=== PATIENT | female | born 1950 | race Caucasian/White ===

== ENCOUNTER 2017-05-18 13:58 | Observation (INO) | payer MEDICARE, MEDICAID, SELFPAY ==
[2017-05-18] VITALS (11 sets, daily range): BP systolic 129–185; BP diastolic 63–110; PULSE 80–130; RESP 16–24; TEMP 36.6–36.8; O2SAT 95–98; BMI 49.8; BMI 26.1
--- NOTE | 2017-05-18 14:31 | XR_ITS ---
XR chest portable COMPARISON: Portable upright chest 02/15/2017 HISTORY: Is a right TECHNIQUE: Portable upright chest and crosstable lateral chest FINDINGS: Again noted is mild volume loss right hemithorax with surgical clips in the right suprahilar region. There is minimal post inflammatory or surgical scarring in the right perihilar region. Left lung field is clear. There is mild generalized cardio megaly. IMPRESSION: Stable postsurgical changes right hemithorax no acute chest pathology noted
[2017-05-18 14:52] LABS: Basophils % 0.2 % (0.1-2.0); Eosinophils # 0.1 K/mm3 (0.0-0.4); Eosinophils % 0.8 % (0.1-12.0); Hematocrit 48.6 % (37.0-47.0); Hemoglobin 15.6 g/dL (12.2-16.2); Lymphocytes % 15.2 K/mm3 (10-50); Mean Corpuscular Hemoglobin 25.8 pg (27.0-31.2); Mean Corpuscular Volume 80.5 fl (81-99); Mean Platelet Volume 9.7 fl (7.4-10.4); Monocytes # 0.9 K/mm3 (0.1-1.0); Neutrophils # 10.1 K/mm3 (1.8-7.8); Neutrophils % 76.7 % (37.0-80.0); Platelet Count 353 K/mm3 (142-424); Red Blood Count 6.03 M/mm3 (4.20-5.40); Red Cell Distribution Width 18.3 % (11.5-17.5); White Blood Count 13.1 K/mm3 (4.8-10.8)
--- NOTE | 2017-05-18 14:52 | XR_ITS ---
XR abdomen min 2V COMPARISON: None HISTORY: Vomiting TECHNIQUE: KUB and upright abdomen FINDINGS: Is a small amount gas within the stomach. There is minimal gas in the splenic flexure of the colon and in the sigmoid colon. There are no dilated loops and there are no air-fluid levels and there is no free air. No abnormal soft tissue shadows. IMPRESSION: Somewhat gasless appearing abdomen consistent with history of vomiting and/or diarrhea
--- NOTE | 2017-05-18 14:54 | HMH.EDWEAK ---
ED Disposition Clinical Impression: A-fib, Dehydration, Hypomagnesemia, Vomiting Disposition: Still a Patient Condition on Discharge: Fair Referrals: Dashawn Cedillo MD [Primary Care Provider] - - Critical Care Critical Care Time: No Attestation: On 05/18/17, the high probability of a clinically significant, sudden or life threatening deterioration of the following system(s) required my full and direct attention, intervention and personal management. The time I documented below is in addition to time spent performing reported procedures but includes the following listed in this critical care notation. Medical Decision Making - Medical Records Medical records reviewed: Yes: I reviewed the patient's medical records. Vital Signs: 05/18/17 14:18 Temperature 97.8 F Temperature Source Oral Respiratory Rate 24 02 Sat by Pulse Oximetry 95 Oxygen Delivery Method Room Air - Lab Data Lab Results 05/18/17 14:40: WBC 13.1 H, RBC 6.03 H, Hgb 15.6, Hct 48.6 H, MCV 80.5 L, MCH 25.8 L, MCHC 32.0, RDW 18.3 H, Plt Count 353, MPV 9.7, Neut % (Auto) 76.7, Lymph % (Auto) 15.2, [place] % (Auto) 7.0, Eos % (Auto) 0.8, Baso % (Auto) 0.2, Neut # (Auto) 10.1 H, Lymph # (Auto) 2.0, [place] # (Auto) 0.9, Eos # (Auto) 0.1, Baso # (Auto) 0.0 05/18/17 14:40: Sodium 142, Potassium 3.5, Chloride 104, Carbon Dioxide 27, Anion Gap 14.5, BUN 11, Creatinine 0.69, Estimated Creat Clear 53, Estimated GFR 86, Est GFR ( Amer) 104, Glucose 116 H, Calcium 9.2, Total Bilirubin 0.6, AST 9 L, ALT 16, Alkaline Phosphatase 162 H, Total Creatine Kinase 15 L, CK-MB (CK-2) 0.5, CK-MB (CK-2) Rel Index 3.3, Troponin I < 0.02, Total Protein 7.4, Albumin 2.5 L, Globulin 4.9 H, Albumin/Globulin Ratio 0.5 L 05/18/17 14:40: Lactic Acid 1.1 05/18/17 14:40: B-Natriuretic Peptide 448 H 05/18/17 14:40: Magnesium 1.3 L Result diagrams: 05/18/17 14:40 05/18/17 14:40 Orders (Tests/Meds): ED MEDICATIONS Generic Name Dose Route Start Last Admin Trade Name Freq PRN Reason Stop Dose Admin Sodium Chloride 1,000 mls @ 999 mls/hr 05/18/17 15:00 05/18/17 15:17 Sod Chlor 0.9% 1000ml Bag IV 05/18/17 16:00 999 mls/hr .Q1H1M CARLO Administration Diltiazem HCl 100 mg/ Sodium 100 mls @ 5 mls/hr 05/18/17 15:09 Chloride IV 06/17/17 15:08 .Q20H CARLO Protocol Discontinued Medications Generic Name Dose Route Start Last Admin Trade Name Freq PRN Reason Stop Dose Admin Diltiazem HCl 10 mg 05/18/17 14:54 05/18/17 15:17 Cardizem 25mg/5ml Vial IV 05/18/17 14:55 10 mg ONCE ONE Administration ORDERS Category Date Time Status XR abdomen min 2V Stat Exams 05/18/17 14:52 Taken XR chest AP Routine Exams 05/18/17 15:07 Taken XR chest portable Stat Exams 05/18/17 14:31 Taken Diarrhea Panel, PCR Stat Lab 05/18/17 14:50 Ordered Blood Culture Stat Micro 05/18/17 14:40 Received - ECG Data Tracing #1 Atrial fibrillation with rapid ventricular response of 154/min. Normal ST segment. ECG initial impression date: 05/18/17 ECG initial impression time: 14:58 - Davide Inquiry Pt receiving controlled substance: No [place] was queried for this patient: No Medical Decision Making Narrative: After 1 L of IV fluids at heart rate was reduced 124/min review of the chest x-ray was unremarkable. Her magnesium was low and her white count was 13. Call Dr. Bailey her primary care physician who advised to admit her for IV fluid therapy give her 2 g of magnesium and and Xopenex therapy. Weakness HPI - General Chief complaint: Weakness Stated complaint: WEAKNESS,D/V FOR 1 WK Mode of Arrival: Wheelchair Limitations: No Limitations Description of Symptoms (Recalled from ER Triage Doc. by RN): n/v/d x1 week; afib that is normally controlled with meds; slight soa with a cough - History of Present Illness HPI Narrative: 66 years old white female smoker with history of hypertension atrial fibrillation's and COPD. 7 days ago
--- NOTE | 2017-05-18 14:57 | ED_ITS ---
ED Disposition Clinical Impression: A-fib, Dehydration, Hypomagnesemia, Vomiting Disposition: Still a Patient Condition on Discharge: Fair Referrals: Dashawn Cedillo MD [Primary Care Provider] - - Critical Care Critical Care Time: No Attestation: On 05/18/17, the high probability of a clinically significant, sudden or life threatening deterioration of the following system(s) required my full and direct attention, intervention and personal management. The time I documented below is in addition to time spent performing reported procedures but includes the following listed in this critical care notation. Medical Decision Making - Medical Records Medical records reviewed: Yes: I reviewed the patient's medical records. Vital Signs: 05/18/17 14:18 Temperature 97.8 F Temperature Source Oral Respiratory Rate 24 02 Sat by Pulse Oximetry 95 Oxygen Delivery Method Room Air - Lab Data Lab Results 05/18/17 14:40: WBC 13.1 H, RBC 6.03 H, Hgb 15.6, Hct 48.6 H, MCV 80.5 L, MCH 25.8 L, MCHC 32.0, RDW 18.3 H, Plt Count 353, MPV 9.7, Neut % (Auto) 76.7, Lymph % (Auto) 15.2, [place] % (Auto) 7.0, Eos % (Auto) 0.8, Baso % (Auto) 0.2, Neut # (Auto) 10.1 H, Lymph # (Auto) 2.0, [place] # (Auto) 0.9, Eos # (Auto) 0.1, Baso # (Auto) 0.0 05/18/17 14:40: Sodium 142, Potassium 3.5, Chloride 104, Carbon Dioxide 27, Anion Gap 14.5, BUN 11, Creatinine 0.69, Estimated Creat Clear 53, Estimated GFR 86, Est GFR ( Amer) 104, Glucose 116 H, Calcium 9.2, Total Bilirubin 0.6, AST 9 L, ALT 16, Alkaline Phosphatase 162 H, Total Creatine Kinase 15 L, CK -MB (CK-2) 0.5, CK-MB (CK-2) Rel Index 3.3, Troponin I < 0.02, Total Protein 7.4 , Albumin 2.5 L, Globulin 4.9 H, Albumin/Globulin Ratio 0.5 L 05/18/17 14:40: Lactic Acid 1.1 05/18/17 14:40: B-Natriuretic Peptide 448 H 05/18/17 14:40: Magnesium 1.3 L Result diagrams: 05/18/17 14:40 05/18/17 14:40 Orders (Tests/Meds): ED MEDICATIONS Generic Name Dose Route Start Last Admin Trade Name Freq PRN Reason Stop Dose Admin Sodium Chloride 1,000 mls @ 999 mls/hr 05/18/17 15:00 05/18/17 15:17 Sod Chlor 0.9% 1000ml Bag IV 05/18/17 16:00 999 mls/hr .Q1H1M CARLO Administration Diltiazem HCl 100 mg/ Sodium 100 mls @ 5 mls/hr 05/18/17 15:09 Chloride IV 06/17/17 15:08 .Q20H CARLO Protocol Discontinued Medications Generic Name Dose Route Start Last Admin Trade Name Freq PRN Reason Stop Dose Admin Diltiazem HCl 10 mg 05/18/17 14:54 05/18/17 15:17 Cardizem 25mg/5ml Vial IV 05/18/17 14:55 10 mg ONCE ONE Administration ORDERS Category Date Time Status XR abdomen min 2V Stat Exams 05/18/17 14:52 Taken XR chest AP Routine Exams 05/18/17 15:07 Taken XR chest portable Stat Exams 05/18/17 14:31 Taken Diarrhea Panel, PCR Stat Lab 05/18/17 14:50 Ordered Blood Culture Stat Micro 05/18/17 14:40 Received - ECG Data Tracing #1 Atrial fibrillation with rapid ventricular response of 154/min. Normal ST segment. ECG initial impression date: 05/18/17 ECG initial impression time: 14:58 - Davide Inquiry Pt receiving controlled substance: No [place]ide was queried for this patient: No Medical Decision Making Narrative: After 1 L of IV fluids at heart rate was reduced 124/min review of the chest x- ray was un
[2017-05-18 15:01] LABS: Magnesium 1.3 mg/dL (1.4-2.2)
--- NOTE | 2017-05-18 15:07 | XR_ITS ---
XR chest AP COMPARISON: Portable upright chest same date HISTORY: Shortness of breath TECHNIQUE: Crosstable lateral chest FINDINGS: The lung bullock are grossly clear of infiltrate. Surgical clips are seen in the upper portion of the chest. The thoracic spine appears normal. IMPRESSION: Crosstable lateral chest combined with the portable upright chest confirming no acute chest pathology
[2017-05-18 15:09] LABS: Lactic Acid 1.1 mmol/L (0.4-2.0)
[2017-05-18 15:15] LABS: Alanine Aminotransferase 16 U/L (12-78); Albumin Level 2.5 gm/dL (3.4-5.0); Albumin/Globulin Ratio 0.5 (1.1-1.8); Alkaline Phosphatase 162 U/L (46-116); Anion Gap 14.5 mEq/L (5-15); Aspartate Amino Transferase 9 U/L (15-37); Bilirubin,Total 0.6 mg/dL (0.2-1.0); Blood Urea Nitrogen 11 mg/dL (7-18); CKMB Relative Index 3.3 U/L (0-4.0); Calcium 9.2 mg/dL (8.5-10.1); Carbon Dioxide 27 mmol/L (21.0-32.0); Chloride 104 mmol/L (98-107); Creatine Kinase 15 U/L (26-192); Creatine Kinase MB 0.5 mg/ml (0.0-3.6); Creatinine Clearance Estimated 53 mL/min (0-300); Creatinine,Serum 0.69 mg/dL (0.55-1.02); Estimated Glomerular Filt Rate 86 ml/min (>60); GFR (African American) 104 ML/MIN (>60); Globulin 4.9 gm/dl (1.3-3.2); Glucose 116 mg/dL (74-106); Potassium 3.5 mmoL/L (3.5-5.1); Sodium 142 mmol/L (136-145); Total Protein,Serum 7.4 gm/dL (6.4-8.2); Troponin I < 0.02 ng/ml (0.00-0.06)
--- NOTE | 2017-05-18 17:02 | PC.NURSE ---
STOPPED DILTIAZEM PER ADMITTING PCP REQUEST
--- NOTE | 2017-05-18 17:39 | HMH.HP ---
*Admission Date: 05/18/17 *Chief complaint: weakness/fatigue/vomiting *History of present illness: 66-year-old white female with multiple medical problems including chronic atrial fibrillation, chronic edema, diastolic and systolic CHF, who over the past couple of days has had nausea and vomiting with minimal p.o. intake. She has been feeling very lethargic, brought to the emergency department where she was found to have heart rates in the 150 range with dehydration. She was given a dose of intravenous Cardizem as well as IV fluids which improved her heart rate to 130s. She is admitted to hospital for IV fluids and resumption of regular medications and observation of her heart rate. [facility] History Medical History: Reports:: Anxiety, Arrhythmia, Atherosclerotic Heart Disease, Atrial Fibrillation, Congestive Heart Failure, Depression, Diabetes Mellitus Type 2, Renal Insufficiency - *Social History Educational Level: Completed High School Alcohol Intake: never - Psychiatric History Expresses thoughts of harming self/others: None Suicide Plan Description: No Plan Review of Systems - Review of Systems Review of systems:: unable to obtain, other, pertinent systems reviewed and negative unless documented below Meds Home Medications Medication Instructions Recorded Confirmed Type Apixaban [Eliquis] 1 tab PO DAILY 05/18/17 05/18/17 History Estrogens, Conjugated [Premarin] 1 pow PO DAILY 05/18/17 05/18/17 History Estrogens, Conjugated [Premarin] See Protocol PO DIRECTED 05/18/17 05/18/17 History Gabapentin [Gabapentin 300mg Cap] 1 tab PO DAILY 05/18/17 05/18/17 History Levothyroxine Sodium 1 tab PO DAILY 05/18/17 05/18/17 History [Levothyroxine 50mcg (0.05mg) Tab] PARoxetine HCl [Paroxetine HCl] 1 tab PO DIRECTED 05/18/17 05/18/17 History dilTIAZem HCl [Diltiazem HCl] 1 tab PO DAILY 05/18/17 05/18/17 History Allergies Allergy/AdvReac Type Severity Reaction Status Date / Time Sulfa (Sulfonamide Allergy Intermediate I-HIVES Verified 05/18/17 14:22 Antibiotics) [SULFA (SULFONAMIDE ANTIBIOTICS)] Exam Vital signs and Labs for Last 24 Hours: Temp Pulse Resp BP Pulse Ox 97.8 F 127 H 18 158/83 98 05/18/17 17:16 05/18/17 17:16 05/18/17 17:16 05/18/17 17:16 05/18/17 17:05 I & O for Last 24 hours: Intake & Output 05/16/17 05/17/17 05/18/17 05/19/17 11:59 11:59 11:59 11:59 Intake Total 1400 / 1400 Balance 1400 / 1400 Narrative: Patient is alert, somewhat disheveled. Sitting on the side of the bed, oriented ?2. Little fuzzy about the date but that is her baseline. Lungs have good air movement with some scattered rhonchi, heart rate irregular in the 120 range. Distal perfusion is good, no edema. Abdomen soft and nontender. Assessment and Plan (1) A-fib Current visit: Yes Status: Acute Category: Medical Code(s): I48.91 - Unspecified atrial fibrillation (2) Dehydration Current visit: Yes Status: Acute Category: Medical Code(s): E86.0 - Dehydration (3) Hypomagnesemia Current visit: Yes Status: Acute Category: Medical Code(s): E83.42 - Hypomagnesemia (4) Vomiting Current visit: Yes Status: Acute Category: Medical Code(s): R11.10 - Vomiting, unspecified - Assessment and plan all Dx Assessment and Plan for all problems:: Plan will be to admit to hospital. IV fluids. Replace magnesium. I think rehydration and restarting her regular medications will resolve the rapid response to atrial fibrillation. Close observation. Labs in the morning.
--- NOTE | 2017-05-18 17:42 | P.HP_ITS ---
*Admission Date: 05/18/17 *Chief complaint: weakness/fatigue/vomiting *History of present illness: 66-year-old white female with multiple medical problems including chronic atrial fibrillation, chronic edema, diastolic and systolic CHF, who over the past couple of days has had nausea and vomiting with minimal p.o. intake. She has been feeling very lethargic, brought to the emergency department where she was found to have heart rates in the 150 range with dehydration. She was given a dose of intravenous Cardizem as well as IV fluids which improved her heart rate to 130s. She is admitted to hospital for IV fluids and resumption of regular medications and observation of her heart rate. [facility] History Medical History: Reports:: Anxiety, Arrhythmia, Atherosclerotic Heart Disease, Atrial Fibrillation, Congestive Heart Failure, Depression, Diabetes Mellitus Type 2, Renal Insufficiency - *Social History Educational Level: Completed High School Alcohol Intake: never - Psychiatric History Expresses thoughts of harming self/others: None Suicide Plan Description: No Plan Review of Systems - Review of Systems Review of systems:: unable to obtain, other, pertinent systems reviewed and negative unless documented below Meds Home Medications Medication Instructions Recorded Confirmed Type Apixaban [Eliquis] 1 tab PO DAILY 05/18/17 05/18/17 History Estrogens, Conjugated [Premarin] 1 pow PO DAILY 05/18/17 05/18/17 History Estrogens, Conjugated [Premarin] See Protocol PO DIRECTED 05/18/17 05/18/17 History Gabapentin [Gabapentin 300mg Cap] 1 tab PO DAILY 05/18/17 05/18/17 History Levothyroxine Sodium 1 tab PO DAILY 05/18/17 05/18/17 History [Levothyroxine 50mcg (0.05mg) Tab] PARoxetine HCl [Paroxetine HCl] 1 tab PO DIRECTED 05/18/17 05/18/17 History dilTIAZem HCl [Diltiazem HCl] 1 tab PO DAILY 05/18/17 05/18/17 History Allergies Allergy/AdvReac Type Severity Reaction Status Date / Time Sulfa (Sulfonamide Allergy Intermediate I-HIVES Verified 05/18/17 14:22 Antibiotics) [SULFA (SULFONAMIDE ANTIBIOTICS)] Exam Vital signs and Labs for Last 24 Hours: Temp Pulse Resp BP Pulse Ox 97.8 F 127 H 18 158/83 98 05/18/17 17:16 05/18/17 17:16 05/18/17 17:16 05/18/17 17:16 05/18/17 17:05 I & O for Last 24 hours: Intake & Output 05/16/17 05/17/17 05/18/17 05/19/17 11:59 11:59 11:59 11:59 Intake Total 1400 / 1400 Balance 1400 / 1400 Narrative: Patient is alert, somewhat disheveled. Sitting on the side of the bed, oriented ?2. Little fuzzy about the date but that is her baseline. Lungs have good air movement with some scattered rhonchi, heart rate irregular in the 120 range. Distal perfusion is good, no edema. Abdomen soft and nontender. Assessment and Plan (1) A-fib Current visit: Yes Status: Acute Category: Medical Code(s): I48.91 - Unspecified atrial fibrillation (2) Dehydration Current visit: Yes Status: Acute Category: Medical Code(s): E86.0 - Dehydration (3) Hypomagnesemia Current visit: Yes Status: Acute Category: Medical Code(s): E83.42 - Hypomagnesemia (4) Vomiting Current visit: Yes Status: Acute Category: Medical Code(s): R11.10 - Vomiting, unspecified - Assessment and plan all Dx Assessment and Plan for all problems:: Plan will be to admi
[2017-05-19] VITALS: BP 133/73; PULSE 88; PULSE 90; RESP 20; TEMP 37.1; O2SAT 95
--- NOTE | 2017-05-19 00:28 | PC.NURSE ---
At beginning of shift, pt was experiencing discomfort, and some soa at rest. Rhonchi Bilat. Heart Rate was staying 140's-170. Was complaining of nausea. Notified Dr Cedillo. New order for 1 time dose of cardizem 60mg po, zofran, xopenex 1.25 and 02 at 2L. After medicating, pt was still complaining of nausea and started to cry. Stated legs were cramping and she wanted her son Johnny to come get her. Spoke with Grand daughter on phone per patient request. Explained pt condition. Notifed Dr Cedillo again new order for norco and phenergan. Pt now denies pain and resting well. bp at last check was 133/73, hr 88. Has been in Afib all shift, has a history of Afib. Has no needs at this time and is content. Bed locked in low position, side rails up x 2, call light within reach. Encouraged to notify RN if soa begins or pain/nausea returns. Verbalized understanding.
--- NOTE | 2017-05-19 00:37 | PC.NURSE ---
RN AWARE OF ALL VITAL SIGNS
[2017-05-19 04:00] VITALS: BP 165/81; PULSE 112; PULSE 90; RESP 20; TEMP 36.9; O2SAT 95
[2017-05-19 05:56] VITALS: PULSE 106; PULSE 110; O2SAT 94
[2017-05-19 06:59] LABS: Eosinophils # 0.1 K/mm3 (0.0-0.4); Red Cell Distribution Width 18.2 % (11.5-17.5)
[2017-05-19 07:03] LABS: Anion Gap 10.3 mEq/L (5-15); Blood Urea Nitrogen 9 mg/dL (7-18); Carbon Dioxide 29 mmol/L (21.0-32.0); Chloride 107 mmol/L (98-107); Creatinine Clearance Estimated 66 mL/min (0-300); Creatinine,Serum 0.56 mg/dL (0.55-1.02); Estimated Glomerular Filt Rate 109 ml/min (>60); GFR (African American) 132 ML/MIN (>60); Glucose 88 mg/dL (74-106); Magnesium 1.7 mg/dL (1.4-2.2); Potassium 3.3 mmoL/L (3.5-5.1); Sodium 143 mmol/L (136-145)
[2017-05-19 07:05] LABS: Basophils % 0.3 % (0.1-2.0); Eosinophils % 0.7 % (0.1-12.0); Hematocrit 41.8 % (37.0-47.0); Lymphocytes # 1.9 K/mm3 (0.7-4.5); Lymphocytes % 17.8 K/mm3 (10-50); Mean Corpuscular HGB Conc 31.5 g/dL (31.8-35.4); Mean Corpuscular Hemoglobin 25.8 pg (27.0-31.2); Mean Corpuscular Volume 82.1 fl (81-99); Mean Platelet Volume 9.6 fl (7.4-10.4); Monocytes # 0.8 K/mm3 (0.1-1.0); Monocytes % 7.5 % (1.7-9.3); Neutrophils # 7.7 K/mm3 (1.8-7.8); Neutrophils % 73.7 % (37.0-80.0); Platelet Count 278 K/mm3 (142-424); White Blood Count 10.4 K/mm3 (4.8-10.8)
[2017-05-19 07:06] LABS: Hemoglobin 13.2 g/dL (12.2-16.2)
--- NOTE | 2017-05-19 07:22 | P.CONPHA_ITS ---
[facility] Pharmacy VTE Monitoring - Patient Demographics Admission date: 05/18/17 Report Date: 05/19/17 Time: 07:21 Allergies/Adverse Reactions: Patient Allergies Sulfa (Sulfonamide Antibiotics) [SULFA (SULFONAMIDE ANTIBIOTICS)] Allergy ( Intermediate, Verified 05/18/17 14:22) I-HIVES Height: 1.68 m Weight: 73.652 kg Patient Problems: Current Active Problems A-fib (Acute) Dehydration (Acute) Hypomagnesemia (Acute) Vomiting (Acute) - VTE Risk Labs: VTE Related Lab Results Hgb 13.2 g/dL (12.2-16.2) D 05/19/17 06:30 Hct 41.8 % (37.0-47.0) 05/19/17 06:30 Plt Count 278 K/mm3 (142-424) 05/19/17 06:30 BUN 9 mg/dL (7-18) 05/19/17 06:30 Creatinine 0.56 mg/dL (0.55-1.02) 05/19/17 06:30 Estimated Creat Clear 66 mL/min (0-300) 05/19/17 06:30 Was VTE Risk Assessment Performed: Yes VTE Score: 4 VTE Risk Level: Low Risk - Prophylaxis VTE Prophylaxis Ordered?: Yes Types of VTE Prophylaxis: TEDS Knee High Location of Applied Device: Bilateral Lower Extremeties - VTE Diagnosis Confirmed Treatment or plan recommended: Continue Current Treatment
[2017-05-19 07:52] VITALS: BP 117/62; PULSE 107; RESP 18; TEMP 36.9; O2SAT 95
[2017-05-19 08:00] VITALS: PULSE 110; PULSE 122
--- NOTE | 2017-05-19 08:01 | HMH.DCSUM ---
General - General Admission date: 05/18/17 Discharge date: 05/19/17 HPI HPI: 66-year-old white female with multiple medical problems including chronic atrial fibrillation, chronic edema, diastolic and systolic CHF, who over the past couple of days has had nausea and vomiting with minimal p.o. intake. She has been feeling very lethargic, brought to the emergency department where she was found to have heart rates in the 150 range with dehydration. She was given a dose of intravenous Cardizem as well as IV fluids which improved her heart rate to 130s. She is admitted to hospital for IV fluids and resumption of regular medications and observation of her heart rate. Objective Vital signs: Temp Pulse Resp BP Pulse Ox 98.5 F 107 H 18 117/62 95 05/19/17 07:52 05/19/17 07:52 05/19/17 07:52 05/19/17 07:52 05/19/17 07:52 Narrative: Patient is lying in bed. Alert, awake, oriented. Heart rate is irregular but in the low 100 range. Much improved. Lungs are clear, abdomen soft, no edema. Able to move all extremities. Hospital Course Hospital Course: Patient was admitted overnight, electrolyte disturbances were treated with IV fluid administration. She had no further vomiting. Zofran was used a couple of times. This morning she ate well. She was able to keep her home medications down as a result her heart rate has improved very nicely. She will be discharged home today with regular medications and short-term follow-up in my office. Results Labs on day of discharge: Labs from last 24 hours 05/19/17 05/19/17 06:30 06:30 WBC 10.4 RBC 5.10 Hgb 13.2 D Hct 41.8 MCV 82.1 MCH 25.8 L MCHC 31.5 L RDW 18.2 H Plt Count 278 MPV 9.6 Neut % (Auto) 73.7 Lymph % (Auto) 17.8 [place] % (Auto) 7.5 Eos % (Auto) 0.7 Baso % (Auto) 0.3 Neut # (Auto) 7.7 Lymph # (Auto) 1.9 [place] # (Auto) 0.8 Eos # (Auto) 0.1 Baso # (Auto) 0.0 Sodium 143 Potassium 3.3 L Chloride 107 Carbon Dioxide 29 Anion Gap 10.3 BUN 9 Creatinine 0.56 Estimated Creat Clear 66 Estimated GFR 109 Est GFR ( Amer) 132 D Glucose 88 D Magnesium 1.7 D DS: Diagnosis - Discharge Diagnosis (1) A-fib Status: Chronic (2) Dehydration Status: Acute (3) Hypomagnesemia Status: Acute (4) Vomiting Status: Acute Discharge Plan - Patient Discharge Instructions ACTIVITY: Continue current activity DIET: continue same diet - Follow up Plan Follow up with: Dashawn Cedillo MD [Primary Care Provider] - 05/22/17 Disposition: Home, Self-Longterm Medications: Home Medications Medication Instructions Recorded Confirmed Type Apixaban [Eliquis] 1 tab PO DAILY 05/18/17 05/18/17 History Estrogens, Conjugated [Premarin] 1 pow PO DAILY 05/18/17 05/18/17 History Estrogens, Conjugated [Premarin] See Protocol PO DIRECTED 05/18/17 05/18/17 History Gabapentin [Gabapentin 300mg Cap] 1 tab PO DAILY 05/18/17 05/18/17 History Levothyroxine Sodium 1 tab PO DAILY 05/18/17 05/18/17 History [Levothyroxine 50mcg (0.05mg) Tab] PARoxetine HCl [Paroxetine HCl] 1 tab PO DIRECTED 05/18/17 05/18/17 History dilTIAZem HCl [Diltiazem HCl] 1 tab PO DAILY 05/18/17 05/18/17 History Prescriptions/Medication Reconciliation: Continue Levothyroxine Sodium [Levothyroxine 50mcg (0.05mg) Tab] 1 tab PO DAILY Gabapentin [Gabapentin 300mg Cap] 1 tab PO DAILY dilTIAZem HCl [Diltiazem HCl] 1 tab PO DAILY Apixaban [Eliquis] 1 tab PO DAILY PARoxetine HCl [Paroxetine HCl] 1 tab PO DIRECTED Discontinued Estrogens, Conjugated [Premarin] 1 pow PO DAILY Estrogens, Conjugated [Premarin] See Protocol PO DIRECTED
--- NOTE | 2017-05-19 10:47 | SW/DCPLANNER ---
PATIENT HAS BEEN DISCHARGED FROM THE ACUTE HOSPITAL...PATIENT RESIDES IN THE [facility].. SHE HAS FAMILY THAT CHECKS ON HER REGULARLY AND HELPS TO CARE FOR HER... SHE HAD HOME HEALTH HER LAST ADMISSION WITH P[facility] [place].....
== END 2017-05-19 12:28 | disposition home or self-care (01) ==
LOC: ER 15:53 → 2ND 16:06
PROVIDERS: Admitting Provider Internal Medicine Adolescent Medicine; Emergency Provider Emergency Medicine; Family Provider Internal Medicine Adolescent Medicine; PCP Internal Medicine Adolescent Medicine; Visit Provider Internal Medicine Adolescent Medicine
DX: R11.10 Vomiting, unspecified (principal); I48.2 Chronic atrial fibrillation; E86.0 Dehydration; E83.42 Hypomagnesemia; E11.9 Type 2 diabetes mellitus without complications; I50.20 Unspecified systolic (congestive) heart failure; I25.10 Atherosclerotic heart disease of native coronary artery without angina pectoris
CPT/HCPCS: 36415; 71045; 74019; 80048; 80053; 82550; 82553; 83605; 83735; 83880; 84484; 85025; 87040; 93005; 94640; 96365; 99284; G0378; J2405

== ENCOUNTER 2017-05-28 00:17 | Emergency (ER) | payer MEDICARE, SELFPAY ==
[2017-05-28 00:26] VITALS: BP 129/65; PULSE 79; RESP 14; TEMP 36.6; O2SAT 95; BMI 21.2
[2017-05-28 00:52] LABS: Microscopic, Urine URINE MICROSCOPIC (MICROSCOPIC)
[2017-05-28 00:53] LABS: Basophils % 0.3 % (0.1-2.0); Eosinophils # 0.1 K/mm3 (0.0-0.4); Eosinophils % 1.2 % (0.1-12.0); Hematocrit 43.3 % (37.0-47.0); Hemoglobin 13.7 g/dL (12.2-16.2); Lymphocytes # 2.7 K/mm3 (0.7-4.5); Lymphocytes % 23.3 K/mm3 (10-50); Mean Corpuscular HGB Conc 31.7 g/dL (31.8-35.4); Mean Corpuscular Hemoglobin 26.8 pg (27.0-31.2); Mean Corpuscular Volume 84.6 fl (81-99); Mean Platelet Volume 8.8 fl (7.4-10.4); Monocytes # 0.6 K/mm3 (0.1-1.0); Monocytes % 5.3 % (1.7-9.3); Neutrophils # 8.2 K/mm3 (1.8-7.8); Neutrophils % 69.9 % (37.0-80.0); Platelet Count 393 K/mm3 (142-424); Red Blood Count 5.11 M/mm3 (4.20-5.40); Red Cell Distribution Width 18.4 % (11.5-17.5); White Blood Count 11.8 K/mm3 (4.8-10.8)
[2017-05-28 00:54] LABS: Appearance,Urine CLEAR (Clear); Bilirubin,Urine Negative (Negative); Blood, Urine 1+ (Negative); Color,Urine YELLOW (Yellow); Glucose,Urine (UA) Negative (Negative); Ketones,Urine Negative (Negative); Leukocyte Esterase,Urine Negative (Negative); Nitrate,Urine Negative (Negative); PH,Urine 6.5 (5.0-8.5); Protein,Urine 1+ (Negative); Specific Gravity, Urine <= 1.005 (1.005-1.030); Urobilinogen,Urine 0.2 EU/dl (0.2)
[2017-05-28 01:00] LABS: Bacteria,Urine 1+ /lpf; WBC,Urine Occasional #/hpf (0-3)
[2017-05-28 01:05] LABS: Activated Partial Thrombo Time 34.4 seconds (23.6-34.0); INR 1.13 (0.9-1.1); Prothrombin Time 12.2 seconds (9.4-11.8)
[2017-05-28 01:09] LABS: Alanine Aminotransferase 20 U/L (12-78); Albumin Level 2.6 gm/dL (3.4-5.0); Albumin/Globulin Ratio 0.6 (1.1-1.8); Alkaline Phosphatase 159 U/L (46-116); Anion Gap 11.7 mEq/L (5-15); Aspartate Amino Transferase 15 U/L (15-37); Bilirubin,Total 0.2 mg/dL (0.2-1.0); Blood Urea Nitrogen 10 mg/dL (7-18); Calcium 8.6 mg/dL (8.5-10.1); Carbon Dioxide 27 mmol/L (21.0-32.0); Chloride 103 mmol/L (98-107); Creatinine Clearance Estimated 57 mL/min (0-300); Creatinine,Serum 0.98 mg/dL (0.55-1.02); Estimated Glomerular Filt Rate 57 ml/min (>60); GFR (African American) 69 ML/MIN (>60); Globulin 4.4 gm/dl (1.3-3.2); Glucose 193 mg/dL (74-106); Potassium 3.7 mmoL/L (3.5-5.1); Sodium 138 mmol/L (136-145)
--- NOTE | 2017-05-28 01:29 | HMH.EDUROGF ---
ED Disposition Clinical Impression: Hematuria Qualifiers: Hematuria type: unspecified type Qualified Code(s): R31.9 - Hematuria, unspecified Disposition: Home, Self-Care Condition on Discharge: Good Instructions: DI for Urinary Tract Infection (UTI) Additional Instructions: call pcp for follow up Prescriptions: cephALEXin [Keflex 500mg Cap] 500 mg PO TID #21 cap Referrals: Dashawn Cedillo MD [Primary Care Provider] - - Critical Care Critical Care Time: No Attestation: On 05/28/17, the high probability of a clinically significant, sudden or life threatening deterioration of the following system(s) required my full and direct attention, intervention and personal management. The time I documented below is in addition to time spent performing reported procedures but includes the following listed in this critical care notation. Medical Decision Making - Medical Records Medical records reviewed: Yes: I reviewed the patient's medical records. Vital Signs: 05/28/17 00:26 Temperature 97.8 F Temperature Source Oral Pulse Rate [Right Radial] 79 Respiratory Rate 14 Blood Pressure [Right Arm] 129/65 Blood Pressure Mean [Right Arm] 86 Blood Pressure Position [Right Arm] Sitting 02 Sat by Pulse Oximetry 95 - Lab Data Lab results reviewed: Yes: I reviewed the patient's lab results. Lab Results 05/28/17 00:40: Urine Color Yellow, Urine Appearance Clear, Urine pH 6.5, Ur Specific [place] <= 1.005, Urine Protein 1+, Urine Glucose (UA) Negative, Urine Ketones Negative, Urine Blood 1+, Urine Nitrate Negative, Urine Bilirubin Negative, Urine Urobilinogen 0.2, Ur Leukocyte Esterase Negative, Urine RBC 5-10, Urine WBC Occasional, Ur Squamous Epith Cells 3-5, Urine Bacteria 1+ 05/28/17 00:40: WBC 11.8 H, RBC 5.11, Hgb 13.7, Hct 43.3, MCV 84.6, MCH 26.8 L, MCHC 31.7 L, RDW 18.4 H, Plt Count 393, MPV 8.8, Neut % (Auto) 69.9, Lymph % (Auto) 23.3, [place] % (Auto) 5.3, Eos % (Auto) 1.2, Baso % (Auto) 0.3, Neut # (Auto) 8.2 H, Lymph # (Auto) 2.7, [place] # (Auto) 0.6, Eos # (Auto) 0.1, Baso # (Auto) 0.0 05/28/17 00:40: PT 12.2 H, INR 1.13 H, APTT 34.4 H 05/28/17 00:40: Sodium 138, Potassium 3.7, Chloride 103, Carbon Dioxide 27, Anion Gap 11.7, BUN 10, Creatinine 0.98, Estimated Creat Clear 57, Estimated GFR 57 L, Est GFR ( Amer) 69, Glucose 193 H, Calcium 8.6, Total Bilirubin 0.2, AST 15, ALT 20, Alkaline Phosphatase 159 H, Total Protein 7.0, Albumin 2.6 L, Globulin 4.4 H, Albumin/Globulin Ratio 0.6 L Result diagrams: 05/28/17 00:40 05/28/17 00:40 - [place] Inquiry Pt receiving controlled substance: No Female Urogenital HPI - General Chief complaint: Urogenital-Female Stated complaint: Blood in Urine Time Seen by Provider: 05/28/17 01:29 Mode of Arrival: Family Vehicle Source of Information: Patient, Spouse, Medical Record Limitations: No Limitations Description of Symptoms (Recalled from ER Triage Doc. by RN): HEMATURIA X 1 DAY. PT DENIES ANY PAIN OR OTHER COMPLAINTS. PT STATES SHE TAKES BLOOD THINNERS - History of Present Illness HPI Narrative: pt with episode of hematuria w/o pain or fever tonight Onset (ago): hour(s) Severity: moderate Urinary Symptoms: hematuria : no - Related Data Home Medications Medication Instructions Recorded Confirmed Apixaban [Eliquis] 1 tab PO DAILY 05/18/17 05/28/17 Gabapentin [Gabapentin 300mg Cap] 1 tab PO DAILY 05/18/17 05/28/17 Levothyroxine Sodium 1 tab PO DAILY 05/18/17 05/28/17 [Levothyroxine 50mcg (0.05mg) Tab] PARoxetine HCl [Paroxetine HCl] 1 tab PO DIRECTED 05/18/17 05/28/17 dilTIAZem HCl [Diltiazem HCl] 1 tab PO DAILY 05/18/17 05/28/17 Previous Rx's Medication Instructions Recorded cephALEXin [Keflex 500mg Cap] 500 mg PO TID #21 cap 05/28/17 Allergies Allergy/AdvReac Type Severity Reaction Status Date / Time Sulfa (Sulfonamide Allergy Intermediate I-HIVES Verified 05/18/17 14:22 Antibiotics) [SULFA (SULFONAMIDE ANTIBIO
[2017-05-28 02:22] VITALS: BP 115/67; PULSE 88; RESP 20; TEMP 37.1; O2SAT 95
== END 2017-05-28 02:22 | disposition home or self-care (01) ==
PROVIDERS: Emergency Provider Emergency Medicine; Family Provider Internal Medicine Adolescent Medicine; PCP Internal Medicine Adolescent Medicine
DX: R31.9 Hematuria, unspecified (principal); Z79.01 Long term (current) use of anticoagulants; N28.9 Disorder of kidney and ureter, unspecified; E11.65 Type 2 diabetes mellitus with hyperglycemia; I48.2 Chronic atrial fibrillation; F41.9 Anxiety disorder, unspecified; Z88.2 Allergy status to sulfonamides; F17.210 Nicotine dependence, cigarettes, uncomplicated
CPT/HCPCS: 80053; 81001; 85025; 85610; 85730; 87086; 99282

== ENCOUNTER 2017-06-03 10:28 | Emergency (ER) | payer MEDICARE, MEDICAID, SELFPAY ==
[2017-06-03 10:34] VITALS: BP 117/89; PULSE 81; RESP 20; TEMP 36.4; O2SAT 97; BMI 25.8
--- NOTE | 2017-06-03 10:54 | HMH.EDGENADL ---
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 If bleeding in urine returns, follow-up with urology as referred. Referrals: Dashawn Cedillo MD [Primary Care Provider] - Rahul Campuzano MD [Staff Physician] - (Urology) - Critical Care Critical Care Time: No Attestation: On 06/03/17, the high probability of a clinically significant, sudden or life threatening deterioration of the following system(s) required my full and direct attention, intervention and personal management. The time I documented below is in addition to time spent performing reported procedures but includes the following listed in this critical care notation. Medical Decision Making - Medical Records Medical records reviewed: Yes: I reviewed the patient's medical records. MR Comment: Blood work on previous visit was unremarkable 05/28/17. - [place] Inquiry Pt receiving controlled substance: No Vital Signs: 06/03/17 10:34 06/03/17 11:50 Temperature 97.6 F Temperature Source Oral Pulse Rate [Right Brachial] 81 71 Respiratory Rate 20 18 Blood Pressure [Right Arm] 117/89 129/74 Blood Pressure Mean [Right Arm] 98 92 Blood Pressure Source [Right Arm] Automatic Cuff Automatic Cuff Blood Pressure Position [Right Arm] Sitting Sitting 02 Sat by Pulse Oximetry 97 99 Oxygen Delivery Method Room Air Room Air - Lab Data Lab Results 06/03/17 11:20: Urine Color Yellow, Urine Appearance Clear, Urine pH 7.0, Ur Specific [place] 1.020, Urine Protein 1+, Urine Glucose (UA) Negative, Urine Ketones Negative, Urine Blood Negative, Urine Nitrate Negative, Urine Bilirubin 1+ A, Urine Urobilinogen 0.2, Ur Leukocyte Esterase Negative, Urine RBC Occasional, Urine WBC None, Ur Squamous Epith Cells 5-10, Urine Bacteria 1+ - CT Data CT Scan: Abdomen, Pelvis Time Received: 12:[address] Reviewed: Yes: I have viewed the radiologist's interpretation Findings Narrative: Punctate renal calculi. No ureteral calculi. Possible renal cyst. No acute process. General Adult HPI - General Chief complaint: Vaginal Bleeding Stated complaint: Bleeding from Bowels Mode of Arrival: Ambulatory Limitations: No Limitations Description of Symptoms (Recalled from ER Triage Doc. by RN): Pt reports bleeding from vaginal area x2 days. Pt reports blood is bright red in nature, states had a total hysterectomy several years ago. Pt reports pelvic cramping. - History of Present Illness HPI narrative: The patient complains of what she thinks is vaginal bleeding for 2 days. She says she sees it when she urinates, there is blood in the toilet. She is however having some blood on the pad that she is currently wearing. She said she does not normally leak urine. She is not having dysuria or frequency. She has some suprapubic abdominal discomfort. No fever. She had a hysterectomy a number of years ago, she is not sure why. She is on Eliquis for atrial fibrillation. She was seen here 6 days ago for hematuria. She was started on Keflex. Urine culture showed no growth after 2 days. - Related Data Home Medications Medication Instructions Recorded Confirmed Apixaban [Eliquis] 1 tab PO DAILY 05/18/17 06/03/17 Gabapentin [Gabapentin 300mg Cap] 1 tab PO DAILY 05/18/17 06/03/17 Levothyroxine Sodium 1 tab PO DAILY 05/18/17 06/03/17 [Levothyroxine 50mcg (0.05mg) Tab] PARoxetine HCl [Paroxetine HCl] 1 tab PO DIRECTED 05/18/17 06/03/17 dilTIAZem HCl [Diltiazem HCl] 1 tab PO DAILY 05/18/17 06/03/17 Donepezil HCl [Aricept 10mg tablet] 10 mg PO DAILY 06/03/17 06/03/17 Morphine Sulfate [Morphine Sulfate 20 mg PO BID 06/03/17 06/03/17 ER] Quetiapine Fumarate [Quetiapine 50 mg PO HS 06/03/17 06/03/17 Fumarate] Allergies Allergy/AdvReac Type Severity Reaction Status Date / Ti
--- NOTE | 2017-06-03 11:25 | PC.NURSE ---
Accompanied ER MD during pelvic exam.
[2017-06-03 11:30] LABS: Microscopic, Urine URINE MICROSCOPIC (MICROSCOPIC)
[2017-06-03 11:33] LABS: Appearance,Urine CLEAR (Clear); Blood, Urine Negative (Negative); Color,Urine YELLOW (Yellow); Glucose,Urine (UA) Negative (Negative); Ketones,Urine Negative (Negative); Leukocyte Esterase,Urine Negative (Negative); Nitrate,Urine Negative (Negative); Protein,Urine 1+ (Negative); Urobilinogen,Urine 0.2 EU/dl (0.2)
--- NOTE | 2017-06-03 11:33 | CT_ITS ---
CT abdomen pelvis wo con CLINICAL INDICATION: Hematuria, lower abdominal pain ITS.REASON: hematuria, ? vaginal bleeding, lower abdo pain ORDERING PHYSICIAN: Ayo Velázquez MD PATIENT AGE: 66 years COMPARISON: 04/20/2016 TECHNIQUE: Axial images obtained with sagittal and coronal reformats. PROCEDURE: Oral Contrast: None IV Contrast: None . FINDINGS: Bronchial thickening noted in the lung bases. Patchy density noted in the right lung base and may be due to an area of atelectasis. Mild cardiomegaly. No focal liver lesion evident. No calcified gallstones. Splenic and adrenal glands are unremarkable. There is pancreatic atrophy. No obstructing renal or ureteral calculi there are punctate nonobstructing calculi in the both kidneys. A hyperdensity is present in the upper pole the right kidney at 8 mm and may be due to a hyperdense cyst. 15 mm isodense is present in the lower pole the right kidney suggesting a cyst. Ultrasound may confirm these findings. No intestinal obstruction or free air. No evidence of appendicitis or diverticulitis. There has been prior hysterectomy. No pelvic mass or focal inflammatory change evident. No abnormal pelvic fluid collection. No acute bony anomalies. IMPRESSION: 1. No acute finding. 2. Nonobstructing punctate renal calculi with probable hyperdense and hypodense right renal cyst which may be confirmed with ultrasound if clinically warranted
[2017-06-03 11:46] LABS: Bilirubin,Urine 1+ (Negative)
[2017-06-03 11:47] LABS: RBC,Urine Occasional #/hpf (0-3)
[2017-06-03 11:48] LABS: Bacteria,Urine 1+ /lpf
[2017-06-03 11:50] VITALS: BP 129/74; PULSE 71; RESP 18; O2SAT 99
[2017-06-03 12:29] VITALS: BP 129/74; PULSE 71; RESP 18; TEMP 36.4; O2SAT 99
== END 2017-06-03 12:33 | disposition home or self-care (01) ==
PROVIDERS: Emergency Provider Emergency Medicine; Family Provider Internal Medicine Adolescent Medicine; PCP Internal Medicine Adolescent Medicine
DX: N93.9 Abnormal uterine and vaginal bleeding, unspecified (principal); E11.9 Type 2 diabetes mellitus without complications; N28.9 Disorder of kidney and ureter, unspecified; F17.210 Nicotine dependence, cigarettes, uncomplicated; I48.91 Unspecified atrial fibrillation; Z79.01 Long term (current) use of anticoagulants; F41.8 Other specified anxiety disorders; Z88.2 Allergy status to sulfonamides; I50.9 Heart failure, unspecified
CPT/HCPCS: 74176; 81001; 99283

== ENCOUNTER → 2018-07-24 12:07 | Outpatient (CLI) | payer MEDICARE, MEDICAID, SELFPAY ==
[2018-07-24 12:51] LABS: Basophils # 0.1 K/mm3 (0-0.2); Basophils % 0.4 % (0.1-2.0); Eosinophils # 0.1 K/mm3 (0.0-0.4); Hematocrit 43.6 % (37.0-47.0); Hemoglobin 14.6 g/dL (12.2-16.2); Lymphocytes # 2.1 K/mm3 (0.7-4.5); Lymphocytes % 15.4 % (10-50); Mean Corpuscular HGB Conc 33.5 g/dL (31.8-35.4); Mean Corpuscular Hemoglobin 29.9 pg (27.0-31.2); Mean Corpuscular Volume 89.4 fl (81-99); Mean Platelet Volume 9.4 fl (7.4-10.4); Monocytes # 0.7 K/mm3 (0.1-1.0); Monocytes % 4.9 % (1.7-9.3); Neutrophils # 10.6 K/mm3 (1.8-7.8); Neutrophils % 78.3 % (37.0-80.0); Platelet Count 250 K/mm3 (142-424); Red Blood Count 4.87 M/mm3 (4.20-5.40); White Blood Count 13.6 K/mm3 (4.8-10.8)
[2018-07-24 12:57] LABS: Hemoglobin A1C 6.1 % (0.0-7.0)
[2018-07-24 13:25] LABS: Alanine Aminotransferase 21 U/L (12-78); Albumin Level 3.8 gm/dL (3.4-5.0); Albumin/Globulin Ratio 0.9 (1.1-1.8); Alkaline Phosphatase 195 U/L (46-116); Anion Gap 14.5 mEq/L (5-15); Aspartate Amino Transferase 16 U/L (15-37); Bilirubin,Total 0.5 mg/dL (0.2-1.0); Blood Urea Nitrogen 15 mg/dL (7-18); Calcium 9.3 mg/dL (8.5-10.1); Carbon Dioxide 27 mmol/L (21.0-32.0); Chloride 101 mmol/L (98-107); Creatinine,Serum 1.02 mg/dL (0.55-1.02); Estimated Glomerular Filt Rate 54 ml/min (>60); GFR (African American) 66 ML/MIN (>60); Globulin 4.3 gm/dl (1.3-3.2); Glucose 93 mg/dL (74-106); Magnesium 1.6 mg/dL (1.4-2.2); Potassium 3.5 mmoL/L (3.5-5.1); Sodium 139 mmol/L (136-145); Thyroid Stimulating Hormone 1.23 uIU/ml (0.358-3.740); Total Protein,Serum 8.1 gm/dL (6.4-8.2)
[2018-07-25 20:41] LABS: Vitamin B12 232 pg/mL (232-1245)
== END ==
PROVIDERS: Visit Provider Internal Medicine Adolescent Medicine
DX: E78.5 Hyperlipidemia, unspecified (principal); E11.49 Type 2 diabetes mellitus with other diabetic neurological complication; J44.9 Chronic obstructive pulmonary disease, unspecified; E03.9 Hypothyroidism, unspecified; G25.81 Restless legs syndrome
CPT/HCPCS: 36415; 80053; 82607; 83036; 83735; 84443; 85025

== ENCOUNTER → 2019-02-12 11:39 | Outpatient (CLI) | payer MEDICARE, SELFPAY ==
[2019-02-12 12:19] LABS: Basophils # 0.1 K/mm3 (0-0.2); Basophils % 0.6 % (0.1-2.0); Eosinophils # 0.2 K/mm3 (0.0-0.4); Eosinophils % 1.8 % (0.1-12.0); Lymphocytes # 2.4 K/mm3 (0.7-4.5); Lymphocytes % 26.5 % (10-50); Mean Corpuscular HGB Conc 31.2 g/dL (31.8-35.4); Mean Corpuscular Hemoglobin 29.2 pg (27.0-31.2); Mean Corpuscular Volume 93.5 fl (81-99); Mean Platelet Volume 9.9 fl (7.4-10.4); Monocytes # 0.5 K/mm3 (0.1-1.0); Neutrophils # 6.1 K/mm3 (1.8-7.8); Neutrophils % 66.2 % (37.0-80.0); Platelet Count 305 K/mm3 (142-424); Red Blood Count 5.14 M/mm3 (4.20-5.40); Red Cell Distribution Width 14.4 % (11.5-17.5); White Blood Count 9.2 K/mm3 (4.8-10.8)
[2019-02-12 13:01] LABS: Alanine Aminotransferase 12 U/L (12-78); Albumin Level 3.3 gm/dL (3.4-5.0); Albumin/Globulin Ratio 0.8 (1.1-1.8); Alkaline Phosphatase 174 U/L (46-116); Anion Gap 12.6 mEq/L (5-15); Aspartate Amino Transferase 16 U/L (15-37); Bilirubin,Total 0.5 mg/dL (0.2-1.0); Blood Urea Nitrogen 18 mg/dL (7-18); Calcium 9.1 mg/dL (8.5-10.1); Carbon Dioxide 29 mmol/L (21.0-32.0); Chloride 104 mmol/L (98-107); Chol/HDL Ratio 3.5 (1-3.5); Cholesterol 163 mg/dL (140-200); Creatinine,Serum 1.04 mg/dL (0.55-1.02); Estimated Glomerular Filt Rate 53 ml/min (>60); GFR (African American) 64 ML/MIN (>60); Globulin 3.9 gm/dl (1.3-3.2); Glucose 115 mg/dL (74-106); HDL Cholesterol 47 mg/dL (29-89); LDL Cholesterol 87 mg/dL (0-130); Potassium 4.6 mmoL/L (3.5-5.1); Sodium 141 mmol/L (136-145); Thyroid Stimulating Hormone 1.32 uIU/ml (0.358-3.740); Total Protein,Serum 7.2 gm/dL (6.4-8.2); Triglycerides 144 mg/dL (30-200); VLDL Cholesterol 29 mg/dL (0-40)
== END ==
PROVIDERS: Visit Provider Nurse Practitioner Family
DX: E11.49 Type 2 diabetes mellitus with other diabetic neurological complication (principal); E03.9 Hypothyroidism, unspecified; I48.20 Chronic atrial fibrillation, unspecified
CPT/HCPCS: 36415; 80053; 80061; 83036; 84443; 85025

== ENCOUNTER 2019-09-10 08:38 | Emergency (ER) | payer MEDICARE, SELFPAY ==
[2019-09-10 08:39] VITALS: BP 196/94; PULSE 104; RESP 18; TEMP 36.9; O2SAT 95; BMI 25.8
--- NOTE | 2019-09-10 08:53 | ECG_ITS ---
APPROVED REPORT Exam: Resting ECG HR:96 bpm ECG Measurements Heart Rate 96 AXES QRSd 66 QRS 46 QT 340 T 16 QTc 429 <Conclusion> Atrial fibrillation Abnormal ECG Electronically signed by : Dashawn Cedillo, 09/10/2019 17:41:33
--- NOTE | 2019-09-10 08:53 | XR_ITS ---
PROCEDURE: XR CHEST PORTABLE CLINICAL HISTORY: cough COMPARISON: [facility] CT CHEST W/O CONTRAST from 01/13/2017 CXR2 XR chest AP from 05/18/2017 CXR1VP XR chest portable from 05/18/2017 XR CHEST PORTABLE from 05/11/2019 FINDINGS: The lung bullock are well-expanded and appear clear of infiltrate. There is mild or borderline cardiomegaly. There are surgical clips right hilum with mild postsurgical deformity posterior aspect right 5th rib. IMPRESSION: Stable mild cardiomegaly, no acute chest pathology noted Dictated by: Dr. Tian Madrigal MD 09/10/2019 09:[address] Tian Madrigal MD in [place] 09/10/2019 09:48
--- NOTE | 2019-09-10 08:53 | CT_ITS ---
PROCEDURE: CT HEAD/BRAIN WO CON CLINICAL INDICATION: dizzy COMPARISON: [facility] CT HEAD W/O CONTRAST from 01/08/2017 TECHNIQUE: Axial images obtained. All CT scans at the facility use one or more dose reduction, viz: automated exposure control, ma/kV adjustment per patient size (including targeted exams where dose is matched to indication, i.e. head), or iterative reconstruction technique. FINDINGS: No midline shift, mass effect, intracranial hemorrhage, hydrocephalus, or extra-axial fluid collection is evident. There are mild periventricular hypodensities suggesting mild chronic ischemic white matter changes. The sylvian fissures and cortical sulci are mildly prominent the sulci particularly over the frontal lobes. The calvarium has an unremarkable appearance. No mastoid effusion. The internal auditory canals appear normal bilaterally. No sinus air-fluid level. IMPRESSION: Mild age-appropriate cortical atrophy and mild chronic white matter changes, no acute intracranial pathology noted Dictated by: Dr. Tian Madrigal MD 09/10/2019 09:[address] Tian Madrigal MD in [place] 09/10/2019 09:44
[2019-09-10 09:16] LABS: Basophils # 0.1 K/mm3 (0-0.2); Basophils % 0.5 % (0.1-2.0); Eosinophils # 0.2 K/mm3 (0.0-0.4); Eosinophils % 1.5 % (0.1-12.0); Hematocrit 45.7 % (37.0-47.0); Hemoglobin 15.3 g/dL (12.2-16.2); Lymphocytes % 30.5 % (10-50); Mean Corpuscular HGB Conc 33.5 g/dL (31.8-35.4); Mean Corpuscular Hemoglobin 29.9 pg (27.0-31.2); Mean Corpuscular Volume 89.1 fl (81-99); Mean Platelet Volume 9.6 fl (7.4-10.4); Monocytes # 0.6 K/mm3 (0.1-1.0); Monocytes % 5.5 % (1.7-9.3); Neutrophils # 6.2 K/mm3 (1.8-7.8); Platelet Count 236 K/mm3 (142-424); Red Blood Count 5.13 M/mm3 (4.20-5.40); Red Cell Distribution Width 13.7 % (11.5-17.5)
[2019-09-10 09:27] LABS: Alanine Aminotransferase 11 U/L (12-78); Albumin Level 4.1 g/dl (3.5-5.0); Albumin/Globulin Ratio 1.2 (1.1-1.8); Alkaline Phosphatase 203 U/L (38-126); Aspartate Amino Transferase 27 U/L (14-36); Bilirubin,Total 0.6 mg/dl (0.2-1.3); Blood Urea Nitrogen 16 mg/dl (7-17); Calcium 9.9 mg/dl (8.4-10.2); Carbon Dioxide 33 mmol/L (22.0-30.0); Chloride 99 mmol/L (98-107); Creatinine Clearance Estimated 58 mL/min (50-200); Estimated Glomerular Filt Rate 50 ml/min (>60); GFR (African American) 60 ML/MIN (>60); Globulin 3.4 g/dL (1.3-3.2); Glucose 119 mg/dl (74-100); Sodium 137 mmol/L (136-145); Total Protein,Serum 7.5 g/dl (6.3-8.2)
[2019-09-10 09:36] LABS: NT Pro Brain Natriuretic Pep. 770 pg/mL (0-125)
[2019-09-10 09:43] LABS: Troponin I < 0.01 ng/ml (0.00-0.034)
[2019-09-10 10:05] VITALS: BP 182/92; PULSE 96; RESP 20; O2SAT 95
--- NOTE | 2019-09-10 10:14 | PC.NURSE ---
PT YELLED FROM HER ROOM IF A NURSE DOESN'T COME IN HERE RIGHT NOW, IM LEAVING . THIS NURSE WENT INTO ROOM IMMEDIATELY AND PT STATED I WANT THE DR NOW. I WANT TO KNOW WHAT IS GOING ON RIGHT NOW . THIS NURSE ADVISED THAT WE HAD A FEW EMERGENT SITUATIONS AT THE MOMENT AND THAT I APOLOGIZE AND WOULD SEND THE MD IN SOON HE IS ABLE. PT STATED WELL HELL, THIS IS THE SLOWEST DAMN PLACE [place] EVER SEEN. SOMEONE WILL HERE WAITING ON YOU ALL . THIS NURSE STATED I AM SORRY THAT YOU FEEL THAT WAY AND IT IS NOT OUR INTENTIONS TO ALLOW ANYONE TO WITHIN THIS DEPARTMENT. I ASSURE YOU THAT WE ARE WORKING QUICKLY WE CAN AND I WILL SEND THE MD IN SOON HE WAS AVAILABLE .
--- NOTE | 2019-09-10 10:20 | HMH.EDDIZZ ---
ED Disposition Clinical Impression: M?ni?re's disease Disposition: Home, Self-Care Condition on Discharge: Good Instructions: Vertigo Prescriptions: Triamterene/Hydrochlorothiazid [Maxzide 37.5 mg-25 mg Tablet] 1 each PO DAILY 10 Days #10 tab Transmission Status: Pending to [facility] Meclizine HCl [Meclizine 25mg Tab] 25 mg PO TID 10 Days #30 tab Transmission Status: Pending to [facility] Referrals: Dashawn Cedillo MD [Primary Care Provider] - - Critical Care Critical Care Time: No Attestation: On 09/10/19, the high probability of a clinically significant, sudden or life threatening deterioration of the following system(s) required my full and direct attention, intervention and personal management. The time I documented below is in addition to time spent performing reported procedures but includes the following listed in this critical care notation. Medical Decision Making - Medical Records Medical records reviewed: Yes: I reviewed the patient's medical records. - [place] Inquiry Pt receiving controlled substance: No Vital Signs: 09/10/19 08:39 09/10/19 10:05 Temperature 98.4 F Temperature Source Oral Pulse Rate [Radial] 104 H 96 H Respiratory Rate 18 20 Blood Pressure [Right Arm] 196/94 H 182/92 H Blood Pressure Mean [Right Arm] 128 122 Blood Pressure Source [Right Arm] Automatic Cuff Automatic Cuff Blood Pressure Position [Right Arm] Sitting Supine 02 Sat by Pulse Oximetry 95 95 Oxygen Delivery Method Room Air - Lab Data Lab results reviewed: Yes: I reviewed the patient's lab results. Lab Results 09/10/19 09:03: WBC 10.0, RBC 5.13, Hgb 15.3, Hct 45.7, MCV 89.1, MCH 29.9, MCHC 33.5, RDW 13.7, Plt Count 236, MPV 9.6, Neut % (Auto) 62.0, Lymph % (Auto) 30.5, [place] % (Auto) 5.5, Eos % (Auto) 1.5, Baso % (Auto) 0.5, Neut # (Auto) 6.2, Lymph # (Auto) 3.0, [place] # (Auto) 0.6, Eos # (Auto) 0.2, Baso # (Auto) 0.1 09/10/19 09:03: Sodium 137, Potassium 4.0, Chloride 99, Carbon Dioxide 33 H, Anion Gap 9.0, BUN 16, Creatinine 1.10 H, Estimated Creat Clear 58, Estimated GFR 50 L, Est GFR ( Amer) 60, Glucose 119 H, Calcium 9.9, Total Bilirubin 0.6, AST 27, ALT 11 L, Alkaline Phosphatase 203 H, Troponin I < 0.01, Total Protein 7.5, Albumin 4.1, Globulin 3.4 H, Albumin/Globulin Ratio 1.2 09/10/19 09:03: NT-Pro-B Natriuret Pep 770 H Result diagrams: 09/10/19 09:03 09/10/19 09:03 Orders (Tests/Meds): ED MEDICATIONS Discontinued Medications Generic Name Dose Route Start Last Admin Trade Name Freq PRN Reason Stop Dose Admin Sodium Chloride 1,000 mls @ 999 mls/hr 09/10/19 09:00 09/10/19 08:56 Sod Chlor 0.9% 1000ml Bag IV 09/10/19 10:00 999 mls/hr .Q1H1M CARLO Administration ORDERS Category Date Time Status Troponin I Q3H Lab 09/10/19 12:00 Ordered Troponin I Q3H Lab 09/10/19 15:00 Ordered - CT Data CT Scan: Head, Chest Time Received: 10:00 Preliminary Findings: Normal/NAD Dizzy HPI - General Chief Complaint: Dizziness Stated Complaint: dizzy Time Seen by Provider: 09/10/19 10:00 Mode of Arrival: Wheelchair Source of Information: Patient Limitations: No Limitations Description of Symptoms (Recalled from ER Triage Doc. by RN): Complaint of constant dizziness. - History of Present Illness HPI Narrative: 68-year-old female presents the emergency department with acute onset of dizziness. She states she has been feeling this for about 24 hours. Patient also states that she does have a family history of M?ni?re's disease. She states even laying down she feels an acute sense of dizziness. She also complains of mild nausea with no episodes of emesis. Patient denies any recent cough or shortness of breath. Patient denies any fever shakes or chills. Patient denies any sore throat or headache. Patient denies any loss of taste or smell. - Related Data Home Medications Medication Instructions Recorded Confirmed Apixaban [Eliquis 2.5m
[2019-09-10 10:42] VITALS: BP 209/109; PULSE 92; O2SAT 96
[2019-09-10 10:48] VITALS: BP 170/113; PULSE 96; RESP 20; TEMP 36.9; O2SAT 95
== END 2019-09-10 10:50 | disposition home or self-care (01) ==
PROVIDERS: Emergency Provider Family Medicine; PCP Internal Medicine Adolescent Medicine
DX: H81.09 Meniere's disease, unspecified ear (principal); E11.9 Type 2 diabetes mellitus without complications; N28.9 Disorder of kidney and ureter, unspecified; I48.20 Chronic atrial fibrillation, unspecified; F41.8 Other specified anxiety disorders; F17.210 Nicotine dependence, cigarettes, uncomplicated; Z88.2 Allergy status to sulfonamides; I50.9 Heart failure, unspecified; Z79.899 Other long term (current) drug therapy
CPT/HCPCS: 70450; 71045; 80053; 83880; 84484; 85025; 93005; 96365; 99284

== ENCOUNTER 2021-03-07 17:38 | Emergency (ER) | payer MEDICARE, MEDICAID, SELFPAY ==
[2021-03-07 17:39] VITALS: BP 162/93; PULSE 75; RESP 20; TEMP 36.8; O2SAT 92; BMI 25.8
[2021-03-07 18:10] VITALS: BP 152/86; PULSE 78; RESP 18; O2SAT 95
--- NOTE | 2021-03-07 18:31 | XR_ITS ---
PROCEDURE INFORMATION: Exam: XR Chest Exam date and time: 03/07/2021 6:31 PM Age: 70 years old Clinical indication: Sternal or substernal pain; Prior surgery; Surgery date: 6+ months; Surgery type: Lung cancer. ; Patient HX: Current smoker with chest pain for a week. ; Additional info: Chest pian TECHNIQUE: Imaging protocol: XR of the chest. Views: 1 view. COMPARISON: CR XR CHEST PORTABLE 09/10/2019 9:33 AM FINDINGS: Lungs: Interstitial haziness in the left lower lobe which could indicate developing pneumonia. Emphysema. Pleural spaces: Unremarkable. No pleural effusion. No pneumothorax. Heart/Mediastinum: Unremarkable. No cardiomegaly. Bones/joints: Unremarkable. IMPRESSION: Interstitial haziness in the left lower lobe which could indicate pneumonia.
[2021-03-07 19:38] LABS: Basophils % 0.3 % (0.1-2.0); Eosinophils # 0.2 K/mm3 (0.0-0.4); Eosinophils % 1.8 % (0.1-12.0); Hematocrit 42.2 % (37.0-47.0); Hemoglobin 14.2 g/dL (12.2-16.2); Lymphocytes # 3.1 K/mm3 (0.7-4.5); Lymphocytes % 33.7 % (10-50); Mean Corpuscular HGB Conc 33.7 g/dL (31.8-35.4); Mean Corpuscular Hemoglobin 30.7 pg (27.0-31.2); Mean Corpuscular Volume 91.2 fl (81-99); Monocytes # 0.5 K/mm3 (0.1-1.0); Monocytes % 5.7 % (1.7-9.3); Neutrophils # 5.3 K/mm3 (1.8-7.8); Neutrophils % 58.4 % (37.0-80.0); Platelet Count 293 K/mm3 (142-424); Red Blood Count 4.63 M/mm3 (4.20-5.40); Red Cell Distribution Width 14.2 % (11.5-17.5); White Blood Count 9.1 K/mm3 (4.8-10.8)
[2021-03-07 19:42] LABS: Alanine Aminotransferase 12 U/L (12-78); Albumin Level 3.7 g/dl (3.5-5.0); Albumin/Globulin Ratio 1.3 (1.1-1.8); Alkaline Phosphatase 113 U/L (38-126); Anion Gap 6.2 mEq/L (5-15); Aspartate Amino Transferase 26 U/L (14-36); Bilirubin,Total 0.2 mg/dl (0.2-1.3); Blood Urea Nitrogen 10 mg/dl (7-17); Calcium 8.8 mg/dl (8.4-10.2); Carbon Dioxide 34 mmol/L (22.0-30.0); Chloride 100 mmol/L (98-107); Creatinine Clearance Estimated 62 mL/min (50-200); Estimated Glomerular Filt Rate 55 ml/min (>60); GFR (African American) 67 ML/MIN (>60); Globulin 2.8 g/dL (1.3-3.2); Glucose 105 mg/dl (74-100); Potassium 4.2 mmoL/L (3.5-5.1); Sodium 136 mmol/L (136-145); Total Protein,Serum 6.5 g/dl (6.3-8.2)
[2021-03-07 19:54] LABS: Troponin I < 0.01 ng/ml (0.00-0.034)
--- NOTE | 2021-03-07 20:01 | HMH.EDGENADL ---
ED Disposition Clinical Impression: Pneumonia Disposition: Home, Self-Care Condition on Discharge: Good Instructions: Pneumonia-Adult, Chronic Obstructive Pulmonary Disease Additional Instructions: Please follow-up with your primary care physician in 2 to 3 days for further management. You were found to have pneumonia please take your Z-Gavino as prescribed. Please also take MDI inhaler as needed. May take Tylenol and ibuprofen for fever and pain control. Please return back to the emergency department for any concerning symptoms such as difficulty breathing, chest pain, inability to eat and drink or any other concerning symptoms. Please continue to stay hydrated and eat 3 balanced meals in the setting of your viral infection. Prescriptions: Azithromycin [Z-Gavino 250mg Tab*] 250 mg PO UD DOSE PK #6 tab Transmission Status: Received by [facility] Referrals: Benjamín Rocha [Primary Care Provider] - Time of Disposition: 20:20 - Critical Care Critical Care Time: No Attestation: On 03/07/21, the high probability of a clinically significant, sudden or life threatening deterioration of the following system(s) required my full and direct attention, intervention and personal management. The time I documented below is in addition to time spent performing reported procedures but includes the following listed in this critical care notation. Medical Decision Making - Medical Records Medical records reviewed: Yes: I reviewed the patient's medical records. - [place]ide Inquiry Pt receiving controlled substance: No Vital Signs: 03/07/21 17:39 03/07/21 18:10 03/07/21 20:08 Temperature 98.3 F 98.3 F Temperature Source Oral Pulse Rate 78 72 Pulse Rate [Right] 75 Respiratory Rate 20 18 18 Blood Pressure 152/86 H 145/75 H Blood Pressure [Right Arm] 162/93 H Blood Pressure Mean [Right Arm] 116 Blood Pressure Source [Right Arm] Automatic Cuff Blood Pressure Position [Right Arm] Sitting 02 Sat by Pulse Oximetry 92 L 95 Oxygen Delivery Method Room Air - Lab Data Lab results reviewed: Yes: I reviewed the patient's lab results. Lab Results 03/07/21 19:14: WBC 9.1, RBC 4.63, Hgb 14.2, Hct 42.2, MCV 91.2, MCH 30.7, MCHC 33.7, RDW 14.2, Plt Count 293, MPV 9.0, Neut % (Auto) 58.4, Lymph % (Auto) 33.7, [place] % (Auto) 5.7, Eos % (Auto) 1.8, Baso % (Auto) 0.3, Neut # (Auto) 5.3, Lymph # (Auto) 3.1, [place] # (Auto) 0.5, Eos # (Auto) 0.2, Baso # (Auto) 0.0 03/07/21 19:14: Sodium 136, Potassium 4.2, Chloride 100, Carbon Dioxide 34 H, Anion Gap 6.2, BUN 10, Creatinine 1.00, Estimated Creat Clear 62, Estimated GFR 55 L, Est GFR ( Amer) 67, Glucose 105 H, Calcium 8.8, Total Bilirubin 0.2, AST 26, ALT 12, Alkaline Phosphatase 113, Troponin I < 0.01, Total Protein 6.5, Albumin 3.7, Globulin 2.8, Albumin/Globulin Ratio 1.3 Result diagrams: 03/07/21 19:14 03/07/21 19:14 Orders (Tests/Meds): ED MEDICATIONS Discontinued Medications Generic Name Dose Route Start Last Admin Trade Name Freq PRN Reason Stop Dose Admin Albuterol/Ipratropium 3 ml 03/07/21 18:31 03/07/21 18:47 Ipratropium/Albuterol 3 Ml Neb IH 03/07/21 18:32 3 ml ONCE ONE Administration Dexamethasone 10 mg 03/07/21 18:31 03/07/21 18:44 Dexamethasone 1mg/1ml Intensol 10ml Udc (Er) PO 03/07/21 18:32 10 mg ONCE ONE Administration Medical Decision Narrative: Mrs. Hanna is a 70-year-old female with past medical history for COPD who presents to the emergency department for cough, congestion and progressively worsening dyspnea for 1 week. Patient is afebrile and hemodynamically stable on arrival. Patient is breathing comfortably with no increased work of breathing. Patient sounds congested. Differentials to consider but not limited to include; COPD exacerbation, viral mediated illness including COVID-19, low suspicion for PE PERC negative. Basic labs, chest x-ray, Covid swab are obtained for further evaluation. Chest x-ray sh
[2021-03-07 20:08] VITALS: BP 145/75; PULSE 72; RESP 18; TEMP 36.8; O2SAT 95
== END 2021-03-07 20:16 | disposition home or self-care (01) ==
PROVIDERS: Emergency Provider Student in an Organized Health Care Education/Training Program; PCP Family Medicine
DX: J18.9 Pneumonia, unspecified organism (principal); F41.8 Other specified anxiety disorders; I48.91 Unspecified atrial fibrillation; E11.9 Type 2 diabetes mellitus without complications; Z79.899 Other long term (current) drug therapy
CPT/HCPCS: 71045; 80053; 84484; 85025; 99282

== ENCOUNTER → 2021-04-13 17:38 | Outpatient (CLI) | payer MEDICARE, SELFPAY ==
[2021-04-13 17:44] LABS: Adenovirus,PCR Not Detected (NotDetected); Bordetella Pertussis Not Detected (NotDetected); Chlamydophila Pneumoniae, PCR Not Detected (NotDetected); Coronavirus 19, PCR Not Detected (NotDetected); Coronavirus 229E Not Detected (NotDetected); Coronavirus NL63 Not Detected (NotDetected); Coronavirus OC43 Not Detected (NotDetected); Coronovirus HKU1,PCR Not Detected (NotDetected); Human Metapneumovirus Not Detected (NotDetected); Influenza A, PCR Not Detected (NotDetected); Influenza AH1, 2009 Not Detected (NotDetected); Influenza AH1, PCR Not Detected (NotDetected); Influenza AH3,PCR Not Detected (NotDetected); Influenza B, PCR Not Detected (NotDetected); Mycoplasma Pneumoniae, PCR Not Detected (NotDetected); Parainfluenza 1, PCR Not Detected (NotDetected); Parainfluenza 2, PCR Not Detected (NotDetected); Parainfluenza 3, PCR Not Detected (NotDetected); Parainfluenza 4, PCR Not Detected (NotDetected); Respiratory Syncytial Virus Not Detected (NotDetected); Rhinovirus/Enterovirus Not Detected (NotDetected)
== END ==
PROVIDERS: Visit Provider Family Medicine
DX: Z20.822 Contact with and (suspected) exposure to COVID-19 (principal); R05.9 Cough, unspecified; R06.2 Wheezing
CPT/HCPCS: 87581; 87632; 87798; C9803; U0003; U0005

== ENCOUNTER 2021-07-05 13:46 | Emergency (ER) | payer MEDICARE, MEDICAID, SELFPAY ==
[2021-07-05 14:05] VITALS: BP 143/92; PULSE 92; RESP 16; TEMP 36.8; O2SAT 94; BMI 24.3
--- NOTE | 2021-07-05 14:09 | HMH.EDUTC ---
[facility] – [place] Disposition Condition on Discharge: Good Time of Disposition: 15:23 <[email or web address] - Last Filed: 07/05/21 15:22> Condition on Discharge: Good <Ayo Guzmán - Last Filed: 07/05/21 16:59> Clinical Impression: Gastroenteritis Vomiting Qualifiers: Vomiting type: unspecified Nausea presence: with nausea Qualified Code(s): R11.2 - Nausea with vomiting, unspecified Disposition: Home, Self-Care Instructions: DI for Vomiting -- Adult Additional Instructions: Monitor temperature. Seek treatment if fever develops. Follow-up immediately if new or worse symptoms worsen or no noticeable improvement over 48 hours. Increase fluids such as water, Gatorade, Powerade, juice or Pedialyte with limited formula/dietary in children No food is okay as long as you are drinking. Once ready to eat start bland such as bananas, rice, applesauce, toast. Contagious until no diarrhea, vomiting, fever times 48 hours without medication Avoid antidiarrheals unless told otherwise. Best to let the virus run its course. Follow-up immediately for new or worsening symptoms or no noticeable improvement over the next 48 hours. Prescriptions: Ondansetron [Zofran 4mg ODT] 4 mg PO BIDP PRN #10 tab PRN Reason: Nausea Transmission Status: Pending to [facility] Referrals: Matt Lorenzo MD [Primary Care Provider] - Medical Decision Making - Davide Jason Pt receiving controlled substance: No - Lab Data Result diagrams: 07/05/21 14:20 07/05/21 14:20 - Physician Consults Physician Consulted: dr lorenzo Time: 15:23 Reason -: Pt condition Comment/Response: discussed pt with dr lorenzo he would like the pt to have ct of abd r/t elevated wbc, abd pain and vomiting <Sade Pope - Last Filed: 07/05/21 15:22> - Medical Records Medical records reviewed: Yes: I reviewed the patient's medical records. - Davide Jason Pt receiving controlled substance: No - Lab Data Result diagrams: 07/05/21 14:20 07/05/21 14:20 - Radiology Data #1 Image(s): Chest Image Reviewed: Yes I reviewed the patient's radiology results, Yes I reviewed the patient's radiology image, Yes I have reviewed radiologist's interpretation Preliminary Findings: Normal/NAD - CT Data CT Scan: Abdomen, Pelvis Time Received: 16:[address] Reviewed: Yes: I have reviewed the patient's CT results, I have viewed the radiologist's interpretation - Reevaluation(s) Time: 16:58 <Ayo Guzmán - Last Filed: 07/05/21 16:59> Vital Signs: 07/05/21 14:05 Temperature 98.3 F Temperature Source Oral Pulse Rate [Left] 92 H Respiratory Rate 16 Blood Pressure [Right Arm] 143/92 H Blood Pressure Mean [Right Arm] 109 02 Sat by Pulse Oximetry 94 L - Lab Data Lab Results 07/05/21 14:11: Urine Color Dark yellow, Urine Appearance Turbid, Urine pH 6.5, Ur Specific [place] > 1.030 H, Urine Protein 3+, Urine Glucose (UA) Negative, Urine Ketones Negative, Urine Blood Negative, Urine Nitrate Negative, Urine Bilirubin Negative, Urine Urobilinogen 1, Ur Leukocyte Esterase Negative 07/05/21 14:20: WBC 13.2 H, RBC 5.18, Hgb 16.1, Hct 48.1 H, MCV 93.0, MCH 31.0, MCHC 33.4, RDW 14.3, Plt Count 419, MPV 9.2, Neut % (Auto) 72.6, Lymph % (Auto) 19.9, [place] % (Auto) 4.6, Eos % (Auto) 0.9, Baso % (Auto) 1.9, Neut # (Auto) 9.6 H, Lymph # (Auto) 2.6, [place] # (Auto) 0.6, Eos # (Auto) 0.1, Baso # (Auto) 0.3 H 07/05/21 14:20: Sodium 133 L, Potassium 4.1, Chloride 96 L, Carbon Dioxide 29, Anion Gap 12.1, BUN 19 H, Creatinine 1.00, Estimated Creat Clear 62, Estimated GFR 55 L, Est GFR ( Amer) 67, Glucose 147 H, Calcium 9.0, Total Creatine Kinase 44, CK-MB (CK-2) 1.4, CK-MB (CK-2) Rel Index 3.2, Troponin I < 0.01 Orders (Tests/Meds): ED MEDICATIONS Discontinued Medications Generic Name Dose Route Start Last Admin Trade Name Freq PRN Reason Stop Dose Admin Sodium Chloride 1,000 mls @ 999 mls/hr 07/05/21 15:45 07/05/21 15:47 Sod Chlor 0.9% 1000ml Bag IV 07/05/21
[2021-07-05 14:31] LABS: Apearance,Urine Turbid (Clear); Color,Urine Dark Yellow (Yellow); PH,Urine 6.5 (5.0-8.5); Specific Gravity, Urine > 1.030 (1.005-1.030)
[2021-07-05 14:32] LABS: Protein,Urine 3+ (Negative)
[2021-07-05 14:33] LABS: Blood, Urine Negative (Negative); Glucose,Urine (UA) Negative (Negative); Ketones,Urine Negative (Negative)
[2021-07-05 14:34] LABS: Bilirubin,Urine Negative (Negative); UTC Leukocyte Esterase,Urine Negative (Negative); UTC Nitrate,Urine Negative (Negative); Urobilinogen,Urine 1 EU/dl (0.2)
[2021-07-05 14:40] LABS: Chloride 96 mmol/L (98-107); Potassium 4.1 mmoL/L (3.5-5.1); Sodium 133 mmol/L (136-145)
[2021-07-05 14:42] LABS: Blood Urea Nitrogen 19 mg/dl (7-17); Creatinine Clearance Estimated 62 mL/min (50-200); Estimated Glomerular Filt Rate 55 ml/min (>60); GFR (African American) 67 ML/MIN (>60)
[2021-07-05 14:43] LABS: Anion Gap 12.1 mEq/L (5-15); Carbon Dioxide 29 mmol/L (22.0-30.0); Creatine Kinase 44 U/L (30-135); Glucose 147 mg/dl (74-100)
[2021-07-05 14:49] LABS: Basophils # 0.3 K/mm3 (0-0.2); Basophils % 1.9 % (0.1-2.0); Eosinophils # 0.1 K/mm3 (0.0-0.4); Eosinophils % 0.9 % (0.1-12.0); Hematocrit 48.1 % (37.0-47.0); Hemoglobin 16.1 g/dL (12.2-16.2); Lymphocytes # 2.6 K/mm3 (0.7-4.5); Lymphocytes % 19.9 % (10-50); Mean Corpuscular HGB Conc 33.4 g/dL (31.8-35.4); Mean Platelet Volume 9.2 fl (7.4-10.4); Monocytes # 0.6 K/mm3 (0.1-1.0); Monocytes % 4.6 % (1.7-9.3); Neutrophils # 9.6 K/mm3 (1.8-7.8); Neutrophils % 72.6 % (37.0-80.0); Platelet Count 419 K/mm3 (142-424); Red Blood Count 5.18 M/mm3 (4.20-5.40); Red Cell Distribution Width 14.3 % (11.5-17.5); White Blood Count 13.2 K/mm3 (4.8-10.8)
[2021-07-05 14:52] LABS: CKMB Relative Index 3.2 U/L (0-4.0); Creatine Kinase MB 1.4 ng/ml (0.0-2.03)
[2021-07-05 14:57] LABS: Troponin I < 0.01 ng/ml (0.00-0.034)
--- NOTE | 2021-07-05 15:13 | XR_ITS ---
FINAL REPORT TECHNIQUE: Chest PA & Lateral CLINICAL HISTORY: elevated wbc COMPARISON: March 07, 2021 FINDINGS: 2 views of the chest were performed. The heart size is mildly enlarged. The mediastinum is within normal limits. There is right perihilar scarring. There are no pleural effusions. There is no pneumothorax. The bony thorax appears intact. There are surgical clips in the right perihilar region. IMPRESSION: No acute cardiopulmonary process. Reviewed, Interpreted and Dictated by Kike Dietz MD Transcribed by Mario Cooper Authenticated by Kike Dietz MD on 07/05/2021 04:17:54 PM [facility]
--- NOTE | 2021-07-05 15:36 | PC.NURSE ---
ED MD at
--- NOTE | 2021-07-05 15:38 | CT_ITS ---
FINAL REPORT TECHNIQUE: After the administration of intravenous contrast, axial images were obtained through the abdomen and pelvis by computed tomography. The study was performed with techniques to keep radiation dose as low as reasonably achievable, (ALARA). Individual dose reduction techniques using automated exposure control or adjustment of mA and/or kV according to the patient's size were employed. CLINICAL HISTORY: n/v/d COMPARISON: June 03, 2017 FINDINGS: Abdomen: There is chronic scarring in the lung bases. There is low attenuation of the hepatic parenchyma consistent with fatty infiltration. There are multiple foci of enhancement within the hepatic parenchyma. Largest focus in the left lobe of the liver measures 2.5 cm as seen on image 20 of series 3. There is a 1.1 cm lesion in the mid right lobe of the liver on image 17 of series 3. There are multiple other smaller enhancing lesions. The gallbladder is present. The spleen is normal size. The pancreas and adrenals appear unremarkable. There are a multitude of small low-attenuation masses throughout both kidneys probably due to multiple cysts. The aorta is normal in caliber. There is no free fluid or adenopathy. Pelvis: The appendix is not identified. The urinary bladder is unremarkable. There is no free fluid or adenopathy. The uterus is not identified. IMPRESSION: Multiple enhancing lesions throughout the liver favoring focal nodular hyperplasia or flash filling of hemangiomas. Recommend ultrasound correlate. Multitude of bilateral renal cysts concerning for polycystic kidney disease. No acute inflammatory process. Reviewed, Interpreted and Dictated by Kike Dietz MD Transcribed by Mario Cooper Authenticated by Kike Dietz MD on 07/05/2021 04:41:31 PM [facility]
--- NOTE | 2021-07-05 15:58 | PC.NURSE ---
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
--- NOTE | 2021-07-05 16:33 | PC.NURSE ---
patient ambulatory to restroom without complications
--- NOTE | 2021-07-05 16:34 | PC.NURSE ---
patient ambulatory back to room from restroom without complications
--- NOTE | 2021-07-05 16:50 | PC.NURSE ---
ED MD at for update on POC
[2021-07-05 17:53] VITALS: BP 166/92; PULSE 91; RESP 18; TEMP 36.8; O2SAT 95
--- NOTE | 2021-07-08 16:17 | ECG_ITS ---
APPROVED REPORT Exam: Resting ECG HR:71 bpm ECG Measurements Heart Rate 71 AXES QRSd 78 QRS 50 QT 371 T 55 QTc 393 Conclusion ATRIAL FIBRILLATION ABNORMAL RHYTHM ECG UNCONFIRMED REPORT Electronically signed by : Dashawn Cedillo MD 07/11/2021 10:14:50
== END 2021-07-05 17:53 | disposition home or self-care (01) ==
LOC: UTC 15:23 → ER 15:28
PROVIDERS: Nurse Practitioner Family; Emergency Provider Emergency Medicine; PCP Family Medicine
DX: H92.01 Otalgia, right ear (principal); R11.2 Nausea with vomiting, unspecified; I50.9 Heart failure, unspecified; N28.1 Cyst of kidney, acquired; I48.91 Unspecified atrial fibrillation; E11.9 Type 2 diabetes mellitus without complications; K76.9 Liver disease, unspecified; N28.9 Disorder of kidney and ureter, unspecified; M19.90 Unspecified osteoarthritis, unspecified site; F41.9 Anxiety disorder, unspecified; F32.A Depression, unspecified; F17.210 Nicotine dependence, cigarettes, uncomplicated; Z79.52 Long term (current) use of systemic steroids; Z79.899 Other long term (current) drug therapy; Z88.2 Allergy status to sulfonamides
CPT/HCPCS: 71046; 74177; 80048; 81003; 82550; 82553; 84484; 85025; 93005; 96361; 96365; 96374; 96375; 99285; Q9967

== ENCOUNTER 2021-07-08 14:39 | Observation (INO) | payer MEDICARE, MEDICAID, SELFPAY ==
[2021-07-08] VITALS (13 sets, daily range): BP systolic 133–201; BP diastolic 60–143; PULSE 74–96; RESP 16–22; TEMP 36.6–36.8; O2SAT 95–100; BMI 27.4; BMI 29.2
--- NOTE | 2021-07-08 14:43 | PC.NURSE ---
Patient ambulatory to restroom without complications
--- NOTE | 2021-07-08 14:47 | PC.NURSE ---
pt back to ED room 9 from restroom; ambulatory without complications. JOAQUIN Pryor at . Call light within reach
[2021-07-08 14:54] LABS: Microscopic, Urine URINE MICROSCOPIC (MICROSCOPIC)
--- NOTE | 2021-07-08 14:56 | PC.NURSE ---
ED MD at
[2021-07-08 15:01] LABS: Appearance,Urine CLEAR (Clear); Bilirubin,Urine Negative (Negative); Blood, Urine TRACE-I (Negative); Color,Urine YELLOW (Yellow); Glucose,Urine (UA) Negative (Negative); Ketones,Urine Negative (Negative); Leukocyte Esterase,Urine Negative (Negative); Nitrate,Urine Negative (Negative); Protein,Urine 2+ (Negative); Urobilinogen,Urine 0.2 EU/dl (0.2)
--- NOTE | 2021-07-08 15:02 | HMH.EDGENADL ---
ED Disposition Clinical Impression: Nausea and vomiting Disposition: Admitted As Inpatient Condition on Discharge: Fair Instructions: DI for Diarrhea and Traveler's Diarrhea -- Adult, DI for Diarrhea and Traveler's Diarrhea -- Child, DI for Nausea -- Adult, DI for Nausea -- Child Referrals: Matt Malave MD [Primary Care Provider] - - Critical Care Critical Care Time: No Attestation: On 07/08/21, the high probability of a clinically significant, sudden or life threatening deterioration of the following system(s) required my full and direct attention, intervention and personal management. The time I documented below is in addition to time spent performing reported procedures but includes the following listed in this critical care notation. Medical Decision Making - Davide Inquiry Pt receiving controlled substance: No Vital Signs: 07/08/21 14:40 Temperature 98.2 F Temperature Source Oral Pulse Rate [Radial] 90 Respiratory Rate 16 Blood Pressure [Right Arm] 200/94 H Blood Pressure Mean [Right Arm] 129 Blood Pressure Position [Right Arm] Sitting 02 Sat by Pulse Oximetry 98 Oxygen Delivery Method Room Air - Lab Data Lab Results 07/08/21 14:45: Urine Color Yellow, Urine Appearance Clear, Urine pH 6.0, Ur Specific [place] 1.010, Urine Protein 2+, Urine Glucose (UA) Negative, Urine Ketones Negative, Urine Blood Trace-i, Urine Nitrate Negative, Urine Bilirubin Negative, Urine Urobilinogen 0.2, Ur Leukocyte Esterase Negative, Urine WBC Occasional, Ur Squamous Epith Cells Occasional, Urine Bacteria Trace 07/08/21 15:05: WBC 10.4, RBC 4.88, Hgb 15.1, Hct 45.0, MCV 92.2, MCH 31.0, MCHC 33.6, RDW 14.3, Plt Count 352, MPV 8.6, Neut % (Auto) 68.7, Lymph % (Auto) 22.3, [place]omew % (Auto) 5.1, Eos % (Auto) 1.3, Baso % (Auto) 2.6 H, Neut # (Auto) 7.1, Lymph # (Auto) 2.3, Bartholomew # (Auto) 0.5, Eos # (Auto) 0.1, Baso # (Auto) 0.3 H 07/08/21 15:05: Sodium 131 L, Potassium 4.7, Chloride 98, Carbon Dioxide 27, Anion Gap 10.7, BUN 16, Creatinine 1.10 H, Estimated Creat Clear 58, Estimated GFR 49 L, Est GFR ( Amer) 60, Glucose 115 H, Calcium 8.8, Phosphorus 4.6 H, Magnesium 1.4 L, Total Bilirubin 0.8, AST 33, ALT 21, Alkaline Phosphatase 159 H, Total Protein 7.3, Albumin 4.1, Globulin 3.2, Albumin/Globulin Ratio 1.3, Lipase 67 Result diagrams: 07/08/21 15:05 07/08/21 15:05 Orders (Tests/Meds): ED MEDICATIONS Generic Name Dose Route Start Last Admin Trade Name Freq PRN Reason Stop Dose Admin Lactated Ringer's 500 mls @ 999 mls/hr 07/08/21 15:15 07/08/21 15:09 Lactated Ringer's 1000 Ml Bag IV 07/08/21 15:45 Not Given .Q31M CARLO Lactated Ringer's 1,000 mls @ 999 mls/hr 07/08/21 15:15 07/08/21 15:19 Lactated Ringer's 1000 Ml Bag IV 07/08/21 16:15 999 mls/hr .Q1H1M CARLO Administration Magnesium Oxide 400 mg 07/08/21 15:45 07/08/21 16:09 Magnesium Oxide 400mg Tablet PO 08/07/21 15:44 400 mg DAILY CARLO Administration Discontinued Medications Generic Name Dose Route Start Last Admin Trade Name Freq PRN Reason Stop Dose Admin Belladonna Alkaloids 60 ml 07/08/21 15:01 07/08/21 15:18 Gi Cocktail 60ml Udc PO 07/08/21 15:02 60 ml ONCE ONE Administration Metoclopramide HCl 10 mg 07/08/21 15:01 07/08/21 15:18 Metoclopramide Hcl 10mg/2ml Vial IVP 07/08/21 15:02 10 mg ONCE ONE Administration Promethazine HCl 12.5 mg 07/08/21 16:06 07/08/21 16:09 Promethazine Hcl 25mg/Ml 1ml Vial IV 07/08/21 16:07 12.5 mg ONCE ONE Administration Sodium Chloride 25 ml 07/08/21 16:06 07/08/21 16:09 Sodium Chloride 0.9% 25ml Bag IV 07/08/21 16:07 25 ml ONCE ONE Administration ORDERS Category Date Time Status Rapid PCR Covid and Flu A/B Stat Lab 07/08/21 16:00 Received EKG Request [ECG Request by /Dawit] Stat Y 07/08/21 15:02 Ordered Medical Decision Narrative: Differential diagnosis includes but is not limited to gastritis, gastric reflux, pancreatitis. Hemodynamic
[2021-07-08 15:18] LABS: Bacteria,Urine Trace /lpf; Squamous Epithelial Cell,Urine Occasional #/hpf (0-5); WBC,Urine Occasional #/hpf (0-3)
[2021-07-08 15:18] LABS: Chloride 98 mmol/L (98-107)
[2021-07-08 15:19] LABS: Potassium 4.7 mmoL/L (3.5-5.1); Sodium 131 mmol/L (136-145)
[2021-07-08 15:21] LABS: Alanine Aminotransferase 21 U/L (12-78); Alkaline Phosphatase 159 U/L (38-126); Aspartate Amino Transferase 33 U/L (14-36); Bilirubin,Total 0.8 mg/dl (0.2-1.3); Blood Urea Nitrogen 16 mg/dl (7-17); Creatinine Clearance Estimated 58 mL/min (50-200); Estimated Glomerular Filt Rate 49 ml/min (>60); GFR (African American) 60 ML/MIN (>60); Lipase 67 U/L (23-300); Phosphorous 4.6 mg/dl (2.5-4.5)
[2021-07-08 15:22] LABS: Albumin Level 4.1 g/dl (3.5-5.0); Albumin/Globulin Ratio 1.3 (1.1-1.8); Calcium 8.8 mg/dl (8.4-10.2); Globulin 3.2 g/dL (1.3-3.2); Glucose 115 mg/dl (74-100); Magnesium 1.4 mg/dl (1.6-2.3); Total Protein,Serum 7.3 g/dl (6.3-8.2)
[2021-07-08 15:24] LABS: Basophils # 0.3 K/mm3 (0-0.2); Basophils % 2.6 % (0.1-2.0); Eosinophils # 0.1 K/mm3 (0.0-0.4); Eosinophils % 1.3 % (0.1-12.0); Hemoglobin 15.1 g/dL (12.2-16.2); Lymphocytes # 2.3 K/mm3 (0.7-4.5); Lymphocytes % 22.3 % (10-50); Mean Corpuscular HGB Conc 33.6 g/dL (31.8-35.4); Mean Corpuscular Volume 92.2 fl (81-99); Mean Platelet Volume 8.6 fl (7.4-10.4); Monocytes # 0.5 K/mm3 (0.1-1.0); Monocytes % 5.1 % (1.7-9.3); Neutrophils # 7.1 K/mm3 (1.8-7.8); Neutrophils % 68.7 % (37.0-80.0); Platelet Count 352 K/mm3 (142-424); Red Blood Count 4.88 M/mm3 (4.20-5.40); Red Cell Distribution Width 14.3 % (11.5-17.5); White Blood Count 10.4 K/mm3 (4.8-10.8)
[2021-07-08 15:45] LABS: Anion Gap 10.7 mEq/L (5-15); Carbon Dioxide 27 mmol/L (22.0-30.0)
--- NOTE | 2021-07-08 15:58 | PC.NURSE ---
ED MD at for update on POC
[2021-07-08 16:16] LABS: Coronavirus 19, PCR Not Detected (NotDetected); Influenza A, PCR Not Detected (NotDetected); Influenza B, PCR Not Detected (NotDetected)
--- NOTE | 2021-07-08 16:19 | PC.NURSE ---
EKG completed by Yoav and given to Dr. Hernández at 16:17
--- NOTE | 2021-07-08 17:31 | HMH.HP ---
*Admission Date: 07/08/21 *Chief complaint: nausea and vomiting *History of present illness: 70-year-old female presents to ed with c/o of vomiting. Patient states that she has had 1 week of daily nausea and vomiting and zofran not helping. Patient states she was seen in the ED here at [facility] on and was discharged with Zofran which she has been taking without significant improvement with her symptoms. Patient states she is unable to eat or take medication. patient was admitted for iv fluids, lab monitoring and anti nausea meds as needed. [facility] History I have reviewed the patient's past medical history: Yes Medical History: Reports:: Anxiety, Arrhythmia, Atherosclerotic Heart Disease, Atrial Fibrillation, Cancer, Congestive Heart Failure, Depression, Diabetes Mellitus Type 2, Renal Insufficiency Denies:: Diabetes Mellitus Type 1, MRSA *Have you ever received a pneumonia vaccine?: Yes *Have you received a flu vaccine this season?: No Other Medical History: Reports: Arthritis Other Surgeries: Yes: Hysterectomy-Total Amputation: No Fractures: No - *Social History Smoking Status: Current every day smoker Tobacco Type: cigarettes # Packs/Day (cigarettes): 1 Alcohol Intake: never *Occupational Status:: other Housing: apartment Household Members: none *Travel in the last 8 weeks: None - Psychiatric History Pschychiatric History:: Reports:: Anxiety, Depression Family Hx:: Unable to obtain Review of Systems - Review of Systems Review of systems:: pertinent systems reviewed and negative unless documented below - Constitutional Denies body ache(s), Denies fatigue, Denies fever(s) - Eyes Denies change in vision - ENT Denies bleeding gums - *Cardiovascular Denies chest pain with activity - *Respiratory Denies chest congestion - *Gastrointestinal Reports nausea, Reports vomiting, Denies abdominal pain - *Genitourinary Denies abnormal vaginal bleeding, Denies urinary incontinence, Denies urinary urgency - *Musculoskeletal Denies joint pain - Integumentary/Breasts Denies bleeding lesions - *Neurologic Denies dizziness - Psychiatric Denies anxiety - Endocrine Denies excessive sweating - Hematologic/Lymphatic Denies enlarged lymph nodes - Allergic/Immunologic Denies itchy eyes Meds Home Medications Medication Instructions Recorded Confirmed Type Levothyroxine Sodium 1 tab PO DAILY 05/18/17 07/08/21 History [Levothyroxine 50mcg (0.05mg) Tab] PARoxetine HCL [Paroxetine HCl] 1 tab PO DIRECTED 05/18/17 07/08/21 History Donepezil HCl [Aricept 10mg 10 mg PO DAILY 06/03/17 07/08/21 History tablet] atorvastatin 80 mg tablet 80 mg PO DAILY tab 03/27/21 07/08/21 History montelukast 10 mg tablet 10 mg PO DAILY tab 03/27/21 07/08/21 History pantoprazole 40 mg tablet,delayed 40 mg PO DAILY tab 03/27/21 07/08/21 History release quetiapine 50 mg tablet 50 mg PO HS #90 tab 04/27/21 07/08/21 Rx diltiazem HCl 120 mg tablet 120 mg PO TID #90 tab 05/11/21 07/08/21 Rx hydrocortisone-pramoxine 1 %-1 % 1 applic TN BID PRN #30 g 06/18/21 07/08/21 Rx rectal cream Apixaban [Eliquis] 5 mg PO BID 07/05/21 07/08/21 History Azithromycin 500 mg PO DAILY 07/05/21 07/08/21 History Gabapentin 300 mg PO TID 07/05/21 07/08/21 History Ipratropium/Albuterol Sulfate 3 ml INHALATION QID 07/05/21 07/08/21 History [Duoneb 3mL neb] Ondansetron [Zofran 4mg ODT] 4 mg PO BIDP PRN #10 tab 07/05/21 07/08/21 Rx clonazePAM [Clonazepam] 0.5 mg PO DAILY 07/05/21 07/08/21 History predniSONE [Deltasone 20mg See Rx Instructions .ROUTE .COMPLEX 07/05/21 07/08/21 History tablet] Allergies Allergy/AdvReac Type Severity Reaction Status Date / Time Sulfa (Sulfonamide Allergy Intermediate I-HIVES Verified 06/18/21 11:18 Antibiotics) [SULFA (SULFONAMIDE ANTIBIOTICS)] Exam Vital signs and Labs for Last 24 Hours: Temp Pulse Resp BP Pulse Ox 98.2 F 90
--- NOTE | 2021-07-08 17:32 | PC.NURSE ---
REPORT CALLED TO FLOOR
[2021-07-09] VITALS: BP 142/79; PULSE 84; PULSE 90; RESP 16; TEMP 36.7; O2SAT 93
[2021-07-09 04:00] VITALS: PULSE 90
[2021-07-09 05:09] VITALS: BP 169/85; PULSE 94; RESP 18; TEMP 36.5; O2SAT 93
[2021-07-09 07:03] LABS: Chloride 104 mmol/L (98-107)
[2021-07-09 07:04] LABS: Basophils # 0.1 K/mm3 (0-0.2); Eosinophils # 0.2 K/mm3 (0.0-0.4); Eosinophils % 2.3 % (0.1-12.0); Hematocrit 42.8 % (37.0-47.0); Hemoglobin 14.1 g/dL (12.2-16.2); Lymphocytes # 2.1 K/mm3 (0.7-4.5); Lymphocytes % 25.1 % (10-50); Mean Corpuscular HGB Conc 32.8 g/dL (31.8-35.4); Mean Corpuscular Hemoglobin 30.7 pg (27.0-31.2); Mean Corpuscular Volume 93.5 fl (81-99); Mean Platelet Volume 8.9 fl (7.4-10.4); Monocytes # 0.4 K/mm3 (0.1-1.0); Monocytes % 4.3 % (1.7-9.3); Neutrophils # 5.5 K/mm3 (1.8-7.8); Neutrophils % 67.2 % (37.0-80.0); Platelet Count 320 K/mm3 (142-424); Potassium 4.1 mmoL/L (3.5-5.1); Red Blood Count 4.58 M/mm3 (4.20-5.40); Red Cell Distribution Width 14.6 % (11.5-17.5); Sodium 135 mmol/L (136-145); White Blood Count 8.3 K/mm3 (4.8-10.8)
--- NOTE | 2021-07-09 07:04 | PC.NURSE ---
No acute episodes during my shift. Pt has c/o of nausea during my shift, but no vomiting. Pt also denies diarrhea. Medicated per MAR for nausea. IV infusing per order. Call light in reach.
[2021-07-09 07:07] LABS: Anion Gap 8.1 mEq/L (5-15); Blood Urea Nitrogen 14 mg/dl (7-17); Calcium 8.5 mg/dl (8.4-10.2); Carbon Dioxide 27 mmol/L (22.0-30.0); Creatinine Clearance Estimated 70 mL/min (50-200); Estimated Glomerular Filt Rate 55 ml/min (>60); GFR (African American) 67 ML/MIN (>60); Glucose 82 mg/dl (74-100)
--- NOTE | 2021-07-09 07:32 | HMH.PHAVTE ---
[facility] Pharmacy VTE Monitoring - Patient Demographics Admission date: 07/09/21 Report Date: 07/09/21 Time: 07:32 Allergies/Adverse Reactions: Patient Allergies Sulfa (Sulfonamide Antibiotics) [SULFA (SULFONAMIDE ANTIBIOTICS)] Allergy (Intermediate, Verified 06/18/21 11:18) I-HIVES Height: 1.68 m Weight: 82.355 kg Patient Problems: Current Active Problems Nausea and vomiting (Acute) - VTE Risk Labs: VTE Related Lab Results Hgb 14.1 g/dL (12.2-16.2) 07/09/21 06:44 Hct 42.8 % (37.0-47.0) 07/09/21 06:44 Plt Count 320 K/mm3 (142-424) 07/09/21 06:44 BUN 14 mg/dl (7-17) 07/09/21 06:44 Creatinine 1.00 mg/dl (0.52-1.04) 07/09/21 06:44 Estimated Creat Clear 70 mL/min (50-200) 07/09/21 06:44 Was VTE Risk Assessment Performed: Yes VTE Score: 10 VTE Risk Level: Moderate Risk Clinical Trial Participant: No - Prophylaxis VTE Prophylaxis Ordered?: Yes Types of VTE Prophylaxis: TEDS Knee High
[2021-07-09 08:00] VITALS: BP 153/69; PULSE 109; PULSE 110; RESP 16; TEMP 37.3; O2SAT 92
--- NOTE | 2021-07-09 09:06 | HMH.DCSUM ---
General - General Admission date:: 07/08/21 Discharge date: 07/09/21 HPI HPI: 70-year-old female presents to ed with c/o of vomiting. Patient states that she has had 1 week of daily nausea and vomiting and zofran not helping. Patient states she was seen in the ED here at [facility] on and was discharged with Zofran which she has been taking without significant improvement with her symptoms. Patient states she is unable to eat or take medication. patient was admitted for iv fluids, lab monitoring and anti nausea meds as needed. Hospital Course Hospital Course: Abnormal Lab Results 07/08/21 15:05: Baso % (Auto) 2.6 H, Baso # (Auto) 0.3 H 07/08/21 15:05: Sodium 131 L, Creatinine 1.10 H, Estimated GFR 49 L, Glucose 115 H, Phosphorus 4.6 H, Magnesium 1.4 L, Alkaline Phosphatase 159 H 07/09/21 06:44: Sodium 135 L, Estimated GFR 55 L Discharge Plan (1) Nausea and vomiting-CT on shows:Multiple enhancing lesions throughout the liver favoring focal nodular hyperplasia or flash filling of hemangiomas. No acute inflammatory process. Pt states she is feeling much better and was able to eat a regular diet and keep it down. Pt will need to follow up with surgery out pt for a egd and colonoscopy Objective Vital signs: Temp Pulse Resp BP Pulse Ox 99.1 F 109 H 16 153/69 H 92 L 07/09/21 08:00 07/09/21 08:00 07/09/21 08:00 07/09/21 08:00 07/09/21 08:00 no acute distress - *Routine HEENT Exam Head: Present: normocephalic Eye: Present: PERRL ENT: Present: mucous membranes moist - *Routine Neck Exam Present: supple - *Routine Respiratory Exam Present: CTA bilaterally - *Routine Cardiovascular Exam Present: RRR - *Routine Abdominal Exam Present: soft, normoactive bowel sounds, tenderness - *Routine Extremities Exam Present: normal capillary refill. Absent: cyanosis, clubbing, edema - *Routine Skin Exam Present: warm. Absent: rash - *Routine Neurological Exam Present: alert, oriented X3 Results Labs on day of discharge: Labs from last 24 hours 07/09/21 07/09/21 07/08/21 06:44 06:44 16:00 WBC 8.3 RBC 4.58 Hgb 14.1 Hct 42.8 MCV 93.5 MCH 30.7 MCHC 32.8 RDW 14.6 Plt Count 320 MPV 8.9 Neut % (Auto) 67.2 Lymph % (Auto) 25.1 [place] % (Auto) 4.3 Eos % (Auto) 2.3 Baso % (Auto) 1.0 Neut # (Auto) 5.5 Lymph # (Auto) 2.1 [place] # (Auto) 0.4 Eos # (Auto) 0.2 Baso # (Auto) 0.1 Sodium 135 L Potassium 4.1 Chloride 104 Carbon Dioxide 27 Anion Gap 8.1 BUN 14 Creatinine 1.00 Estimated Creat Clear 70 Estimated GFR 55 L Est GFR ( Amer) 67 Glucose 82 D Calcium 8.5 Phosphorus Magnesium Total Bilirubin AST ALT Alkaline Phosphatase Total Protein Albumin Globulin Albumin/Globulin Ratio Lipase Urine Color Urine Appearance Urine pH Ur Specific [place] Urine Protein Urine Glucose (UA) Urine Ketones Urine Blood Urine Nitrate Urine Bilirubin Urine Urobilinogen Ur Leukocyte Esterase Urine WBC Ur Squamous Epith Cells Urine Bacteria SARS-CoV-2 (PCR) Not detected Influenza A Untype (PCR) Not detected Influenza Type B (PCR) Not detected 07/08/21 07/08/21 07/08/21 15:05 15:05 14:45 WBC 10.4 RBC 4.88 Hgb 15.1 Hct 45.0 MCV 92.2 MCH 31.0 MCHC 33.6 RDW 14.3 Plt Count 352 MPV 8.6 Neut % (Auto) 68.7 Lymph % (Auto) 22.3 [place] % (Auto) 5.1 Eos % (Auto) 1.3 Baso % (Auto) 2.6 H Neut # (Auto) 7.1 Lymph # (Auto) 2.3 [place] # (Auto) 0.5 Eos # (Auto) 0.1 Baso # (Auto) 0.3 H Sodium 131 L Potassium 4.7 Chloride 98 Carbon Dioxide 27 Anion Gap 10.7 BUN 16 Creatinine 1.10 H Estimated Creat Clear 58 Estimated GFR 49 L Est GFR ( Amer) 60 Glucose 115 H Calcium 8.8
--- NOTE | 2021-07-09 09:58 | HMH.PHAINT ---
I spoke with the patient today about their medication list. Went over the new medication that was being sent in for the patient, reviewed the medications that she was to continue on and stop taking at home. When we spoke, she did not have any questions or concerns. Patient was provided a copy of the medication list.
--- NOTE | 2021-07-10 14:48 | CARE MANAGER ---
Spoke with patient's son Johnny and he states that patient is doing well and has no needs at this time.
== END 2021-07-09 11:15 | disposition home or self-care (01) ==
LOC: ER 16:44 → 2ND 20:19
PROVIDERS: Internal Medicine Adolescent Medicine; Admitting Provider Emergency Medicine; Emergency Provider Student in an Organized Health Care Education/Training Program; PCP Family Medicine; Visit Provider Family Medicine
DX: R11.2 Nausea with vomiting, unspecified (principal); Z20.822 Contact with and (suspected) exposure to COVID-19; Z79.899 Other long term (current) drug therapy; Z88.2 Allergy status to sulfonamides; Z79.01 Long term (current) use of anticoagulants; I25.10 Atherosclerotic heart disease of native coronary artery without angina pectoris; I48.91 Unspecified atrial fibrillation; E11.9 Type 2 diabetes mellitus without complications; I50.9 Heart failure, unspecified; F17.210 Nicotine dependence, cigarettes, uncomplicated
CPT/HCPCS: G0378; 36415; 80048; 80053; 81001; 83690; 83735; 84100; 85025; 96365; 96375; 99285; C9803; J2405; U0003; U0005

== ENCOUNTER 2021-07-10 10:13 | Emergency (ER) | payer MEDICARE, MEDICAID, SELFPAY ==
[2021-07-10 10:14] VITALS: BP 154/94; PULSE 102; RESP 18; TEMP 37.2; O2SAT 94; BMI 29.0
--- NOTE | 2021-07-10 10:20 | HMH.EDGENADL ---
ED Disposition Clinical Impression: Rectal bleeding Hemorrhoids Qualifiers: Hemorrhoid type: unspecified Qualified Code(s): K64.9 - Unspecified hemorrhoids Disposition: Home, Self-Care Condition on Discharge: Good Instructions: DI for Hemorrhoids, Gastrointestinal Bleeding Additional Instructions: You have been evaluated for rectal bleeding. This is likely due to hemorrhoids. Please continue taking Protonix as prescribed by your primary care doctor. Eat a bland diet. Avoid red foods. Follow-up with Dr. Malave in clinic. Return to the emergency department at once for any new or worsening symptoms. Referrals: Matt Malave MD [Primary Care Provider] - Time of Disposition: 11:18 - Critical Care Critical Care Time: No Attestation: On 07/10/21, the high probability of a clinically significant, sudden or life threatening deterioration of the following system(s) required my full and direct attention, intervention and personal management. The time I documented below is in addition to time spent performing reported procedures but includes the following listed in this critical care notation. Medical Decision Making - Medical Records Medical records reviewed: Yes: I reviewed the patient's medical records. - Davide Inquiry Pt receiving controlled substance: No Vital Signs: 07/10/21 10:14 07/10/21 10:33 07/10/21 11:00 Temperature 98.9 F Temperature Source Oral Pulse Rate 96 H 91 H Pulse Rate [Right Radial] 102 H Respiratory Rate 18 19 20 Blood Pressure 168/90 H 160/85 H Blood Pressure [Right Arm] 154/94 H Blood Pressure Mean [Right Arm] 114 Blood Pressure Source [Right Arm] Automatic Cuff Blood Pressure Position [Right Arm] Sitting 02 Sat by Pulse Oximetry 94 L 92 L 92 L Oxygen Delivery Method Room Air 07/10/21 11:31 Temperature Temperature Source Pulse Rate 89 Pulse Rate [Right Radial] Respiratory Rate 20 Blood Pressure 147/79 H Blood Pressure [Right Arm] Blood Pressure Mean [Right Arm] Blood Pressure Source [Right Arm] Blood Pressure Position [Right Arm] 02 Sat by Pulse Oximetry 90 L Oxygen Delivery Method - Lab Data Lab Results 07/10/21 10:15: WBC 9.0, RBC 5.21, Hgb 15.7, Hct 49.7 H, MCV 95.3, MCH 30.2, MCHC 31.7 L, RDW 14.5, Plt Count 350, MPV 8.5, Neut % (Auto) 72.3, Lymph % (Auto) 21.6, [place] % (Auto) 3.7, Eos % (Auto) 1.7, Baso % (Auto) 0.8, Neut # (Auto) 6.5, Lymph # (Auto) 1.9, [place] # (Auto) 0.3, Eos # (Auto) 0.2, Baso # (Auto) 0.1 07/10/21 10:15: Sodium 137, Potassium 4.3, Chloride 104, Carbon Dioxide 32 H, Anion Gap 5.3, BUN 12, Creatinine 1.00, Estimated Creat Clear 69, Estimated GFR 55 L, Est GFR ( Amer) 67, Glucose 109 H, Calcium 9.0, Total Bilirubin 0.7, AST 28, ALT 20, Alkaline Phosphatase 119, Total Protein 6.8, Albumin 3.8, Globulin 3.0, Albumin/Globulin Ratio 1.3 07/10/21 10:34: Urine Color Yellow, Urine Appearance Clear, Urine pH 6.0, Ur Specific [place] 1.010, Urine Protein 1+, Urine Glucose (UA) Negative, Urine Ketones Negative, Urine Blood 1+, Urine Nitrate Negative, Urine Bilirubin Negative, Urine Urobilinogen 0.2, Ur Leukocyte Esterase Negative, Urine RBC 5-10, Urine WBC 3-5, Ur Squamous Epith Cells 5-10, Urine Bacteria None 07/10/21 10:39: Lactate 1.1 07/10/21 10:45: Stool Occult Blood Positive A Result diagrams: 07/10/21 10:15 07/10/21 10:15 Medical Decision Narrative: In summary this is a 70-year-old female presenting to the emergency department with hematuria. Patient clinically stable on arrival. Vital signs within normal limits. Will obtain CBC, CMP, urinalysis, stool occult blood. Rectal exam shows small amount of mucus with carlos enrique red blood. Concern for lower GI bleed, hemorrhoidal bleed. Is on Eliquis, also on Protonix Laboratory results reassuring. Robust H&H at 15 and 49. Glucose and electrolytes within normal limits. There is no elevation in BUN to suggest brisk bleed. Urinalysis shows small blood, no leukoesterase or nitr
[2021-07-10 10:33] VITALS: BP 168/90; PULSE 96; RESP 19; O2SAT 92
--- NOTE | 2021-07-10 10:36 | PC.NURSE ---
Urine sent to lab
[2021-07-10 10:37] LABS: Chloride 104 mmol/L (98-107); Potassium 4.3 mmoL/L (3.5-5.1); Sodium 137 mmol/L (136-145)
[2021-07-10 10:38] LABS: Microscopic, Urine URINE MICROSCOPIC (MICROSCOPIC)
[2021-07-10 10:40] LABS: Alanine Aminotransferase 20 U/L (12-78); Albumin Level 3.8 g/dl (3.5-5.0); Albumin/Globulin Ratio 1.3 (1.1-1.8); Alkaline Phosphatase 119 U/L (38-126); Anion Gap 5.3 mEq/L (5-15); Aspartate Amino Transferase 28 U/L (14-36); Basophils # 0.1 K/mm3 (0-0.2); Basophils % 0.8 % (0.1-2.0); Bilirubin,Total 0.7 mg/dl (0.2-1.3); Blood Urea Nitrogen 12 mg/dl (7-17); Carbon Dioxide 32 mmol/L (22.0-30.0); Creatinine Clearance Estimated 69 mL/min (50-200); Eosinophils # 0.2 K/mm3 (0.0-0.4); Eosinophils % 1.7 % (0.1-12.0); Estimated Glomerular Filt Rate 55 ml/min (>60); GFR (African American) 67 ML/MIN (>60); Hematocrit 49.7 % (37.0-47.0); Hemoglobin 15.7 g/dL (12.2-16.2); Lymphocytes # 1.9 K/mm3 (0.7-4.5); Lymphocytes % 21.6 % (10-50); Mean Corpuscular HGB Conc 31.7 g/dL (31.8-35.4); Mean Corpuscular Hemoglobin 30.2 pg (27.0-31.2); Mean Corpuscular Volume 95.3 fl (81-99); Mean Platelet Volume 8.5 fl (7.4-10.4); Monocytes # 0.3 K/mm3 (0.1-1.0); Monocytes % 3.7 % (1.7-9.3); Neutrophils # 6.5 K/mm3 (1.8-7.8); Neutrophils % 72.3 % (37.0-80.0); Platelet Count 350 K/mm3 (142-424); Red Blood Count 5.21 M/mm3 (4.20-5.40); Red Cell Distribution Width 14.5 % (11.5-17.5); Total Protein,Serum 6.8 g/dl (6.3-8.2)
[2021-07-10 10:41] LABS: Glucose 109 mg/dl (74-100)
[2021-07-10 10:43] LABS: Appearance,Urine CLEAR (Clear); Bilirubin,Urine Negative (Negative); Blood, Urine 1+ (Negative); Color,Urine YELLOW (Yellow); Glucose,Urine (UA) Negative (Negative); Ketones,Urine Negative (Negative); Leukocyte Esterase,Urine Negative (Negative); Nitrate,Urine Negative (Negative); Protein,Urine 1+ (Negative); Urobilinogen,Urine 0.2 EU/dl (0.2)
--- NOTE | 2021-07-10 10:47 | PC.NURSE ---
Occult stool sample sent to lab
[2021-07-10 10:51] LABS: Occult Blood,Stool Positive (Negative)
[2021-07-10 10:59] LABS: Lactic Acid 1.1 mmol/L (0.7-2.1)
[2021-07-10 11:00] VITALS: BP 160/85; PULSE 91; RESP 20; O2SAT 92
[2021-07-10 11:31] VITALS: BP 147/79; PULSE 89; RESP 20; O2SAT 90
[2021-07-10 12:51] VITALS: BP 142/80; PULSE 94; RESP 20; TEMP 36.8; O2SAT 94
== END 2021-07-10 12:52 | disposition home or self-care (01) ==
PROVIDERS: Emergency Provider Emergency Medicine; PCP Family Medicine
DX: K64.9 Unspecified hemorrhoids (principal); I48.0 Paroxysmal atrial fibrillation; F41.8 Other specified anxiety disorders; E11.9 Type 2 diabetes mellitus without complications; N28.9 Disorder of kidney and ureter, unspecified; I25.10 Atherosclerotic heart disease of native coronary artery without angina pectoris; F17.210 Nicotine dependence, cigarettes, uncomplicated
CPT/HCPCS: 80053; 81001; 82272; 83605; 85025; 99283; G0328

== ENCOUNTER 2021-07-17 14:09 | Emergency (ER) | payer MEDICARE, MEDICAID, SELFPAY ==
[2021-07-17 14:10] VITALS: BP 133/64; PULSE 94; RESP 20; TEMP 36.7; O2SAT 92; BMI 26.6
[2021-07-17 14:19] VITALS: BP 133/64; PULSE 73; O2SAT 93
--- NOTE | 2021-07-17 14:27 | HMH.EDGENADL ---
ED Disposition Clinical Impression: Nausea & vomiting Qualifiers: Vomiting type: unspecified Qualified Code(s): R11.2 - Nausea with vomiting, unspecified Disposition: Home, Self-Care Condition on Discharge: Good Instructions: Nausea and Vomiting-Adult Additional Instructions: follow up PCP tomorrow, return here for worse Prescriptions: Ondansetron [Zofran 4mg ODT] 4 mg PO TIDP PRN #15 tab PRN Reason: Nausea And Vomiting Transmission Status: Pending to Clinic Pharm[facility] Referrals: Matt Malave MD [Primary Care Provider] - - Critical Care Critical Care Time: No Attestation: On 07/17/21, the high probability of a clinically significant, sudden or life threatening deterioration of the following system(s) required my full and direct attention, intervention and personal management. The time I documented below is in addition to time spent performing reported procedures but includes the following listed in this critical care notation. Medical Decision Making - Medical Records Medical records reviewed: Yes: I reviewed the patient's medical records. - Davide Inquiry Pt receiving controlled substance: No Vital Signs: 07/17/21 14:10 07/17/21 14:19 07/17/21 14:31 Temperature 98.1 F Temperature Source Oral Pulse Rate 73 90 Pulse Rate [Left Radial] 94 H Respiratory Rate 20 Blood Pressure 133/64 126/54 L Blood Pressure [Right Arm] 133/64 Blood Pressure Mean [Right Arm] 87 Blood Pressure Source [Right Arm] Automatic Cuff Blood Pressure Position [Right Arm] Sitting 02 Sat by Pulse Oximetry 92 L 93 L 92 L Oxygen Delivery Method Room Air 07/17/21 15:11 07/17/21 15:31 Temperature Temperature Source Pulse Rate 87 91 H Pulse Rate [Left Radial] Respiratory Rate Blood Pressure 149/66 H 166/74 H Blood Pressure [Right Arm] Blood Pressure Mean [Right Arm] Blood Pressure Source [Right Arm] Blood Pressure Position [Right Arm] 02 Sat by Pulse Oximetry 95 94 L Oxygen Delivery Method - Lab Data Lab Results 07/17/21 14:48: WBC 11.8 H, RBC 4.41, Hgb 13.3, Hct 39.4, MCV 89.4, MCH 30.3, MCHC 33.8, RDW 13.5, Plt Count 287, MPV 8.9, Neut % (Auto) 74.2, Lymph % (Auto) 17.6, [place] % (Auto) 5.9, Eos % (Auto) 2.0, Baso % (Auto) 0.2, Neut # (Auto) 8.8 H, Lymph # (Auto) 2.1, [place] # (Auto) 0.7, Eos # (Auto) 0.2, Baso # (Auto) 0.0 07/17/21 14:48: Sodium 127 L, Potassium 4.0, Chloride 95 L, Carbon Dioxide 28, Anion Gap 8.0, BUN 11, Creatinine 0.90, Estimated Creat Clear 64, Estimated GFR 62, Est GFR ( Amer) 75, Glucose 158 H, Calcium 9.4, Total Bilirubin 0.8, AST 35, ALT 17, Alkaline Phosphatase 108, Troponin I < 0.01, Total Protein 6.0 L, Albumin 3.4 L, Globulin 2.6, Albumin/Globulin Ratio 1.3 07/17/21 15:19: Urine Color Yellow, Urine Appearance Clear, Urine pH 5.5, Ur Specific [place] >= 1.030, Urine Protein 2+, Urine Glucose (UA) Negative, Urine Ketones Negative, Urine Blood Trace-l, Urine Nitrate Negative, Urine Bilirubin Negative, Urine Urobilinogen 0.2, Ur Leukocyte Esterase Negative Result diagrams: 07/17/21 14:48 07/17/21 14:48 Orders (Tests/Meds): ED MEDICATIONS Discontinued Medications Generic Name Dose Route Start Last Admin Trade Name Freq PRN Reason Stop Dose Admin Metoclopramide HCl 10 mg 07/17/21 14:27 07/17/21 14:51 Metoclopramide Hcl 10mg/2ml Vial IVP 07/17/21 14:28 10 mg ONCE ONE Administration Ondansetron HCl 8 mg 07/17/21 14:26 07/17/21 14:50 Ondansetron 4mg/2ml Vial IV 07/17/21 14:27 8 mg ONCE ONE Administration ORDERS Category Date Time Status Troponin I Q3H Lab 07/17/21 17:45 Ordered Troponin I Q3H Lab 07/17/21 20:45 Ordered Urinalysis and Microscopic Stat Lab 07/17/21 15:19 Results ECG Request by /Dawit Stat Y 07/17/21 14:27 Ordered Medical Decision Narrative: 430pm reeval, vss, appears well, says she is ready to go General Adult HPI - General Stated complaint: vomiting Time Seen by Provider: 04
[2021-07-17 14:31] VITALS: BP 126/54; PULSE 90; O2SAT 92
[2021-07-17 14:58] LABS: Basophils % 0.2 % (0.1-2.0); Eosinophils # 0.2 K/mm3 (0.0-0.4); Hematocrit 39.4 % (37.0-47.0); Hemoglobin 13.3 g/dL (12.2-16.2); Lymphocytes # 2.1 K/mm3 (0.7-4.5); Lymphocytes % 17.6 % (10-50); Mean Corpuscular HGB Conc 33.8 g/dL (31.8-35.4); Mean Corpuscular Hemoglobin 30.3 pg (27.0-31.2); Mean Corpuscular Volume 89.4 fl (81-99); Mean Platelet Volume 8.9 fl (7.4-10.4); Monocytes # 0.7 K/mm3 (0.1-1.0); Monocytes % 5.9 % (1.7-9.3); Neutrophils # 8.8 K/mm3 (1.8-7.8); Neutrophils % 74.2 % (37.0-80.0); Platelet Count 287 K/mm3 (142-424); Red Blood Count 4.41 M/mm3 (4.20-5.40); Red Cell Distribution Width 13.5 % (11.5-17.5); White Blood Count 11.8 K/mm3 (4.8-10.8)
--- NOTE | 2021-07-17 14:58 | PC.NURSE ---
pt up to restroom
[2021-07-17 15:06] LABS: Chloride 95 mmol/L (98-107); Sodium 127 mmol/L (136-145)
--- NOTE | 2021-07-17 15:07 | ECG_ITS ---
APPROVED REPORT Exam: Resting ECG HR:81 bpm ECG Measurements Heart Rate 81 AXES QRSd 80 QRS 56 QT 352 T 69 QTc 389 Conclusion ATRIAL FIBRILLATION ABNORMAL RHYTHM ECG UNCONFIRMED REPORT Electronically signed by : Dashawn Cedillo MD 07/19/2021 08:03:59
[2021-07-17 15:08] LABS: Blood Urea Nitrogen 11 mg/dl (7-17); Creatinine Clearance Estimated 64 mL/min (50-200); Estimated Glomerular Filt Rate 62 ml/min (>60); GFR (African American) 75 ML/MIN (>60)
[2021-07-17 15:09] LABS: Alanine Aminotransferase 17 U/L (12-78); Albumin Level 3.4 g/dl (3.5-5.0); Albumin/Globulin Ratio 1.3 (1.1-1.8); Alkaline Phosphatase 108 U/L (38-126); Aspartate Amino Transferase 35 U/L (14-36); Bilirubin,Total 0.8 mg/dl (0.2-1.3); Calcium 9.4 mg/dl (8.4-10.2); Carbon Dioxide 28 mmol/L (22.0-30.0); Globulin 2.6 g/dL (1.3-3.2); Glucose 158 mg/dl (74-100)
[2021-07-17 15:11] VITALS: BP 149/66; PULSE 87; O2SAT 95
[2021-07-17 15:22] LABS: Microscopic, Urine URINE MICROSCOPIC (MICROSCOPIC)
[2021-07-17 15:31] VITALS: BP 166/74; PULSE 91; O2SAT 94
[2021-07-17 15:46] LABS: Appearance,Urine CLEAR (Clear); Bilirubin,Urine Negative (Negative); Blood, Urine TRACE-L (Negative); Color,Urine YELLOW (Yellow); Glucose,Urine (UA) Negative (Negative); Ketones,Urine Negative (Negative); Leukocyte Esterase,Urine Negative (Negative); Nitrate,Urine Negative (Negative); PH,Urine 5.5 (5.0-8.5); Protein,Urine 2+ (Negative); Specific Gravity, Urine >= 1.030 (1.005-1.030); Urobilinogen,Urine 0.2 EU/dl (0.2)
[2021-07-17 15:51] LABS: Troponin I < 0.01 ng/ml (0.00-0.034)
--- NOTE | 2021-07-17 15:59 | PC.NURSE ---
checked on pt for any needs.. none needed
--- NOTE | 2021-07-17 16:10 | PC.NURSE ---
pt sitting up on side of bed, requesting NAVID Oliver MD states okay for pt to drink. will continue to monitor.
[2021-07-17 16:33] LABS: Bacteria,Urine 1+ /lpf; RBC,Urine Occasional #/hpf (0-3)
[2021-07-17 16:38] VITALS: BP 159/69; PULSE 90; RESP 20; TEMP 36.7; O2SAT 94
== END 2021-07-17 16:39 | disposition home or self-care (01) ==
PROVIDERS: Emergency Provider Emergency Medicine; PCP Family Medicine
DX: R11.2 Nausea with vomiting, unspecified (principal); I50.9 Heart failure, unspecified; N28.9 Disorder of kidney and ureter, unspecified; I25.10 Atherosclerotic heart disease of native coronary artery without angina pectoris; I48.91 Unspecified atrial fibrillation; E11.9 Type 2 diabetes mellitus without complications; M19.90 Unspecified osteoarthritis, unspecified site; F32.A Depression, unspecified; F41.9 Anxiety disorder, unspecified; F17.210 Nicotine dependence, cigarettes, uncomplicated; Z79.52 Long term (current) use of systemic steroids; Z79.899 Other long term (current) drug therapy; Z88.2 Allergy status to sulfonamides
CPT/HCPCS: 80053; 81001; 84484; 85025; 93005; 96374; 96375; 99285; J2405

== ENCOUNTER 2021-08-03 19:09 | Emergency (ER) | payer MEDICARE, MEDICAID, SELFPAY ==
[2021-08-03] VITALS (8 sets, daily range): BP systolic 130–154; BP diastolic 58–99; PULSE 67–82; RESP 17–30; TEMP 36.9; O2SAT 95–99; BMI 27.4
--- NOTE | 2021-08-03 19:12 | ECG_ITS ---
APPROVED REPORT Exam: Resting ECG HR:76 bpm ECG Measurements Heart Rate 76 AXES QRSd 69 QRS 68 QT 360 T 69 QTc 391 Conclusion ATRIAL FIBRILLATION ABNORMAL RHYTHM ECG UNCONFIRMED REPORT Electronically signed by : Dashawn Cedillo MD 08/04/2021 07:52:00
--- NOTE | 2021-08-03 19:45 | XR_ITS ---
PROCEDURE INFORMATION: Exam: XR Chest Exam date and time: 08/03/21 07:56 PM Age: 70 years old Clinical indication: Shortness of breath; Prior surgery; Surgery type: Lobe removal PT thinks left side, HX of lung cancer; Additional info: Shortness of air TECHNIQUE: Imaging protocol: XR of the chest. Views: 2 views. COMPARISON: CR XR CHEST 2V 07/05/21 03:16 PM FINDINGS: Lungs: Right upper lobectomy. Hyperexpanded lungs without infiltrate. Pleural spaces: Unremarkable. No pleural effusion. No pneumothorax. Heart/Mediastinum: Unremarkable. No cardiomegaly. Bones/joints: Right thoracotomy. IMPRESSION: 1. Right thoracotomy. Right upper lobectomy. 2. Hyperexpanded lungs without infiltrate.
[2021-08-03 19:55] LABS: Coronavirus 19, PCR Not Detected (NotDetected); Influenza A, PCR Not Detected (NotDetected); Influenza B, PCR Not Detected (NotDetected)
--- NOTE | 2021-08-03 19:55 | PC.NURSE ---
RT at bedside
[2021-08-03 19:57] LABS: Basophils % 0.3 % (0.1-2.0); Chloride 96 mmol/L (98-107); Eosinophils # 0.1 K/mm3 (0.0-0.4); Eosinophils % 0.5 % (0.1-12.0); Hematocrit 43.7 % (37.0-47.0); Hemoglobin 14.6 g/dL (12.2-16.2); Lymphocytes # 0.8 K/mm3 (0.7-4.5); Lymphocytes % 6.1 % (10-50); Mean Corpuscular HGB Conc 33.4 g/dL (31.8-35.4); Mean Corpuscular Hemoglobin 31.2 pg (27.0-31.2); Mean Corpuscular Volume 93.4 fl (81-99); Mean Platelet Volume 9.3 fl (7.4-10.4); Monocytes # 0.4 K/mm3 (0.1-1.0); Monocytes % 3.2 % (1.7-9.3); Neutrophils # 11.3 K/mm3 (1.8-7.8); Neutrophils % 89.9 % (37.0-80.0); Platelet Count 342 K/mm3 (142-424); Red Blood Count 4.68 M/mm3 (4.20-5.40); Red Cell Distribution Width 13.9 % (11.5-17.5); Sodium 135 mmol/L (136-145); White Blood Count 12.6 K/mm3 (4.8-10.8)
[2021-08-03 20:00] LABS: Alanine Aminotransferase 24 U/L (12-78); Albumin Level 3.9 g/dl (3.5-5.0); Albumin/Globulin Ratio 1.2 (1.1-1.8); Alkaline Phosphatase 151 U/L (38-126); Aspartate Amino Transferase 28 U/L (14-36); Bilirubin,Total 0.3 mg/dl (0.2-1.3); Blood Urea Nitrogen 16 mg/dl (7-17); Carbon Dioxide 31 mmol/L (22.0-30.0); Creatinine Clearance Estimated 66 mL/min (50-200); Estimated Glomerular Filt Rate 62 ml/min (>60); GFR (African American) 75 ML/MIN (>60); Globulin 3.3 g/dL (1.3-3.2); Total Protein,Serum 7.2 g/dl (6.3-8.2)
[2021-08-03 20:01] LABS: Calcium 9.5 mg/dl (8.4-10.2); Glucose 208 mg/dl (74-100); MANUAL DIFFERENTIAL MANUAL DIFFERENTIAL (MANUAL DIFF)
--- NOTE | 2021-08-03 20:04 | PC.NURSE ---
Pt gone to RAD
--- NOTE | 2021-08-03 20:06 | PC.NURSE ---
Pt back from RAD
[2021-08-03 20:07] LABS: ABG Base Excess 4.3 mmol/L (-2.4-2.3); ABG Oxygen Saturation 99 % (90-100); ABG PCO2 47.3 mmhg (35.0-45.0); ABG PH 7.41 mmol/L (7.35-7.45); ABG PO2 127.1 mmhg (80-100); ABG TCO2 30.4 mmhg (23-27); Allen's Test Acceptable; Oxygen 32 %
[2021-08-03 20:08] LABS: Source Right Radial
[2021-08-03 20:11] LABS: Microscopic, Urine URINE MICROSCOPIC (MICROSCOPIC)
[2021-08-03 20:15] LABS: Lactic Acid 2.1 mmol/L (0.7-2.1)
[2021-08-03 20:21] LABS: Appearance,Urine CLEAR (Clear); Bilirubin,Urine Negative (Negative); Blood, Urine Negative (Negative); Color,Urine YELLOW (Yellow); Glucose,Urine (UA) Negative (Negative); Ketones,Urine Negative (Negative); Leukocyte Esterase,Urine Negative (Negative); Nitrate,Urine Negative (Negative); PH,Urine 5.5 (5.0-8.5); Protein,Urine 3+ (Negative); Specific Gravity, Urine >= 1.030 (1.005-1.030)
--- NOTE | 2021-08-03 20:34 | HMH.EDGENADL ---
ED Disposition Clinical Impression: COPD exacerbation Disposition: Home, Self-Care Condition on Discharge: Fair Additional Instructions: Please follow-up with Dr. Malave is soon as possible and discuss need for Eliquis with him as you have an increased stroke risk due to your atrial fibrillation. Please make sure you have a plan for this, even though you have been having bright red blood from your rectum. Please return to the emergency department with any new or worsening symptoms including oxygen saturation less than 88%, chest pain, fainting, worsening shortness of breath, fevers or any other new or concerning symptoms. Referrals: Matt Malave MD [Primary Care Provider] - - Critical Care Critical Care Time: No Attestation: On 08/03/21, the high probability of a clinically significant, sudden or life threatening deterioration of the following system(s) required my full and direct attention, intervention and personal management. The time I documented below is in addition to time spent performing reported procedures but includes the following listed in this critical care notation. Medical Decision Making - Davide Inquiry Pt receiving controlled substance: No Vital Signs: 08/03/21 19:08 08/03/21 20:00 08/03/21 20:31 Temperature 98.4 F Temperature Source Oral Pulse Rate 67 75 Pulse Rate [Left Radial] 81 Respiratory Rate 24 24 17 Blood Pressure 134/99 H 130/78 Blood Pressure [Right Arm] 154/58 H Blood Pressure Mean [Right Arm] 90 Blood Pressure Source [Right Arm] Automatic Cuff Blood Pressure Position [Right Arm] Sitting 02 Sat by Pulse Oximetry 95 99 96 Oxygen Delivery Method Nasal Cannula Nasal Cannula Nasal Cannula Oxygen Flow Rate (LPM) 2 2 2 08/03/21 21:01 08/03/21 21:30 08/03/21 22:01 Temperature Temperature Source Pulse Rate 78 76 79 Pulse Rate [Left Radial] Respiratory Rate 30 H 25 H 19 Blood Pressure 142/72 H 137/64 145/73 H Blood Pressure [Right Arm] Blood Pressure Mean [Right Arm] Blood Pressure Source [Right Arm] Blood Pressure Position [Right Arm] 02 Sat by Pulse Oximetry 96 96 96 Oxygen Delivery Method Nasal Cannula Nasal Cannula Nasal Cannula Oxygen Flow Rate (LPM) 2 2 08/03/21 22:31 Temperature Temperature Source Pulse Rate 78 Pulse Rate [Left Radial] Respiratory Rate 24 Blood Pressure 153/78 H Blood Pressure [Right Arm] Blood Pressure Mean [Right Arm] Blood Pressure Source [Right Arm] Blood Pressure Position [Right Arm] 02 Sat by Pulse Oximetry 96 Oxygen Delivery Method Nasal Cannula Oxygen Flow Rate (LPM) 2 - Lab Data Lab Results 08/03/21 19:28: Urine Color Yellow, Urine Appearance Clear, Urine pH 5.5, Ur Specific [place] >= 1.030, Urine Protein 3+, Urine Glucose (UA) Negative, Urine Ketones Negative, Urine Blood Negative, Urine Nitrate Negative, Urine Bilirubin Negative, Urine Urobilinogen 1.0, Ur Leukocyte Esterase Negative, Urine RBC Occasional, Urine WBC 3-5, Ur Squamous Epith Cells 3-5, Urine Bacteria 1+ 08/03/21 19:38: WBC 12.6 H, RBC 4.68, Hgb 14.6, Hct 43.7, MCV 93.4, MCH 31.2, MCHC 33.4, RDW 13.9, Plt Count 342, MPV 9.3, Neut % (Auto) 89.9 H, Lymph % (Auto) 6.1 L, [place] % (Auto) 3.2, Eos % (Auto) 0.5, Baso % (Auto) 0.3, Neut # (Auto) 11.3 H, Lymph # (Auto) 0.8, [place] # (Auto) 0.4, Eos # (Auto) 0.1, Baso # (Auto) 0.0, Total Counted 100, Neutrophils % (Manual) 90 H, Band Neutrophils % 8.0, Lymphocytes % (Manual) 2 L, Platelet Estimate Normal, RBC Morphology Normal 08/03/21 19:38: Sodium 135 L, Potassium 4.0, Chloride 96 L, Carbon Dioxide 31 H, Anion Gap 12.0, BUN 16, Creatinine 0.90, Estimated Creat Clear 66, Estimated GFR 62, Est GFR ( Amer) 75, Glucose 208 H, Calcium 9.5, Total Bilirubin 0.3, AST 28, ALT 24, Alkaline Phosphatase 151 H, Total Protein 7.2, Albumin 3.9, Globulin 3.3 H, Albumin/Globulin Ratio 1.2 08/03/21 19:38: Lactate 2.1 08/03/21 19:38: Troponin I < 0.01 08/03/21 19:49: SARS-CoV-2 (PCR) Not detected, Influenza A U
[2021-08-03 20:35] LABS: Troponin I < 0.01 ng/ml (0.00-0.034)
[2021-08-03 20:38] LABS: Lymphocytes % 2 % (10-50); Neutrophils % 90 % (42-76); Platelet Estimate Normal; RBC Morphology Normal; Total Cells Counted 100
[2021-08-03 20:44] LABS: Bacteria,Urine 1+ /lpf; RBC,Urine Occasional #/hpf (0-3)
[2021-08-03 22:37] LABS: Troponin I < 0.01 ng/ml (0.00-0.034)
== END 2021-08-03 22:58 | disposition home or self-care (01) ==
PROVIDERS: Student in an Organized Health Care Education/Training Program; Emergency Provider Emergency Medicine; PCP Family Medicine
DX: J44.1 Chronic obstructive pulmonary disease with (acute) exacerbation (principal); I48.91 Unspecified atrial fibrillation; K92.1 Melena; Z88.2 Allergy status to sulfonamides; Z79.899 Other long term (current) drug therapy; F41.9 Anxiety disorder, unspecified; I25.10 Atherosclerotic heart disease of native coronary artery without angina pectoris; I50.9 Heart failure, unspecified; F32.A Depression, unspecified; E11.9 Type 2 diabetes mellitus without complications; N28.9 Disorder of kidney and ureter, unspecified; M19.90 Unspecified osteoarthritis, unspecified site
CPT/HCPCS: 71046; 80053; 81001; 82803; 83605; 84484; 85007; 85025; 87040; 93005; 99284; C9803; U0003; U0005

== ENCOUNTER 2021-08-05 16:40 | Emergency (ER) | payer MEDICARE, MEDICAID, SELFPAY ==
[2021-08-05 16:45] VITALS: BP 157/87; PULSE 89; RESP 19; TEMP 37; O2SAT 100; BMI 29.0
--- NOTE | 2021-08-05 17:02 | HMH.EDUTC ---
[facility] [place] Disposition Clinical Impression: UTI (urinary tract infection) Qualifiers: Urinary tract infection type: acute cystitis Hematuria presence: with hematuria Qualified Code(s): N30.01 - Acute cystitis with hematuria Disposition: Home, Self-Care Condition on Discharge: Good Instructions: Urinary Tract Infection Additional Instructions: Increase fluids, water and not soda or tea. Can drink cranberry juice or cranberry extract. White front to back Wear cotton underwear Empty bladder after intercourse Start antibiotics immediately and make sure you take the full course although you may start to see improvement over the next 48 hours. You can eat yogurt or take probiotics to decrease diarrhea or yeast infection caused by the antibiotic Be sure to follow-up anytime for new or worsening symptoms in 48 hours for wound urine culture results be sure to let you PCP no recent urine for culture so they can request records and ensure that you have appropriate antibiotic if you are not getting better or getting worse. If symptoms worsen or do not improve return or be seen in the ER. Follow-up with primary care this week. Prescriptions: cephALEXin [Cephalexin 500mg Tab] 500 mg PO BID 7 Days #14 tab Prescription Printed Referrals: Matt Malave MD [Primary Care Provider] - Time of Disposition: 17:22 Medical Decision Making - Davide Inquiry Pt receiving controlled substance: No Vital Signs: 08/05/21 16:45 08/05/21 17:04 Temperature 98.6 F 98.6 F Temperature Source Oral Pulse Rate 89 Pulse Rate [Right Brachial] 89 Respiratory Rate 19 19 Blood Pressure 157/87 H Blood Pressure [Right Arm] 157/87 H Blood Pressure Mean [Right Arm] 110 Blood Pressure Source [Right Arm] Automatic Cuff Blood Pressure Position [Right Arm] Sitting 02 Sat by Pulse Oximetry 100 Oxygen Delivery Method Room Air [facility] [place] HPI - General Chief complaint: Urgent Treatment Center Stated complaint: blood in urine Time Seen by Provider: 08/05/21 17:03 Mode of Arrival: Ambulatory Source of Information: Patient Limitations: No Limitations Description of Symptoms (Recalled from Triage Doc. by RN): PATIENT C/O BLOOD IN URINE X 3 DAYS HEENT Symptoms (Recalled from RN notes): No Resp Symptoms (Recalled from RN notes): No Skin Symptoms (Recalled from RN notes): No MS Symptoms (Recalled from RN notes): No Functional Status (Recalled from RN notes): WNL - History of Present Illness Provider Complaint: 70 yr old female presents for burning and blood in urine for 2 days. - Related Data Previous Rx's Medication Instructions Recorded hydrocortisone-pramoxine 1 %-1 % 1 applic ND BID PRN #30 g 06/18/21 rectal cream atorvastatin 80 mg tablet 80 mg PO DAILY #90 tab 07/13/21 clonazepam 0.5 mg tablet 0.5 mg PO DAILY #30 tab 07/13/21 diltiazem HCl 120 mg tablet 120 mg PO TID #90 tab 07/13/21 donepezil 10 mg tablet 10 mg PO DAILY #90 tab 07/13/21 levothyroxine 50 mcg tablet 50 mcg PO DAILY #90 tab 07/13/21 montelukast 10 mg tablet 10 mg PO DAILY #90 tab 07/13/21 pantoprazole 40 mg tablet,delayed 40 mg PO DAILY #90 tab 07/13/21 release paroxetine HCl 40 mg tablet 40 mg PO DIRECTED #90 tab 07/13/21 quetiapine 50 mg tablet 50 mg PO HS #90 tab 07/13/21 azithromycin 500 mg tablet 500 mg PO DAILY 3 Days #3 tab 08/03/21 gabapentin 600 mg tablet 600 mg PO Q8H PRN #90 tab 08/03/21 ipratropium 0.5 mg-albuterol 3 mg 3 ml INHALATION QID #180 ml 08/03/21 (2.5 mg base)/3 mL nebulization soln ondansetron HCl 4 mg tablet 4 mg PO TID PRN #30 tab 08/03/21 prednisone 20 mg tablet See Rx Instructions .ROUTE 08/03/21 .COMPLEX #30 tab cephALEXin [Cephalexin 500mg Tab] 500 mg PO BID 7 Days #14 tab 08/05/21 Allergies Allergy/AdvReac Type Severity Reaction Status Date / Time Sulfa (Sulfonamide Allergy Intermediate I-HIVES Verified 08/03/21 09:57 Antibiotics) [SULFA (SULFONAMIDE ANTIBIOTICS)] - Worker's Comp Is this a Worker's Comp case?: No
[2021-08-05 17:04] VITALS: BP 157/87; PULSE 89; RESP 19; TEMP 37; O2SAT 100
[2021-08-05 17:22] LABS: Apearance,Urine Clear (Clear); Color,Urine Yellow (Yellow); Glucose,Urine (UA) Negative (Negative); Ketones,Urine Negative (Negative); PH,Urine 5.5 (5.0-8.5); Protein,Urine Negative (Negative); Specific Gravity, Urine 1.025 (1.005-1.030)
[2021-08-05 17:23] LABS: Bilirubin,Urine Negative (Negative); Blood, Urine 3+ (Negative); UTC Leukocyte Esterase,Urine Negative (Negative); UTC Nitrate,Urine Negative (Negative); Urobilinogen,Urine 0.2 EU/dl (0.2)
== END 2021-08-05 17:29 | disposition home or self-care (01) ==
PROVIDERS: Emergency Provider Nurse Practitioner Family; PCP Family Medicine
DX: N30.01 Acute cystitis with hematuria (principal); I11.0 Hypertensive heart disease with heart failure; I50.9 Heart failure, unspecified; N28.9 Disorder of kidney and ureter, unspecified; I25.10 Atherosclerotic heart disease of native coronary artery without angina pectoris; I25.2 Old myocardial infarction; E11.9 Type 2 diabetes mellitus without complications; M19.90 Unspecified osteoarthritis, unspecified site; F32.A Depression, unspecified; F41.9 Anxiety disorder, unspecified; F17.210 Nicotine dependence, cigarettes, uncomplicated; Z79.1 Long term (current) use of non-steroidal anti-inflammatories (NSAID); Z79.52 Long term (current) use of systemic steroids; Z79.899 Other long term (current) drug therapy; Z88.2 Allergy status to sulfonamides; Z82.49 Family history of ischemic heart disease and other diseases of the circulatory system; Z83.3 Family history of diabetes mellitus
CPT/HCPCS: 81003; 99213; G0463

== ENCOUNTER 2021-08-20 10:40 | Emergency (ER) | payer MEDICARE, MEDICAID, SELFPAY ==
--- NOTE | 2021-08-20 10:51 | XR_ITS ---
PROCEDURE INFORMATION: Exam: XR Chest Exam date and time: 08/20/2021 11:05 AM Age: 70 years old Clinical indication: Cough; Additional info: Cough, congestion, history of lung cancer TECHNIQUE: Imaging protocol: XR of the chest. Views: 2 views. COMPARISON: CR XR CHEST 2V 08/03/2021 7:56 PM FINDINGS: Lungs: Emphysematous change and interstitial prominence. Postoperative change in the right lung. Pleural spaces: No pleural effusion. Heart/Mediastinum: No cardiomegaly. Vasculature: Calcification of the thoracic aorta. Bones/joints: Degenerative change. IMPRESSION: Emphysematous change and interstitial prominence.
[2021-08-20 11:01] VITALS: BP 180/103; PULSE 89; RESP 19; TEMP 36.9; O2SAT 95; BMI 29.0
--- NOTE | 2021-08-20 11:13 | HMH.EDUTC ---
[facility] [place] Clinical Impression: COPD with exacerbation Diarrhea Qualifiers: Diarrhea type: unspecified type Qualified Code(s): R19.7 - Diarrhea, unspecified Disposition: Home, Self-Care Condition on Discharge: Good Instructions: Diarrhea, DI for Chronic Obstructive Pulmonary Disease, COPD: When to Call for Help Additional Instructions: Drink plenty of fluids. Take tylenol or ibuprofen for pain or fever. Take the medications as directed. Follow up with your regular doctor. GO TO THE ER FOR ANY WORSENING SYMPTOMS If your diarrhea continues until tomorrow, please collect a stool sample and bring it back to the lab. This is how we can tell what is causing your diarrhea and see if it needs to be treated with medications. Prescriptions: Benzonatate [Benzonatate 100mg cap] 100 mg PO TIDP PRN #30 cap PRN Reason: Cough Transmission Status: Received by [id number] predniSONE [Deltasone 10mg tablet] 10 mg PO DAILY 9 Days #21 tab Transmission Status: Received by [id number] Azithromycin [Z-Gavino 250mg Tab*] 250 mg PO UD DOSE PK #6 tab Transmission Status: Received by [id number] Referrals: Matt Malave MD [Primary Care Provider] - Time of Disposition: 11:39 Medical Decision Making - Medical Records Medical records reviewed: Yes: I reviewed the patient's medical records. - Davide Inquiry Pt receiving controlled substance: No Vital Signs: 08/20/21 11:01 08/20/21 11:47 Temperature 98.5 F 98.5 F Temperature Source Oral Pulse Rate 89 Pulse Rate [Left Radial] 89 Respiratory Rate 19 19 Blood Pressure 180/103 H Blood Pressure [Right Arm] 180/103 H Blood Pressure Mean [Right Arm] 128 02 Sat by Pulse Oximetry 95 - Lab Data Lab results reviewed: Yes: I reviewed the patient's lab results. - Radiology Data #1 Image(s): Chest Image Reviewed: Yes I reviewed the patient's radiology image, Yes I have reviewed radiologist's interpretation Preliminary Findings: Abnormal, No Infiltrates Seen PROCEDURE INFORMATION: Exam: XR Chest Exam date and time: 08/20/2021 11:05 AM Age: 70 years old Clinical indication: Cough; Additional info: Cough, congestion, history of lung cancer TECHNIQUE: Imaging protocol: XR of the chest. Views: 2 views. COMPARISON: CR XR CHEST 2V 08/03/2021 7:56 PM FINDINGS: Lungs: Emphysematous change and interstitial prominence. Postoperative change in the right lung. Pleural spaces: No pleural effusion. Heart/Mediastinum: No cardiomegaly. Vasculature: Calcification of the thoracic aorta. Bones/joints: Degenerative change. IMPRESSION: Emphysematous change and interstitial prominence. [facility] [place] - General Stated complaint: diarrhea Time Seen by Provider: 08/20/21 11:15 Mode of Arrival: Ambulatory Source of Information: Patient Limitations: No Limitations Description of Symptoms (Recalled from Triage Doc. by RN): pt here with c/o diarrhea for 2-3 days. and a cold that has lasted for 1 week. HEENT Symptoms (Recalled from RN notes): No Resp Symptoms (Recalled from RN notes): Yes Skin Symptoms (Recalled from RN notes): No MS Symptoms (Recalled from RN notes): No Functional Status (Recalled from RN notes): wnl - Related Data Previous Rx's Medication Instructions Recorded hydrocortisone-pramoxine 1 %-1 % 1 applic OR BID PRN #30 g 06/18/21 rectal cream atorvastatin 80 mg tablet 80 mg PO DAILY #90 tab 07/13/21 diltiazem HCl 120 mg tablet 120 mg PO TID #90 tab 07/13/21 donepezil 10 mg tablet 10 mg PO DAILY #90 tab 07/13/21 levothyroxine 50 mcg tablet 50 mcg PO DAILY #90 tab 07/13/21 montelukast 10 mg tablet 10 mg PO DAILY #90 tab 07/13/21 pantoprazole 40 mg tablet,delayed 40 mg PO DAILY #90 tab 07/13/21 release paroxetine HCl 40 mg tablet 40 mg PO DIRECTED #90 tab 07/13/21 quetiapine 50 mg tablet 50 mg PO HS #90 tab 07/13/21 azit
[2021-08-20 11:47] VITALS: BP 180/103; PULSE 89; RESP 19; TEMP 36.9
== END 2021-08-20 11:48 | disposition home or self-care (01) ==
PROVIDERS: Emergency Provider Nurse Practitioner Family; PCP Family Medicine
DX: J44.1 Chronic obstructive pulmonary disease with (acute) exacerbation (principal); R19.7 Diarrhea, unspecified; Z20.822 Contact with and (suspected) exposure to COVID-19; I11.0 Hypertensive heart disease with heart failure; I50.9 Heart failure, unspecified; N28.9 Disorder of kidney and ureter, unspecified; I48.91 Unspecified atrial fibrillation; I25.10 Atherosclerotic heart disease of native coronary artery without angina pectoris; E11.9 Type 2 diabetes mellitus without complications; F32.A Depression, unspecified; F41.9 Anxiety disorder, unspecified; Z79.1 Long term (current) use of non-steroidal anti-inflammatories (NSAID); Z79.52 Long term (current) use of systemic steroids; Z79.899 Other long term (current) drug therapy; Z88.2 Allergy status to sulfonamides; Z82.49 Family history of ischemic heart disease and other diseases of the circulatory system; Z83.3 Family history of diabetes mellitus
CPT/HCPCS: 71046; 99213; C9803; G0463; U0003; U0005

== ENCOUNTER → 2021-08-27 11:27 | Outpatient (CLI) | payer MEDICARE, MEDICAID, SELFPAY ==
--- NOTE | 2021-08-27 11:32 | XR_ITS ---
FINAL REPORT CLINICAL HISTORY: fall FINDINGS: THORACIC SPINE Two views were obtained. There is no acute fracture. There is no malalignment. There are mild degenerative changes with osteophytes. There is no soft tissue abnormality. IMPRESSION: No acute bony abnormality. Reviewed, Interpreted and Dictated by Washington Ramírez III, MD Transcribed by Guillermina Roca Authenticated and [facility]
--- NOTE | 2021-08-27 11:32 | XR_ITS ---
FINAL REPORT CLINICAL HISTORY: fall FINDINGS: LUMBAR SPINE Five views were obtained. There is no acute fracture. There is no malalignment. There is mild degenerative change. There is facet arthropathy in the lower lumbar spine. There is moderate vascular calcification. IMPRESSION: No acute bony abnormality. Reviewed, Interpreted and Dictated by Washington Ramírez III, MD Transcribed by Guillermina Roca Authenticated and [facility]
--- NOTE | 2021-08-27 11:32 | XR_ITS ---
FINAL REPORT CLINICAL HISTORY: pneumonia COMPARISON: August 20, 2021 FINDINGS: Two views of the chest were obtained. There is cardiomegaly. The mediastinum is normal. No acute pulmonary abnormality is identified. There is no pneumothorax. There are postoperative changes in the right thorax. IMPRESSION: No active cardiopulmonary disease. Reviewed, Interpreted and Dictated by Washington Ramírez III, MD Transcribed by Guillermina Roca Authenticated and . [facility]
== END ==
PROVIDERS: PCP Family Medicine; Visit Provider Family Medicine
DX: G89.29 Other chronic pain (principal); I48.11 Longstanding persistent atrial fibrillation; W19.XXXA Unspecified fall, initial encounter; M54.50 Low back pain, unspecified; M54.6 Pain in thoracic spine
CPT/HCPCS: 71046; 72070; 72100

== ENCOUNTER 2021-08-28 09:38 | Emergency (ER) | payer MEDICARE, MEDICAID, SELFPAY ==
[2021-08-28] VITALS (10 sets, daily range): BP systolic 153–202; BP diastolic 78–104; PULSE 88–115; RESP 16–26; TEMP 36.4–36.9; O2SAT 92–99; BMI 27.4
--- NOTE | 2021-08-28 09:50 | ECG_ITS ---
APPROVED REPORT Exam: Resting ECG HR:109 bpm ECG Measurements Heart Rate 109 AXES QRSd 80 QRS 71 QT 311 T 74 QTc 375 Conclusion ATRIAL FIBRILLATION WITH RAPID VENTRICULAR RESPONSE ABNORMAL RHYTHM ECG UNCONFIRMED REPORT Electronically signed by : Dashawn Cedillo MD 08/28/2021 18:40:11
--- NOTE | 2021-08-28 09:53 | PC.NURSE ---
Marcella garay @ [phone] RN in to get labs. spoke to pt
--- NOTE | 2021-08-28 09:54 | XR_ITS ---
FINAL REPORT CLINICAL HISTORY: soa COMPARISON: 04/29/2021 FINDINGS: A single portable view of the chest was obtained. The heart size and pulmonary vascularity are within normal limits. The mediastinum is within normal limits. There are mild worsening bibasilar opacities, favor atelectasis over pneumonia. There are postoperative changes in the right thorax. IMPRESSION: Mild worsening bibasilar opacities, favor atelectasis over pneumonia. Reviewed, Interpreted and Dictated by Washington Ramírez III, MD Transcribed by Vidhya Gutierrez Authenticated and [facility]
--- NOTE | 2021-08-28 09:55 | HMH.EDSOB ---
ED Disposition Clinical Impression: Chronic a-fib, COPD exacerbation, Anxiety Disposition: Home, Self-Care Condition on Discharge: Good Instructions: DI for Chronic Obstructive Pulmonary Disease, DI for Atrial Fibrillation Additional Instructions: follow up PCP 3-5 days, return here for worse Referrals: Matt Malave MD [Primary Care Provider] - - Critical Care Critical Care Time: No Attestation: On 08/28/21, the high probability of a clinically significant, sudden or life threatening deterioration of the following system(s) required my full and direct attention, intervention and personal management. The time I documented below is in addition to time spent performing reported procedures but includes the following listed in this critical care notation. Medical Decision Making - Medical Records Medical records reviewed: Yes: I reviewed the patient's medical records. - Davide Inquiry Pt receiving controlled substance: No Vital Signs: 08/28/21 09:39 08/28/21 09:59 08/28/21 10:16 Temperature 97.5 F L Temperature Source Oral Pulse Rate 109 H Pulse Rate [Apical] 112 H Respiratory Rate 20 20 Blood Pressure 166/103 H Blood Pressure [Right Arm] 202/104 H Blood Pressure Mean 129 Blood Pressure Mean [Right Arm] 136 Blood Pressure Source [Right Arm] Automatic Cuff Blood Pressure Position [Right Arm] Sitting 02 Sat by Pulse Oximetry 92 L 95 94 L Oxygen Delivery Method Room Air Nasal Cannula Nasal Cannula Oxygen Flow Rate (LPM) 2 2 08/28/21 10:28 08/28/21 10:30 Temperature Temperature Source Pulse Rate 98 H 115 H Pulse Rate [Apical] Respiratory Rate 20 20 Blood Pressure 177/78 H 161/90 H Blood Pressure [Right Arm] Blood Pressure Mean 114 113 Blood Pressure Mean [Right Arm] Blood Pressure Source [Right Arm] Blood Pressure Position [Right Arm] 02 Sat by Pulse Oximetry 99 98 Oxygen Delivery Method Nasal Cannula Nasal Cannula Oxygen Flow Rate (LPM) 2 2 - Lab Data Lab Results 08/28/21 09:59: WBC 12.4 H, RBC 5.05, Hgb 15.3, Hct 45.6, MCV 90.2, MCH 30.4, MCHC 33.7, RDW 14.1, Plt Count 303, MPV 9.6, Neut % (Auto) 76.9, Lymph % (Auto) 13.4, [place] % (Auto) 7.1, Eos % (Auto) 1.0, Baso % (Auto) 1.6, Neut # (Auto) 9.5 H, Lymph # (Auto) 1.7, [place] # (Auto) 0.9, Eos # (Auto) 0.1, Baso # (Auto) 0.2 08/28/21 09:59: Sodium 135 L, Potassium 3.5, Chloride 97 L, Carbon Dioxide 30, Anion Gap 11.5, BUN 15, Creatinine 1.00, Estimated Creat Clear 66, Estimated GFR 55 L, Est GFR ( Amer) 67, Glucose 140 H, Calcium 9.4, Total Bilirubin 0.3, AST 31, ALT 22, Alkaline Phosphatase 143 H, Troponin I < 0.01, Total Protein 7.0, Albumin 4.0, Globulin 3.0, Albumin/Globulin Ratio 1.3 08/28/21 09:59: Lactate 2.0 08/28/21 10:16: SARS-CoV-2 (PCR) Not detected, Influenza A Untype (PCR) Not detected, Influenza Type B (PCR) Not detected Result diagrams: 08/28/21 09:59 08/28/21 09:59 Orders (Tests/Meds): ED MEDICATIONS Generic Name Dose Route Start Last Admin Trade Name Freq PRN Reason Stop Dose Admin Sodium Chloride 10 ml 08/28/21 10:15 Sodium Chloride 0.9% 10ml Flush Syringe IV 09/27/21 10:14 NEEDED PRN Maintain IV Site Discontinued Medications Generic Name Dose Route Start Last Admin Trade Name Freq PRN Reason Stop Dose Admin Albuterol/Ipratropium 6 ml 08/28/21 09:55 08/28/21 10:30 Ipratropium/Albuterol 3 Ml Neb IH 08/28/21 09:56 6 ml ONCE ONE Administration Clonazepam 0.5 mg 08/28/21 10:03 Clonazepam 0.5mg Tablet PO 08/28/21 10:04 ONCE ONE Diltiazem HCl 10 mg 08/28/21 09:50 08/28/21 09:50 Diltiazem 25mg/5ml Vial IV 08/28/21 09:51 10 mg ONCE ONE Administration Methylprednisolone Sodium Succinate 125 mg 08/28/21 09:55 08/28/21 10:21 Methylprednisolone Sod Succ 125mg Vial IV 08/28/21 09:56 125 mg ONCE ONE Administration ORDERS Category Date Time Status Troponin I Q3H Lab 08/28/21 13:00 Ordered Troponin I Q3H Lab
--- NOTE | 2021-08-28 10:05 | PC.NURSE ---
pt requested Oxygen, reports she wears O2 at 2L per NC qhs, SaO2 on RA 92% pt placed on 2L per NC
[2021-08-28 10:15] LABS: Basophils # 0.2 K/mm3 (0-0.2); Basophils % 1.6 % (0.1-2.0); Eosinophils # 0.1 K/mm3 (0.0-0.4); Hematocrit 45.6 % (37.0-47.0); Hemoglobin 15.3 g/dL (12.2-16.2); Lymphocytes # 1.7 K/mm3 (0.7-4.5); Lymphocytes % 13.4 % (10-50); Mean Corpuscular HGB Conc 33.7 g/dL (31.8-35.4); Mean Corpuscular Hemoglobin 30.4 pg (27.0-31.2); Mean Corpuscular Volume 90.2 fl (81-99); Mean Platelet Volume 9.6 fl (7.4-10.4); Monocytes # 0.9 K/mm3 (0.1-1.0); Monocytes % 7.1 % (1.7-9.3); Neutrophils # 9.5 K/mm3 (1.8-7.8); Neutrophils % 76.9 % (37.0-80.0); Platelet Count 303 K/mm3 (142-424); Red Blood Count 5.05 M/mm3 (4.20-5.40); Red Cell Distribution Width 14.1 % (11.5-17.5); White Blood Count 12.4 K/mm3 (4.8-10.8)
[2021-08-28 10:17] LABS: Chloride 97 mmol/L (98-107); Potassium 3.5 mmoL/L (3.5-5.1); Sodium 135 mmol/L (136-145)
--- NOTE | 2021-08-28 10:17 | PC.NURSE ---
RT notified of neb order, spoke with jemima
[2021-08-28 10:19] LABS: Blood Urea Nitrogen 15 mg/dl (7-17); Creatinine Clearance Estimated 66 mL/min (50-200); Estimated Glomerular Filt Rate 55 ml/min (>60); GFR (African American) 67 ML/MIN (>60)
[2021-08-28 10:19] LABS: Coronavirus 19, PCR Not Detected (NotDetected); Influenza A, PCR Not Detected (NotDetected); Influenza B, PCR Not Detected (NotDetected)
[2021-08-28 10:20] LABS: Alanine Aminotransferase 22 U/L (12-78); Albumin/Globulin Ratio 1.3 (1.1-1.8); Alkaline Phosphatase 143 U/L (38-126); Anion Gap 11.5 mEq/L (5-15); Aspartate Amino Transferase 31 U/L (14-36); Bilirubin,Total 0.3 mg/dl (0.2-1.3); Calcium 9.4 mg/dl (8.4-10.2); Carbon Dioxide 30 mmol/L (22.0-30.0); Glucose 140 mg/dl (74-100)
[2021-08-28 10:33] LABS: Troponin I < 0.01 ng/ml (0.00-0.034)
== END 2021-08-28 12:18 | disposition home or self-care (01) ==
PROVIDERS: Emergency Provider Emergency Medicine; PCP Family Medicine
DX: I48.20 Chronic atrial fibrillation, unspecified (principal); J44.1 Chronic obstructive pulmonary disease with (acute) exacerbation; F41.9 Anxiety disorder, unspecified; Z88.2 Allergy status to sulfonamides; Z79.899 Other long term (current) drug therapy; I25.10 Atherosclerotic heart disease of native coronary artery without angina pectoris; I11.0 Hypertensive heart disease with heart failure; I50.9 Heart failure, unspecified; E11.9 Type 2 diabetes mellitus without complications; F32.A Depression, unspecified; N28.9 Disorder of kidney and ureter, unspecified; M19.90 Unspecified osteoarthritis, unspecified site
CPT/HCPCS: 71045; 80053; 83605; 84484; 85025; 93005; 94640; 96374; 96375; 99284; C9803; U0003; U0005

== ENCOUNTER 2021-09-06 14:23 | Emergency (ER) | payer MEDICARE, MEDICAID, SELFPAY ==
[2021-09-06 14:24] VITALS: BP 185/92; PULSE 101; RESP 18; TEMP 36.6; O2SAT 93; BMI 27.4
--- NOTE | 2021-09-06 14:29 | HMH.EDGENADL ---
ED Disposition Clinical Impression: Generalized weakness Disposition: Home, Self-Care Condition on Discharge: Good Instructions: DI for Muscle Weakness Referrals: Matt Malave MD [Primary Care Provider] - Time of Disposition: 16:16 - Critical Care Critical Care Time: No Attestation: On , the high probability of a clinically significant, sudden or life threatening deterioration of the following system(s) required my full and direct attention, intervention and personal management. The time I documented below is in addition to time spent performing reported procedures but includes the following listed in this critical care notation. Medical Decision Making - Medical Records Medical records reviewed: Yes: I reviewed the patient's medical records. - Davide Inquiry Pt receiving controlled substance: No Vital Signs: 09/06/21 14:24 09/06/21 15:30 Temperature 97.9 F Temperature Source Oral Pulse Rate 89 Pulse Rate [Right Radial] 101 H Respiratory Rate 18 20 Blood Pressure 154/87 H Blood Pressure [Right Arm] 185/92 H Blood Pressure Mean 115 Blood Pressure Mean [Right Arm] 123 Blood Pressure Source [Right Arm] Automatic Cuff Blood Pressure Position [Right Arm] Sitting 02 Sat by Pulse Oximetry 93 L 93 L Oxygen Delivery Method Room Air Room Air - Lab Data Lab Results 09/06/21 14:50: Urine Color Yellow, Urine Appearance Clear, Urine pH 6.0, Ur Specific [place] >= 1.030, Urine Protein 2+, Urine Glucose (UA) Negative, Urine Ketones Negative, Urine Blood Trace-i, Urine Nitrate Negative, Urine Bilirubin Negative, Urine Urobilinogen 0.2, Ur Leukocyte Esterase Trace, Urine RBC 5-10, Urine WBC Occasional, Ur Squamous Epith Cells 3-5, Urine Bacteria Trace 09/06/21 15:25: WBC 12.4 H, RBC 4.10 L, Hgb 12.8, Hct 37.2, MCV 90.7, MCH 31.1, MCHC 34.3, RDW 14.3, Plt Count 202, MPV 10.0, Neut % (Auto) 79.1, Lymph % (Auto) 12.9, [place] % (Auto) 5.3, Eos % (Auto) 1.8, Baso % (Auto) 0.7, Neut # (Auto) 9.8 H, Lymph # (Auto) 1.6, [place] # (Auto) 0.7, Eos # (Auto) 0.2, Baso # (Auto) 0.1 09/06/21 15:25: Sodium 135 L, Potassium 4.0, Chloride 102, Carbon Dioxide 31 H, Anion Gap 6.0, BUN 12, Creatinine 0.90, Estimated Creat Clear 66, Estimated GFR 62, Est GFR ( Amer) 75, Glucose 89, Calcium 8.6, Total Bilirubin 0.5, AST 25, ALT 15, Alkaline Phosphatase 115, Troponin I < 0.01, NT-Pro-B Natriuret Pep 1550 H, Total Protein 5.8 L, Albumin 3.3 L, Globulin 2.5, Albumin/Globulin Ratio 1.3 Result diagrams: 09/06/21 15:25 09/06/21 15:25 Orders (Tests/Meds): ORDERS Category Date Time Status Troponin I Q3H Lab 09/06/21 18:00 Ordered Troponin I Q3H Lab 09/06/21 21:00 Ordered - ECG Data Tracing #1 I reviewed this ECG and interpreted as documented below: atrial fibrillation @ 85 normal axis QRS [address]/T wave changes General Adult HPI - General Stated complaint: weakness Time Seen by Provider: 09/06/21 14:29 Mode of Arrival: Ambulatory Source of Information: Patient - History of Present Illness HPI narrative: 70 yo/F, hx of a-fib, presents with c/o generalized weakness, ongoing for a few days. Denies any other factors, specifically no chest pain, shortness of breath, N/V, fevers, chills, dysuria, abdominal pain. No treatments for this prior to this visit. States she has been eating and drinking normally - Related Data Previous Rx's Medication Instructions Recorded ondansetron HCl 4 mg tablet 4 mg PO TID PRN #30 tab 08/03/21 Benzonatate [Benzonatate 100mg 100 mg PO TIDP PRN #30 cap 08/20/21 cap] acetaminophen 300 mg-codeine 30 mg 1 tab PO TID PRN #30 tab 08/27/21 tablet atorvastatin 80 mg tablet 80 mg PO DAILY #90 tab 08/27/21 clonazepam 0.5 mg tablet 0.5 mg PO DAILY #30 tab 08/27/21 diltiazem HCl 120 mg tablet 120 mg PO TID #90 tab 08/27/21 gabapentin 600 mg tablet 600 mg PO Q8H PRN #90 tab 08/27/21 ipratropium 0.5 mg-albuterol 3 mg 3 ml INHALATION QID #180 ml 08/27/21 (2.5 mg b
--- NOTE | 2021-09-06 14:31 | ECG_ITS ---
APPROVED REPORT Exam: Resting ECG HR:85 bpm ECG Measurements Heart Rate 85 AXES QRSd 76 QRS 61 QT 350 T 67 QTc 392 Conclusion ATRIAL FIBRILLATION ABNORMAL RHYTHM ECG UNCONFIRMED REPORT Electronically signed by : Dashawn Cedillo MD 09/07/2021 15:37:23
--- NOTE | 2021-09-06 14:42 | PC.NURSE ---
Pt in bathroom attempting to provide urine sample
--- NOTE | 2021-09-06 14:51 | XR_ITS ---
FINAL REPORT CLINICAL HISTORY: SOB, weakness COMPARISON: August 28, 2021 FINDINGS: A single portable view of the chest was obtained. There is cardiomegaly. The mediastinum is within normal limits. There is mild scarring in the right lung base. There are postoperative changes in the right thorax. The bony thorax is intact. IMPRESSION: No active process. Reviewed, Interpreted and Dictated by Washington Ramírez III, MD Transcribed by Guillermina Roca Authenticated and [facility]
[2021-09-06 14:58] LABS: Microscopic, Urine URINE MICROSCOPIC (MICROSCOPIC)
[2021-09-06 15:03] LABS: Appearance,Urine CLEAR (Clear); Bilirubin,Urine Negative (Negative); Blood, Urine TRACE-I (Negative); Color,Urine YELLOW (Yellow); Glucose,Urine (UA) Negative (Negative); Ketones,Urine Negative (Negative); Leukocyte Esterase,Urine TRACE (Negative); Nitrate,Urine Negative (Negative); Protein,Urine 2+ (Negative); Specific Gravity, Urine >= 1.030 (1.005-1.030); Urobilinogen,Urine 0.2 EU/dl (0.2)
[2021-09-06 15:17] LABS: WBC,Urine Occasional #/hpf (0-3)
[2021-09-06 15:18] LABS: Bacteria,Urine Trace /lpf
[2021-09-06 15:30] VITALS: BP 154/87; PULSE 89; RESP 20; O2SAT 93
--- NOTE | 2021-09-06 15:31 | PC.NURSE ---
checked on pt at this time, pt resting in bed, states no needs, offered pt a blanket, pt request a sheet instead.
[2021-09-06 15:33] LABS: Basophils # 0.1 K/mm3 (0-0.2); Basophils % 0.7 % (0.1-2.0); Eosinophils # 0.2 K/mm3 (0.0-0.4); Eosinophils % 1.8 % (0.1-12.0); Hematocrit 37.2 % (37.0-47.0); Hemoglobin 12.8 g/dL (12.2-16.2); Lymphocytes # 1.6 K/mm3 (0.7-4.5); Lymphocytes % 12.9 % (10-50); Mean Corpuscular HGB Conc 34.3 g/dL (31.8-35.4); Mean Corpuscular Hemoglobin 31.1 pg (27.0-31.2); Mean Corpuscular Volume 90.7 fl (81-99); Monocytes # 0.7 K/mm3 (0.1-1.0); Monocytes % 5.3 % (1.7-9.3); Neutrophils # 9.8 K/mm3 (1.8-7.8); Neutrophils % 79.1 % (37.0-80.0); Platelet Count 202 K/mm3 (142-424); Red Cell Distribution Width 14.3 % (11.5-17.5); White Blood Count 12.4 K/mm3 (4.8-10.8)
[2021-09-06 15:40] LABS: Chloride 102 mmol/L (98-107)
[2021-09-06 15:41] LABS: Sodium 135 mmol/L (136-145)
[2021-09-06 15:43] LABS: Alanine Aminotransferase 15 U/L (12-78); Aspartate Amino Transferase 25 U/L (14-36); Blood Urea Nitrogen 12 mg/dl (7-17); Creatinine Clearance Estimated 66 mL/min (50-200); Estimated Glomerular Filt Rate 62 ml/min (>60); GFR (African American) 75 ML/MIN (>60)
[2021-09-06 15:44] LABS: Albumin Level 3.3 g/dl (3.5-5.0); Albumin/Globulin Ratio 1.3 (1.1-1.8); Alkaline Phosphatase 115 U/L (38-126); Bilirubin,Total 0.5 mg/dl (0.2-1.3); Calcium 8.6 mg/dl (8.4-10.2); Carbon Dioxide 31 mmol/L (22.0-30.0); Globulin 2.5 g/dL (1.3-3.2); Glucose 89 mg/dl (74-100); Total Protein,Serum 5.8 g/dl (6.3-8.2)
[2021-09-06 15:53] LABS: NT Pro Brain Natriuretic Pep. 1550 pg/mL (0-125)
[2021-09-06 16:03] LABS: Troponin I < 0.01 ng/ml (0.00-0.034)
[2021-09-06 16:22] VITALS: BP 164/79; PULSE 85; RESP 16; TEMP 36.7; O2SAT 92
== END 2021-09-06 16:22 | disposition home or self-care (01) ==
PROVIDERS: Emergency Provider Emergency Medicine; PCP Family Medicine
DX: R53.1 Weakness (principal); I50.9 Heart failure, unspecified; I25.10 Atherosclerotic heart disease of native coronary artery without angina pectoris; I49.9 Cardiac arrhythmia, unspecified; I48.91 Unspecified atrial fibrillation; E11.9 Type 2 diabetes mellitus without complications; M19.90 Unspecified osteoarthritis, unspecified site; F41.9 Anxiety disorder, unspecified; F32.A Depression, unspecified; F17.210 Nicotine dependence, cigarettes, uncomplicated; Z79.1 Long term (current) use of non-steroidal anti-inflammatories (NSAID); Z79.51 Long term (current) use of inhaled steroids; Z79.899 Other long term (current) drug therapy; Z88.2 Allergy status to sulfonamides; Z85.9 Personal history of malignant neoplasm, unspecified
CPT/HCPCS: 71045; 80053; 81001; 83880; 84484; 85025; 93005; 99284

== ENCOUNTER 2021-09-07 15:34 | Emergency (ER) | payer MEDICARE, MEDICAID, SELFPAY ==
[2021-09-07 15:35] VITALS: BP 170/80; PULSE 88; RESP 18; TEMP 36.4; O2SAT 95; BMI 27.4
--- NOTE | 2021-09-07 15:50 | PC.NURSE ---
pt was able to transfer from wheelchair to bed without assistance.
[2021-09-07 16:00] VITALS: BP 148/77; PULSE 77; O2SAT 95
[2021-09-07 16:23] LABS: Basophils # 0.2 K/mm3 (0-0.2); Basophils % 1.6 % (0.1-2.0); Eosinophils # 0.2 K/mm3 (0.0-0.4); Eosinophils % 1.8 % (0.1-12.0); Hematocrit 38.9 % (37.0-47.0); Hemoglobin 13.2 g/dL (12.2-16.2); Lymphocytes # 1.6 K/mm3 (0.7-4.5); Lymphocytes % 12.8 % (10-50); Mean Corpuscular HGB Conc 33.9 g/dL (31.8-35.4); Mean Corpuscular Hemoglobin 31.1 pg (27.0-31.2); Mean Corpuscular Volume 91.7 fl (81-99); Mean Platelet Volume 9.3 fl (7.4-10.4); Monocytes # 0.7 K/mm3 (0.1-1.0); Monocytes % 5.4 % (1.7-9.3); Neutrophils % 78.4 % (37.0-80.0); Platelet Count 201 K/mm3 (142-424); Red Blood Count 4.25 M/mm3 (4.20-5.40); Red Cell Distribution Width 14.5 % (11.5-17.5); White Blood Count 12.7 K/mm3 (4.8-10.8)
[2021-09-07 16:27] LABS: Chloride 101 mmol/L (98-107); Potassium 3.7 mmoL/L (3.5-5.1); Sodium 135 mmol/L (136-145)
[2021-09-07 16:30] VITALS: BP 164/87; PULSE 84; O2SAT 98
[2021-09-07 16:30] LABS: Alanine Aminotransferase 17 U/L (12-78); Albumin Level 3.4 g/dl (3.5-5.0); Albumin/Globulin Ratio 1.3 (1.1-1.8); Alkaline Phosphatase 125 U/L (38-126); Anion Gap 5.7 mEq/L (5-15); Aspartate Amino Transferase 28 U/L (14-36); Bilirubin,Total 0.5 mg/dl (0.2-1.3); Blood Urea Nitrogen 9 mg/dl (7-17); Carbon Dioxide 32 mmol/L (22.0-30.0); Creatinine Clearance Estimated 66 mL/min (50-200); Estimated Glomerular Filt Rate 71 ml/min (>60); GFR (African American) 86 ML/MIN (>60); Globulin 2.6 g/dL (1.3-3.2)
--- NOTE | 2021-09-07 16:30 | HMH.EDGENADL ---
ED Disposition Clinical Impression: Elevated brain natriuretic peptide (BNP) level, Weakness, Hypomagnesemia, Elevated C-reactive protein (CRP), Elevated erythrocyte sedimentation rate, Elevated TSH Leukocytosis Qualifiers: Leukocytosis type: unspecified Qualified Code(s): D72.829 - Elevated white blood cell count, unspecified Disposition: Home, Self-Care Condition on Discharge: Fair Instructions: DI for Muscle Weakness Additional Instructions: Magnesium oxide as prescribed. Follow-up with Dr. Malave next week. Laboratory findings and need follow-up with your primary care provider: BNP is elevated, can be seen with congestive heart failure, you may need echocardiogram TSH is low, indicating you may need adjustment of your thyroid medication Magnesium was mildly low White blood cell count was mildly high Inflammatory markers are mildly elevated Prescriptions: Magnesium Oxide [Magnesium] 400 mg PO DAILY #7 cap Transmission Status: Pending to [facility] Referrals: Matt Malave MD [Primary Care Provider] - - Critical Care Critical Care Time: No Attestation: On 09/07/21, the high probability of a clinically significant, sudden or life threatening deterioration of the following system(s) required my full and direct attention, intervention and personal management. The time I documented below is in addition to time spent performing reported procedures but includes the following listed in this critical care notation. Medical Decision Making - Davide Inquiry Pt receiving controlled substance: No Vital Signs: 09/07/21 15:35 09/07/21 16:00 09/07/21 16:30 Temperature 97.6 F Temperature Source Oral Pulse Rate 77 84 Pulse Rate [Left Radial] 88 Respiratory Rate 18 Blood Pressure 148/77 H 164/87 H Blood Pressure [Right Arm] 170/80 H Blood Pressure Mean 100 96 Blood Pressure Mean [Right Arm] 110 Blood Pressure Source [Right Arm] Automatic Cuff Blood Pressure Position [Right Arm] Sitting 02 Sat by Pulse Oximetry 95 95 98 Oxygen Delivery Method Room Air 09/07/21 17:00 09/07/21 17:30 Temperature Temperature Source Pulse Rate 75 89 Pulse Rate [Left Radial] Respiratory Rate Blood Pressure 164/77 H 177/93 H Blood Pressure [Right Arm] Blood Pressure Mean 106 111 Blood Pressure Mean [Right Arm] Blood Pressure Source [Right Arm] Blood Pressure Position [Right Arm] 02 Sat by Pulse Oximetry 98 97 Oxygen Delivery Method - Lab Data Lab Results 09/07/21 16:15: WBC 12.7 H, RBC 4.25, Hgb 13.2, Hct 38.9, MCV 91.7, MCH 31.1, MCHC 33.9, RDW 14.5, Plt Count 201, MPV 9.3, Neut % (Auto) 78.4, Lymph % (Auto) 12.8, [place] % (Auto) 5.4, Eos % (Auto) 1.8, Baso % (Auto) 1.6, Neut # (Auto) 10.0 H, Lymph # (Auto) 1.6, [place] # (Auto) 0.7, Eos # (Auto) 0.2, Baso # (Auto) 0.2 09/07/21 16:15: Sodium 135 L, Potassium 3.7, Chloride 101, Carbon Dioxide 32 H, Anion Gap 5.7, BUN 9, Creatinine 0.80, Estimated Creat Clear 66, Estimated GFR 71, Est GFR ( Amer) 86, Glucose 95, Calcium 8.7, Total Bilirubin 0.5, AST 28, ALT 17, Alkaline Phosphatase 125, Total Protein 6.0 L, Albumin 3.4 L, Globulin 2.6, Albumin/Globulin Ratio 1.3 09/07/21 16:15: NT-Pro-B Natriuret Pep 2370 H 09/07/21 16:15: Total Creatine Kinase 82, C-Reactive Protein 51.2 H 09/07/21 16:15: ESR 64 H 09/07/21 16:15: Magnesium 1.5 L, TSH 0.34 L 09/07/21 16:31: Troponin I < 0.01 09/07/21 16:35: SARS-CoV-2 (PCR) Not detected, Influenza A Untype (PCR) Not detected, Influenza Type B (PCR) Not detected 09/07/21 16:44: Urine Color Yellow, Urine Appearance Clear, Urine pH 6.0, Ur Specific [place] 1.010, Urine Protein Trace, Urine Glucose (UA) Negative, Urine Ketones Negative, Urine Blood Trace-i, Urine Nitrate Negative, Urine Bilirubin Negative, Urine Urobilinogen 0.2, Ur Leukocyte Esterase Negative, Urine RBC Occasional, Urine WBC None, Ur Squamous Epith Cells None, Urine Bacteria None Result diagrams: 09/07/21 16:15 09/07/21 16:15 Order
[2021-09-07 16:31] LABS: Calcium 8.7 mg/dl (8.4-10.2); Glucose 95 mg/dl (74-100)
--- NOTE | 2021-09-07 16:32 | PC.NURSE ---
ED MD AT BEDSIDE
--- NOTE | 2021-09-07 16:36 | ECG_ITS ---
APPROVED REPORT Exam: Resting ECG HR:86 bpm ECG Measurements Heart Rate 86 AXES QRSd 81 QRS 55 QT 376 T 52 QTc 419 Conclusion ATRIAL FIBRILLATION ABNORMAL RHYTHM ECG UNCONFIRMED REPORT Electronically signed by : Dashawn Cedillo MD 09/09/2021 18:43:17
[2021-09-07 16:40] LABS: NT Pro Brain Natriuretic Pep. 2370 pg/mL (0-125)
[2021-09-07 16:45] LABS: Coronavirus 19, PCR Not Detected (NotDetected); Influenza A, PCR Not Detected (NotDetected); Influenza B, PCR Not Detected (NotDetected)
[2021-09-07 16:47] LABS: Microscopic, Urine URINE MICROSCOPIC (MICROSCOPIC)
[2021-09-07 16:49] LABS: Appearance,Urine CLEAR (Clear); Bilirubin,Urine Negative (Negative); Blood, Urine TRACE-I (Negative); Color,Urine YELLOW (Yellow); Glucose,Urine (UA) Negative (Negative); Ketones,Urine Negative (Negative); Leukocyte Esterase,Urine Negative (Negative); Nitrate,Urine Negative (Negative); Protein,Urine TRACE (Negative); Urobilinogen,Urine 0.2 EU/dl (0.2)
[2021-09-07 16:52] LABS: Creatine Kinase 82 U/L (30-135)
[2021-09-07 16:57] LABS: C-Reactive Protein 51.2 mg/L (0-4)
[2021-09-07 17:00] VITALS: BP 164/77; PULSE 75; O2SAT 98
[2021-09-07 17:04] LABS: RBC,Urine Occasional #/hpf (0-3)
[2021-09-07 17:09] LABS: Troponin I < 0.01 ng/ml (0.00-0.034)
[2021-09-07 17:11] LABS: Erythrocyte Sedimentation Rate 64 mm/hr (0-30)
[2021-09-07 17:16] LABS: Magnesium 1.5 mg/dl (1.6-2.3)
[2021-09-07 17:30] VITALS: BP 177/93; PULSE 89; O2SAT 97
[2021-09-07 17:48] LABS: Thyroid Stimulating Hormone 0.34 uIU/mL (0.465-4.68)
[2021-09-07 18:29] VITALS: BP 177/93; PULSE 89; RESP 18; TEMP 36.4; O2SAT 95
== END 2021-09-07 18:31 | disposition home or self-care (01) ==
PROVIDERS: Emergency Provider Emergency Medicine; PCP Family Medicine
DX: R53.1 Weakness (principal); E83.42 Hypomagnesemia; R06.03 Acute respiratory distress; R79.82 Elevated C-reactive protein (CRP); D72.829 Elevated white blood cell count, unspecified; R53.82 Chronic fatigue, unspecified; Z20.822 Contact with and (suspected) exposure to COVID-19; R94.6 Abnormal results of thyroid function studies; I50.9 Heart failure, unspecified; N18.9 Chronic kidney disease, unspecified; I25.10 Atherosclerotic heart disease of native coronary artery without angina pectoris; I48.91 Unspecified atrial fibrillation; E11.9 Type 2 diabetes mellitus without complications; M19.90 Unspecified osteoarthritis, unspecified site; F32.A Depression, unspecified; F41.9 Anxiety disorder, unspecified; F17.210 Nicotine dependence, cigarettes, uncomplicated; Z83.3 Family history of diabetes mellitus; Z79.51 Long term (current) use of inhaled steroids; Z79.1 Long term (current) use of non-steroidal anti-inflammatories (NSAID); Z88.2 Allergy status to sulfonamides; Z79.899 Other long term (current) drug therapy; Z82.49 Family history of ischemic heart disease and other diseases of the circulatory system
CPT/HCPCS: 80053; 81001; 82550; 83735; 83880; 84443; 84484; 85025; 85651; 86140; 93005; 99284; C9803; U0003; U0005

== ENCOUNTER 2021-09-27 07:42 | Inpatient (IN) | payer MEDICARE, MEDICAID, SELFPAY ==
[2021-09-27] VITALS (54 sets, daily range): BP systolic 107–227; BP diastolic 67–168; PULSE 74–114; RESP 18–20; TEMP 36.4–36.8; O2SAT 91–98; BMI 29.0; BMI 28.1
--- NOTE | 2021-09-27 07:49 | ECG_ITS ---
APPROVED REPORT Exam: Resting ECG HR:96 bpm ECG Measurements Heart Rate 96 AXES QRSd 75 QRS 72 QT 330 T 59 QTc 383 Conclusion ATRIAL FIBRILLATION ABNORMAL RHYTHM ECG UNCONFIRMED REPORT Electronically signed by : Dashawn Cedillo MD 09/27/2021 17:39:26
--- NOTE | 2021-09-27 07:56 | XR_ITS ---
FINAL REPORT CLINICAL HISTORY: weakness/hypertension COMPARISON: 09/06/2021 FINDINGS: A single portable view of the chest was obtained. There is cardiomegaly. The mediastinum is within normal limits. There is mild bibasilar scarring, stable. There are postoperative changes in the right thorax. IMPRESSION: Mild bibasilar scarring, stable. Reviewed, Interpreted and Dictated by Washington Ramírez III, MD Transcribed by Guillermina Roca Authenticated and [facility]
--- NOTE | 2021-09-27 07:59 | PC.NURSE ---
family at the bedside
--- NOTE | 2021-09-27 07:59 | PC.NURSE ---
portable xr at the bedside
--- NOTE | 2021-09-27 08:10 | PC.NURSE ---
at the bedside
[2021-09-27 08:13] LABS: Basophils # 0.1 K/mm3 (0-0.2); Basophils % 0.5 % (0.1-2.0); Eosinophils # 0.2 K/mm3 (0.0-0.4); Eosinophils % 1.7 % (0.1-12.0); Hematocrit 44.5 % (37.0-47.0); Hemoglobin 14.8 g/dL (12.2-16.2); Lymphocytes # 2.5 K/mm3 (0.7-4.5); Lymphocytes % 21.2 % (10-50); Mean Corpuscular HGB Conc 33.3 g/dL (31.8-35.4); Mean Corpuscular Hemoglobin 29.4 pg (27.0-31.2); Mean Corpuscular Volume 88.3 fl (81-99); Mean Platelet Volume 8.6 fl (7.4-10.4); Monocytes # 0.6 K/mm3 (0.1-1.0); Monocytes % 4.7 % (1.7-9.3); Neutrophils # 8.5 K/mm3 (1.8-7.8); Platelet Count 332 K/mm3 (142-424); Red Blood Count 5.03 M/mm3 (4.20-5.40); Red Cell Distribution Width 14.1 % (11.5-17.5); White Blood Count 11.8 K/mm3 (4.8-10.8)
--- NOTE | 2021-09-27 08:16 | HMH.EDGENADL ---
ED Disposition Clinical Impression: Hypertensive emergency Congestive heart failure Qualifiers: Heart failure type: unspecified Heart failure chronicity: acute on chronic Qualified Code(s): I50.9 - Heart failure, unspecified Disposition: Admitted As Inpatient Condition on Discharge: Serious Referrals: Matt Malave MD [Primary Care Provider] - - Critical Care Critical Care Time: Yes Attestation: On 09/27/21, the high probability of a clinically significant, sudden or life threatening deterioration of the following system(s) required my full and direct attention, intervention and personal management. The time I documented below is in addition to time spent performing reported procedures but includes the following listed in this critical care notation. Total Critical Care Time: 45 Vital system(s) involved:: Circulatory Failure My critical care processes included: Assessment & monitoring of V/S, Initial and Re-exams, Data Review/Interpretation, Coordinating Care, Medication Orders and management, Documentation Medical Decision Making - Medical Records Medical records reviewed: Yes: I reviewed the patient's medical records. MR Comment: Reviewed office note from PCP visit, Dr. Malave, 09/25/2021. Patient diagnosed with sinusitis. Given an injection of Depo-Medrol 80 mg. Appears to have had a scheduled appointment to see Dr. Waddell yesterday for follow-up cardiology, but did not show. - Davide Inquiry Pt receiving controlled substance: No Vital Signs: 09/27/21 07:51 09/27/21 08:01 09/27/21 08:04 Temperature 98.3 F Temperature Source Oral Pulse Rate 96 H 98 H Pulse Rate [Left Radial] 114 H Respiratory Rate 18 18 18 Blood Pressure 154/130 H 176/96 H Blood Pressure [Right Arm] 204/108 H Blood Pressure Mean 136 144 Blood Pressure Mean [Right Arm] 140 02 Sat by Pulse Oximetry 94 L 95 96 Oxygen Delivery Method Room Air Room Air Room Air 09/27/21 08:12 09/27/21 08:30 Temperature Temperature Source Pulse Rate 96 H 96 H Pulse Rate [Left Radial] Respiratory Rate 18 18 Blood Pressure 176/96 H 184/100 H Blood Pressure [Right Arm] Blood Pressure Mean 128 Blood Pressure Mean [Right Arm] 02 Sat by Pulse Oximetry 98 96 Oxygen Delivery Method Room Air Room Air - Lab Data Lab Results 09/27/21 07:55: WBC 11.8 H, RBC 5.03, Hgb 14.8, Hct 44.5, MCV 88.3, MCH 29.4, MCHC 33.3, RDW 14.1, Plt Count 332, MPV 8.6, Neut % (Auto) 72.0, Lymph % (Auto) 21.2, [place] % (Auto) 4.7, Eos % (Auto) 1.7, Baso % (Auto) 0.5, Neut # (Auto) 8.5 H, Lymph # (Auto) 2.5, [place] # (Auto) 0.6, Eos # (Auto) 0.2, Baso # (Auto) 0.1 09/27/21 07:55: Sodium 138, Potassium 3.3 L, Chloride 99, Carbon Dioxide 33 H, Anion Gap 9.3, BUN 15, Creatinine 0.80, Estimated Creat Clear 69, Estimated GFR 71, Est GFR ( Amer) 86, Glucose 136 H, Calcium 9.7, Total Bilirubin 0.3, AST 30, ALT 22, Alkaline Phosphatase 142 H, Troponin I < 0.01, Total Protein 7.4, Albumin 4.2, Globulin 3.2, Albumin/Globulin Ratio 1.3 09/27/21 07:55: NT-Pro-B Natriuret Pep 2730 H 09/27/21 07:55: Magnesium 1.4 L 09/27/21 08:03: SARS-CoV-2 (PCR) Not detected, Influenza A Untype (PCR) Not detected, Influenza Type B (PCR) Not detected 09/27/21 09:10: Urine Color Yellow, Urine Appearance Clear, Urine pH 7.0, Ur Specific [place] 1.015, Urine Protein 2+, Urine Glucose (UA) Negative, Urine Ketones Negative, Urine Blood Trace-l, Urine Nitrate Negative, Urine Bilirubin Negative, Urine Urobilinogen 0.2, Ur Leukocyte Esterase Negative, Urine RBC Occasional, Urine WBC Occasional, Ur Squamous Epith Cells 3-5, Urine Bacteria Trace Result diagrams: 09/27/21 07:55 09/27/21 07:55 Orders (Tests/Meds): ED MEDICATIONS Generic Name Dose Route Start Last Admin Trade Name Freq PRN Reason Stop Dose Admin Magnesium Oxide 400 mg 09/27/21 09:15 09/27/21 09:17 Magnesium Oxide 400mg Tablet PO 10/27/21 09:14 400 mg DAILY CARLO Administration Nitroglycerin 1 gm 09/27/21 09:15 09/27
[2021-09-27 08:20] LABS: Alanine Aminotransferase 22 U/L (12-78); Albumin Level 4.2 g/dl (3.5-5.0); Albumin/Globulin Ratio 1.3 (1.1-1.8); Alkaline Phosphatase 142 U/L (38-126); Anion Gap 9.3 mEq/L (5-15); Aspartate Amino Transferase 30 U/L (14-36); Bilirubin,Total 0.3 mg/dl (0.2-1.3); Blood Urea Nitrogen 15 mg/dl (7-17); Calcium 9.7 mg/dl (8.4-10.2); Carbon Dioxide 33 mmol/L (22.0-30.0); Chloride 99 mmol/L (98-107); Creatinine Clearance Estimated 69 mL/min (50-200); Estimated Glomerular Filt Rate 71 ml/min (>60); GFR (African American) 86 ML/MIN (>60); Globulin 3.2 g/dL (1.3-3.2); Glucose 136 mg/dl (74-100); Potassium 3.3 mmoL/L (3.5-5.1); Sodium 138 mmol/L (136-145); Total Protein,Serum 7.4 g/dl (6.3-8.2)
[2021-09-27 08:27] LABS: Coronavirus 19, PCR Not Detected (NotDetected); Influenza A, PCR Not Detected (NotDetected); Influenza B, PCR Not Detected (NotDetected)
[2021-09-27 08:37] LABS: Troponin I < 0.01 ng/ml (0.00-0.034)
[2021-09-27 08:41] LABS: Magnesium 1.4 mg/dl (1.6-2.3)
[2021-09-27 08:51] LABS: NT Pro Brain Natriuretic Pep. 2730 pg/mL (0-125)
--- NOTE | 2021-09-27 09:07 | INFXCTL.NOTE ---
ambulated to the restroom with no complications.
--- NOTE | 2021-09-27 09:08 | PC.NURSE ---
ambulated to the restroom with no complications
--- NOTE | 2021-09-27 09:12 | PC.NURSE ---
pt had 250 ml out
[2021-09-27 09:16] LABS: Microscopic, Urine URINE MICROSCOPIC (MICROSCOPIC)
--- NOTE | 2021-09-27 09:26 | PC.NURSE ---
pt ambulated to the restroom at this time
[2021-09-27 09:30] LABS: Appearance,Urine CLEAR (Clear); Bilirubin,Urine Negative (Negative); Blood, Urine TRACE-L (Negative); Color,Urine YELLOW (Yellow); Glucose,Urine (UA) Negative (Negative); Ketones,Urine Negative (Negative); Leukocyte Esterase,Urine Negative (Negative); Nitrate,Urine Negative (Negative); Protein,Urine 2+ (Negative); Specific Gravity, Urine 1.015 (1.005-1.030); Urobilinogen,Urine 0.2 EU/dl (0.2)
[2021-09-27 09:44] LABS: RBC,Urine Occasional #/hpf (0-3); WBC,Urine Occasional #/hpf (0-3)
[2021-09-27 09:45] LABS: Bacteria,Urine Trace /lpf
--- NOTE | 2021-09-27 09:51 | PC.NURSE ---
DR DISLA SPEAKING WITH DR BROOKS
--- NOTE | 2021-09-27 09:57 | PC.NURSE ---
NAVID GALINDO speaking isabela rodgers
--- NOTE | 2021-09-27 09:57 | PC.NURSE ---
speaking with isabela quick
--- NOTE | 2021-09-27 10:07 | PC.NURSE ---
notified care management of admission, spoke with anthony, states pt will be an acute admission
--- NOTE | 2021-09-27 10:10 | PC.NURSE ---
checked on pt at this time, family at BS. Pt states no needs. Will continue to monitor
--- NOTE | 2021-09-27 10:16 | PC.NURSE ---
vascular lab at for echo
--- NOTE | 2021-09-27 10:29 | PC.NURSE ---
per housekeeping/laundry supervisor pt is assigned to room 219 but they are discharging a pt from that room and then it will need to be clean. will update us when room is ready
--- NOTE | 2021-09-27 10:45 | PC.NURSE ---
updated pt on bed status, pt assigned to room 219 but will be in ER until room is available, pt verbalized understanding
--- NOTE | 2021-09-27 10:46 | PC.NURSE ---
nitro drip started at this time @ 10 mcg. will continue to monitor
--- NOTE | 2021-09-27 11:11 | PC.NURSE ---
pt increased to 15 mcg/min
--- NOTE | 2021-09-27 11:38 | PC.NURSE ---
pt increased to 20mcg
--- NOTE | 2021-09-27 11:53 | PC.NURSE ---
per protocol, pt adjusted to 30mcg.
--- NOTE | 2021-09-27 12:03 | PC.NURSE ---
checked on pt at this time, pt resting in bed, updated pt still waiting on her room to be available
--- NOTE | 2021-09-27 12:57 | PC.NURSE ---
drip adjusted to 40mcg
--- NOTE | 2021-09-27 12:57 | PC.NURSE ---
Assisted pt to restroom, she was able to ambulate independently. Called dietary and ordered her a cardiac diet lunch tray. Also updated pt on room status. Diogenes had called to check and charge advised she would check on status of rooms and call us back.
--- NOTE | 2021-09-27 13:12 | PC.NURSE ---
report called to russel piña on second floor. Will transport pt to assigned room via stretcher
--- NOTE | 2021-09-27 13:14 | PC.NURSE ---
lunch tray provided to pt
--- NOTE | 2021-09-27 13:22 | PC.NURSE ---
pt being transported to the floor via stretcher by agnes rn
--- NOTE | 2021-09-27 13:22 | HMH.CNCARD ---
History of Present Illness Consult date: 09/27/21 Requesting physician: Matt Malave Consult reason: hypertension Chief complaint: HTN urgency Additional Medical History:: 1. Chronic atrial fibrillation A. Intolerant of anticoagulation due to recurrent GI bleed x3 of unknown etiology 2. Hypertension 3. Tobacco use 4. Diabetes mellitus type 2 5. History of right-sided lung cancer status post surgery, date unknown 6. Anxiety/depression 7. History of congestive heart failure 8. Hypothyroidism 9. Hyperlipidemia History of present illness: Patient states that her blood pressure is high today. She does not know if she takes any sort of blood pressure medication. Patient initially stated that she was on medication for blood pressure, then states that she does not know whether she takes her blood pressure medication or not. She says I am on a lot of medications, I do not know what all of them are . She complains of a frontal headache for 2 days. She is also had some cough and congestion. She saw her primary care provider 2 days ago for that as well. Denies fever. Denies chest pain. She also states I have congestive heart failure . She has atrial fibrillation. She states she is not anticoagulated. She stopped Eliquis because she was bleeding from the bowels. She says she does not take aspirin. The above per Dr. Velázquez Patient claims history of congestive heart failure but denies any history of coronary artery disease. As noted above she is unsure of her medications. She denies any increase in salt intake recently. [facility] History Medical History: Reports:: Anxiety, Arrhythmia, Atherosclerotic Heart Disease, Atrial Fibrillation, Cancer, Congestive Heart Failure, Depression, Diabetes Mellitus Type 2, Renal Insufficiency Denies:: Diabetes Mellitus Type 1, MRSA *Have you ever received a pneumonia vaccine?: Yes *Have you received a flu vaccine this season?: Yes Other Medical History: Reports: Arthritis Other Surgeries: Yes: Hysterectomy-Total Amputation: No Fractures: No - *Social History Smoking Status: Current every day smoker Tobacco Type: cigarettes # Packs/Day (cigarettes): 1 Alcohol Intake: never *Occupational Status:: other Housing: apartment Household Members: none *Travel in the last 8 weeks: Inside the [facility] - Psychiatric History Pschychiatric History:: Reports:: Anxiety, Depression Family Hx:: Diabetes, Hypertension, Other Meds Home Medications Medication Instructions Recorded Confirmed Type acetaminophen 300 mg-codeine 30 mg 1 tab PO TID PRN #30 tab 09/25/21 09/27/21 Rx tablet atorvastatin 80 mg tablet 80 mg PO DAILY #90 tab 09/25/21 09/27/21 Rx clonazepam 0.5 mg tablet 0.5 mg PO DAILY #30 tab 09/25/21 09/27/21 Rx diltiazem HCl 120 mg tablet 120 mg PO TID #90 tab 09/25/21 09/27/21 Rx gabapentin 600 mg tablet 600 mg PO Q8H PRN #90 tab 09/25/21 09/27/21 Rx ipratropium 0.5 mg-albuterol 3 mg 3 ml INHALATION QID #180 ml 09/25/21 09/27/21 Rx (2.5 mg base)/3 mL nebulization soln montelukast 10 mg tablet 10 mg PO DAILY #90 tab 09/25/21 09/27/21 Rx nitroglycerin 0.4 mg sublingual 0.4 mg SL Q5-15M PRN #14 tab 09/25/21 09/27/21 Rx tablet pantoprazole 40 mg tablet,delayed 40 mg PO DAILY #90 tab 09/25/21 09/27/21 Rx release paroxetine HCl 40 mg tablet 40 mg PO DIRECTED #90 tab 09/25/21 09/27/21 Rx quetiapine 50 mg tablet 50 mg PO HS #90 tab 09/25/21 09/27/21 Rx Furosemide [Furosemide 20mg Tab*] 20 mg PO DAILY 09/27/21 09/27/21 History Levothyroxine Sodium [Synthroid 25 mcg PO DAILY 09/27/21 09/27/21 History 25mcg (0.025mg) tablet] Magnesium Oxide [Magnesium] 400 mg PO DAILY 09/27/21 09/27/21 History Allergies Allergy/AdvReac Type Severity Reaction Status Date / Time Sulfa (Sulfonamide Allergy Intermediate I-HIVES Verified 09/25/21 10:04 Antibiotics) [SULFA (SULFONAMIDE ANTIBIOTICS)] Exam Vital signs and Labs for Last 24 Hours: Temp Pulse Resp BP
--- NOTE | 2021-09-27 13:26 | PC.NURSE ---
Pt arrived to the floor at this time
--- NOTE | 2021-09-27 13:32 | CA_ITS ---
FINAL REPORT CLINICAL HISTORY: HTN,OBESITY,DM,HLD FINDINGS: Aorta velocity: 86 cm/sec Right kidney: 11.1 cm. A cyst is present. Right intrarenal RI: 0.53 Right renal artery velocity: 135 cm/sec. Right RAR (Renal artery-Aortic Ratio): 1.57 Left Kidney: 9.1 cm. A cyst is present. Left intrarenal RI: 0.73 Left renal artery velocity: 107 cm/sec. Left RAR (Renal Artery-Aortic Ratio): 1.24 IMPRESSION: No evidence of significant renal artery stenosis. CT angiogram or postcontrast MR angiogram would be more sensitive for evaluation of possible renal artery stenosis. Reviewed, Interpreted and Dictated by Washington Ramírez III, MD Transcribed by Mario Cooper Authenticated and [facility]
--- NOTE | 2021-09-27 15:27 | P.CONPHA_ITS ---
[facility] Pharmacy VTE Monitoring - Patient Demographics Admission date: 09/27/21 Report Date: 09/27/21 Time: 15:27 Allergies/Adverse Reactions: Patient Allergies Sulfa (Sulfonamide Antibiotics) [SULFA (SULFONAMIDE ANTIBIOTICS)] Allergy (Intermediate, Verified 09/25/21 10:04) I-HIVES Height: 1.68 m Weight: 79.18 kg Patient Problems: Current Active Problems Hypomagnesemia (Acute) Chronic a-fib (Acute) Hypertensive emergency (Acute) Congestive heart failure (Acute) Hypokalemia (Acute) Diabetes (Acute) Hyperlipidemia associated with type 2 diabetes mellitus (Acute) History of lung cancer (Acute) - VTE Risk Labs: VTE Related Lab Results Hgb 14.8 g/dL (12.2-16.2) 09/27/21 07:55 Hct 44.5 % (37.0-47.0) 09/27/21 07:55 Plt Count 332 K/mm3 (142-424) 09/27/21 07:55 BUN 15 mg/dl (7-17) 09/27/21 07:55 Creatinine 0.80 mg/dl (0.52-1.04) 09/27/21 07:55 Estimated Creat Clear 69 mL/min (50-200) 09/27/21 07:55 VTE Risk Level: Very Low Risk - Prophylaxis VTE Prophylaxis Ordered?: Yes Types of VTE Prophylaxis: TEDS Knee High Location of Applied Device: Bilateral Lower Extremeties
--- NOTE | 2021-09-27 15:28 | HMH.PHAINT ---
MEDICATION RECONCILIATION COMPLETED ON PATIENT USING EXTERNAL FILL HISTORY FROM PHARMACY. -MIRNA LEYVA, LESLIED
--- NOTE | 2021-09-27 17:52 | PC.NURSE ---
1335- Patient arrived to floor, BP 185/107, HR 110, nitroglycerin drip infusing at 40mcg 1348- Bisoprolol 10mg given per MD order 1445- BP 150/64, HR 96, nitroglycerin drip decreased to 30mcg 1500- BP 139/82, HR 86, nitroglycerin drip decreased to 20mcg 1515- BP 144/76, HR 86, nitroglycerin drip decreased to 10mcg 1530- BP 144/70, HR 95, nitroglycerin drip stopped at this time 1715- BP began to increase currently, 158/121, nitroglycerin drip restarted at 20mcg 1730- BP 184/109, HR 108 nitroglycerin drip increased to 30mcg
--- NOTE | 2021-09-27 17:56 | PC.NURSE ---
Patient admitted this afternoon with hypertensive emergency and CHF, patient was diuresed in ER, remains on RA, nitroglycerin drip had been titrated off but patient became hypertensive again and it was restarted, currently infusing at 30mcg, patient denies any CP or SOA, afib per telemetry, alert and oriented x4, abd soft and nontender, active bowel sounds in all quads, voids per BSC without difficulty, peripheral pulses 2+.
--- NOTE | 2021-09-27 18:16 | HMH.HP ---
*Admission Date: 09/27/21 *Chief complaint: hypertensive crisis *History of present illness: Is a 70-year-old white female, known from the practice and recently seen. She presented to the emergency room this morning elevated blood pressure. On admission she was 204/108 and reached an apex of 223/120. Cardiology was consulted. Patient was initially used on Nitropaste, changed to a nitro drip. She received IV Lasix. EKG showed atrial fibrillation with negative troponins. Brain natruretic peptide was elevated. Has a history of congestive heart failure, was stated to see cardiology 2 days prior to her admission did not keep the appointment. Patient is a poor historian, I suspect compliance her regimen is suboptimal. She was seen Friday in the office with complaints of congestion. He was given 80 mg of IM Depo-Medrol. She relays that she has had this previously without adverse side effects. No artery duplex was performed, showing no significant stenotic lesions. Chest x-ray showed mild bibasilar scarring, stable Cardiac echo was performed, report pending at the time of dictation. Patient was wheezing on Friday, this is her baseline. She has a history of heavy tobacco consumption. [facility] History Medical History: Reports:: Anxiety, Arrhythmia, Atherosclerotic Heart Disease, Atrial Fibrillation, Cancer (lung), Congestive Heart Failure, Depression, Diabetes Mellitus Type 2, Hypertension, Renal Insufficiency Denies:: Diabetes Mellitus Type 1, MRSA *Have you ever received a pneumonia vaccine?: Yes *Have you received a flu vaccine this season?: Yes Other Medical History: Reports: Arthritis Other Surgeries: Yes: Hysterectomy-Total Amputation: No Fractures: No - *Social History Last grade of school completed: 7th or 8th Smoking Status: Current every day smoker Tobacco Type: cigarettes # Packs/Day (cigarettes): 1 Alcohol Intake: never *Occupational Status:: retired Housing: house Household Members: children *Travel in the last 8 weeks: Inside the [place] - Psychiatric History Pschychiatric History:: Reports:: Anxiety, Depression Family Hx:: Cancer, Diabetes, Heart Attack Review of Systems - Constitutional Reports headache(s), Reports weakness - Eyes Reports blurry vision, Denies loss of vision - ENT Denies abnormal hearing - *Cardiovascular Reports shortness of breath, Denies chest pain, Denies fainting - *Respiratory Reports chest congestion, Reports shortness of breath with activity, Denies coughing up blood - *Gastrointestinal Denies abdominal pain - *Genitourinary Denies painful urination - *Musculoskeletal Reports muscle weakness - Integumentary/Breasts Denies yellowing of the skin - *Neurologic Reports dizziness, Reports headache(s), Denies numbness, Denies weakness - Psychiatric Reports lack of enjoyment - Endocrine Denies excessive sweating - Hematologic/Lymphatic Reports easy bleeding - Allergic/Immunologic Reports wheezing, Denies hives Meds Home Medications Medication Instructions Recorded Confirmed Type acetaminophen 300 mg-codeine 30 mg 1 tab PO TID PRN #30 tab 09/25/21 09/27/21 Rx tablet atorvastatin 80 mg tablet 80 mg PO DAILY #90 tab 09/25/21 09/27/21 Rx clonazepam 0.5 mg tablet 0.5 mg PO DAILY #30 tab 09/25/21 09/27/21 Rx diltiazem HCl 120 mg tablet 120 mg PO TID #90 tab 09/25/21 09/27/21 Rx gabapentin 600 mg tablet 600 mg PO Q8H PRN #90 tab 09/25/21 09/27/21 Rx ipratropium 0.5 mg-albuterol 3 mg 3 ml INHALATION QID #180 ml 09/25/21 09/27/21 Rx (2.5 mg base)/3 mL nebulization soln montelukast 10 mg tablet 10 mg PO DAILY #90 tab 09/25/21 09/27/21 Rx nitroglycerin 0.4 mg sublingual 0.4 mg SL Q5-15M PRN #14 tab 09/25/21 09/27/21 Rx tablet pantoprazole 40 mg tablet,delayed 40 mg PO DAILY #90 tab 09/25/21 09/27/21 Rx release paroxetine HCl 40 mg tablet 40 mg PO DIRECTED #90 tab 09/25/21 09/27/21 Rx quetiapine 50 mg tablet 50 mg PO HS #90 tab
--- NOTE | 2021-09-27 21:54 | PC.NURSE ---
patient bp has been consistently within goal pressure for last hour turned off at this time.
--- NOTE | 2021-09-27 23:25 | PC.NURSE ---
Addendum entered by Nereyda Abdalla RN 09/28/21 03:09: at 0120 noted patient bp had sudden drop. turned gtt down and then off. Addendum entered by Nereyda Abdalla RN 09/28/21 00:17: increased nitro gtt to 20mcg/min Original Note: turned nitro drip back on to 10mcg/min
[2021-09-28] VITALS (16 sets, daily range): BP systolic 105–187; BP diastolic 56–112; PULSE 66–100; RESP 16–20; TEMP 36.5–36.7; O2SAT 90–98; BMI 28.6
--- NOTE | 2021-09-28 04:53 | PC.NURSE ---
PATIENT HAS DONE WELL THIS SHIFT. TURNED OFF NITRO DRIP AT ABOUT 0120 AND THIS HAS REMAINED OFF. NO COMPLAINTS. REMAINS AFLUTTER AFIB ON THE MONITOR. TAKES O2 ON AND OFF. NO SIGNS SWELLING. RINGS OUT NEEDED. HAS BEEN USING BSC INDEPENDENTLY AND WITHOUT DIFFICULTY. NO NEEDS AT THIS TIME.
--- NOTE | 2021-09-28 06:50 | PC.NURSE ---
patient resting with eyes closed, O2 sat 97% on 2L NC; shows no s/s of acute distress at this time. Will continue to monitor.
[2021-09-28 07:20] LABS: Hemoglobin A1C 6.4 % (4.0-6.0)
[2021-09-28 07:24] LABS: Anion Gap 10.5 mEq/L (5-15); Blood Urea Nitrogen 20 mg/dl (7-17); Calcium 9.1 mg/dl (8.4-10.2); Carbon Dioxide 30 mmol/L (22.0-30.0); Chloride 101 mmol/L (98-107); Creatinine Clearance Estimated 69 mL/min (50-200); Estimated Glomerular Filt Rate 55 ml/min (>60); GFR (African American) 67 ML/MIN (>60); Glucose 142 mg/dl (74-100); Potassium 4.5 mmoL/L (3.5-5.1); Sodium 137 mmol/L (136-145)
--- NOTE | 2021-09-28 09:33 | HMH.DCSUM ---
General - General Admission date:: 09/27/21 Discharge date: 09/28/21 HPI HPI: Is a 70-year-old white female, known from the practice and recently seen. She presented to the emergency room this morning elevated blood pressure. On admission she was 204/108 and reached an apex of 223/120. Cardiology was consulted. Patient was initially used on Nitropaste, changed to a nitro drip. She received IV Lasix. EKG showed atrial fibrillation with negative troponins. Brain natruretic peptide was elevated. Has a history of congestive heart failure, was stated to see cardiology 2 days prior to her admission did not keep the appointment. Patient is a poor historian, I suspect compliance her regimen is suboptimal. She was seen Friday in the office with complaints of congestion. He was given 80 mg of IM Depo-Medrol. She relays that she has had this previously without adverse side effects. No artery duplex was performed, showing no significant stenotic lesions. Chest x-ray showed mild bibasilar scarring, stable Cardiac echo was performed, report pending at the time of dictation. Patient was wheezing on Friday, this is her baseline. She has a history of heavy tobacco consumption. Hospital Course Hospital Course: Is a 70-year-old white female, known from the practice and recently seen. She presented to the emergency room this morning elevated blood pressure. On admission she was 204/108 and reached an apex of 223/120. Cardiology was consulted. Patient was initially used on Nitropaste, changed to a nitro drip. She received IV Lasix. EKG showed atrial fibrillation with negative troponins. Brain natruretic peptide was elevated. Has a history of congestive heart failure, was stated to see cardiology 2 days prior to her admission did not keep the appointment. Patient is a poor historian, I suspect compliance her regimen is suboptimal. She was seen Friday in the office with complaints of congestion. He was given 80 mg of IM Depo-Medrol. She relays that she has had this previously without adverse side effects. Chest x-ray revealed bibasilar scarring that is stable Renal duplex revealed No evidence of significant renal artery stenosis. Cardiology has seen and recommends: Assessment and Plan for all problems:: 1. Hypertensive urgency felt related to medication noncompliance. Blood pressure significantly improved with bisoprolol 10 mg daily and starting Entresto twice daily. Renal duplex showed no significant renal artery stenosis. Echocardiogram showed EF of 45-50% with no significant valve disease. Patient could be discharged home later today with follow-up in our office in 1 to 2 weeks. Umeshay for discharge from cardiology standpoint Home medication recommendations: bisoprolol 10 mg daily Entresto 24/26 mg daily Atorvastatin 80 mg daily Lasix 20 mg daily Potassium 10 mEq daily Magnesium oxide 400 mg daily Stop diltiazem due to lower extremity edema Follow-up in our office in 1 to 2 weeks. 1. Hypertensive urgency/emergency for which patient has been placed on IV nitroglycerin with some mild improvement in blood pressure. Echocardiogram has been obtained showing a EF of about 50% with moderate mitral regurgitation on preliminary reading. We will go ahead and start bisoprolol 10 mg daily and try to wean down nitroglycerin drip as able. Check renal duplex for JAZLYN. 2. Chronic atrial fibrillation with rate currently controlled. No anticoagulation due to history of GI bleed. CHADS-VASC score of 5 (age, sex, HTN, DM, CHF). 3. History of congestive heart failure with elevated BNP this admission but with no chest x-ray evidence of edema, likely diastolic in nature. Patient has received 2 doses of IV Lasix in the ER. We will continue to monitor intake and output and adjust accordingly. Start entresto 24/26 mg BID. 4. Diabetes mellitus, per PCP. Last Hgb A1c was 6.0. 5. Hyperlipidemia, continue statin therap
--- NOTE | 2021-09-28 10:27 | PC.NURSE ---
Report given to Adria Dinero RN who assumes care of patient at this time.
--- NOTE | 2021-09-28 10:32 | HMH.PNCARD ---
Subjective Date: 09/28/21 Time: 10:32 Principal diagnosis: HTN emergency Interval history: 70-year-old white female in bed in no acute distress. Headache is resolved with improvement in blood pressure. Patient was able to get off of the IV nitroglycerin yesterday after oral medications were started. I suspect that she has not been taking her medications at home as directed. Exam Vital signs and Labs for Last 24 Hours: Temp Pulse Resp BP Pulse Ox 97.7 F 79 18 139/80 95 09/28/21 08:00 09/28/21 09:36 09/28/21 08:00 09/28/21 08:00 09/28/21 09:36 Laboratory Results - last 24 hr 09/28/21 06:20: Hemoglobin A1c 6.4 H 09/28/21 06:20: Sodium 137, Potassium 4.5 D, Chloride 101, Carbon Dioxide 30, Anion Gap 10.5, BUN 20 H D, Creatinine 1.00 D, Estimated Creat Clear 69, Estimated GFR 55 L, Est GFR ( Amer) 67 D, Glucose 142 H, Calcium 9.1 I & O for Last 24 hours: Intake & Output 09/25/21 09/26/21 09/27/21 09/28/21 11:59 11:59 11:59 11:59 Intake Total 962 / 962 Output Total 1175 / 1175 Balance -213 / -213 Weight 180 lb 178 lb 5 oz - Constitutional no acute distress - *Routine Respiratory Exam Present: CTA bilaterally - *Routine Cardiovascular Exam Present: RRR Progress Note: A&P (1) Hypertensive emergency Status: Acute (2) Congestive heart failure Status: Acute (3) Chronic a-fib Status: Acute (4) Hypokalemia Status: Acute (5) Hypomagnesemia Status: Acute (6) Diabetes Status: Acute (7) Hyperlipidemia associated with type 2 diabetes mellitus Status: Acute (8) History of lung cancer Status: Acute Assessment and Plan for All Diagnoses:: 1. Hypertensive urgency felt related to medication noncompliance. Blood pressure significantly improved with bisoprolol 10 mg daily and starting Entresto twice daily. Renal duplex showed no significant renal artery stenosis. Echocardiogram showed EF of 45-50% with no significant valve disease. Patient could be discharged home later today with follow-up in our office in 1 to 2 weeks. Okay for discharge from cardiology standpoint Home medication recommendations: bisoprolol 10 mg daily Entresto 24/26 mg daily Atorvastatin 80 mg daily Lasix 20 mg daily Potassium 10 mEq daily Magnesium oxide 400 mg daily Stop diltiazem due to lower extremity edema Follow-up in our office in 1 to 2 weeks.
--- NOTE | 2021-10-04 14:45 | CARE MANAGER ---
Attempted x3 to contact patient for follow up from hospital discharge. No VM option.
== END 2021-09-28 11:45 | disposition home or self-care (01) | DRG 291 ==
LOC: ER 10:12 → 2ND 10:33
PROVIDERS: Physician Assistant; Admitting Provider Family Medicine; Emergency Provider Emergency Medicine; PCP Family Medicine; Visit Provider Family Medicine
DX: I11.0 Hypertensive heart disease with heart failure (principal); I50.33 Acute on chronic diastolic (congestive) heart failure; I16.1 Hypertensive emergency; I48.20 Chronic atrial fibrillation, unspecified; F41.9 Anxiety disorder, unspecified; F32.A Depression, unspecified; E78.5 Hyperlipidemia, unspecified; F17.210 Nicotine dependence, cigarettes, uncomplicated; E83.42 Hypomagnesemia; Z85.118 Personal history of other malignant neoplasm of bronchus and lung; E87.6 Hypokalemia; Z91.14 Patient's other noncompliance with medication regimen; E03.9 Hypothyroidism, unspecified; E11.69 Type 2 diabetes mellitus with other specified complication
CPT/HCPCS: 36415; 71045; 80048; 80053; 81001; 83036; 83735; 83880; 84484; 85025; 93005; 93306; 93976; 94640; 94761; 99291; C9803; J3475; U0003; U0005

== ENCOUNTER 2021-09-30 21:05 | Emergency (ER) | payer MEDICARE, MEDICAID, SELFPAY ==
[2021-09-30 20:59] VITALS: BP 106/58; PULSE 70; RESP 18; TEMP 36.4; O2SAT 98; BMI 27.4
--- NOTE | 2021-09-30 21:05 | XR_ITS ---
PROCEDURE INFORMATION: Exam: XR Chest Exam date and time: 09/30/2021 9:48 PM Age: 70 years old Clinical indication: Shortness of breath; Additional info: SOA TECHNIQUE: Imaging protocol: Radiologic exam of the chest. Views: 1 view. COMPARISON: CR XR CHEST PORTABLE 09/27/2021 7:58 AM FINDINGS: Lungs: In the lung bases there is airspace disease concerning for atelectasis and pneumonia. Underlying emphysema. Pleural spaces: Unremarkable. No pleural effusion. No pneumothorax. Heart/Mediastinum: Unremarkable. No cardiomegaly. Bones/joints: Unremarkable. IMPRESSION: Atelectasis versus pneumonia in the lung bases.
--- NOTE | 2021-09-30 21:07 | ECG_ITS ---
APPROVED REPORT Exam: Resting ECG HR:77 bpm ECG Measurements Heart Rate 77 AXES QRSd 77 QRS 61 QT 375 T 49 QTc 407 Conclusion ATRIAL FIBRILLATION ABNORMAL RHYTHM ECG UNCONFIRMED REPORT Electronically signed by : Dashawn Cedillo MD 10/01/2021 13:58:56
[2021-09-30 21:15] LABS: Coronavirus 19, PCR Not Detected (NotDetected); Influenza A, PCR Not Detected (NotDetected); Influenza B, PCR Not Detected (NotDetected)
[2021-09-30 21:16] VITALS: PULSE 88
[2021-09-30 21:17] VITALS: PULSE 87
[2021-09-30 21:27] LABS: Anion Gap 8.8 mEq/L (5-15); Blood Urea Nitrogen 35 mg/dl (7-17); Carbon Dioxide 29 mmol/L (22.0-30.0); Chloride 99 mmol/L (98-107); Creatinine Clearance Estimated 55 mL/min (50-200); Estimated Glomerular Filt Rate 45 ml/min (>60); GFR (African American) 54 ML/MIN (>60); Glucose 108 mg/dl (74-100); Potassium 3.8 mmoL/L (3.5-5.1); Sodium 133 mmol/L (136-145)
[2021-09-30 21:32] LABS: C-Reactive Protein 1.7 mg/L (0-4)
[2021-09-30 21:42] LABS: Troponin I < 0.01 ng/ml (0.00-0.034)
[2021-09-30 21:46] LABS: Procalcitonin 0.072 ng/mL (0.0-2.0); T4 (Thyroxine) 7.3 ug/dl (5.53-11.0)
[2021-09-30 22:00] LABS: Thyroid Stimulating Hormone 1.26 uIU/mL (0.465-4.68)
[2021-09-30 22:10] LABS: Erythrocyte Sedimentation Rate 40 mm/hr (0-30)
[2021-09-30 22:13] LABS: Basophils # 0.1 K/mm3 (0-0.2); Basophils % 0.8 % (0.1-2.0); Eosinophils # 0.1 K/mm3 (0.0-0.4); Eosinophils % 0.7 % (0.1-12.0); Hematocrit 42.5 % (37.0-47.0); Hemoglobin 13.7 g/dL (12.2-16.2); Lymphocytes # 2.7 K/mm3 (0.7-4.5); Lymphocytes % 24.4 % (10-50); Mean Corpuscular HGB Conc 32.2 g/dL (31.8-35.4); Mean Corpuscular Volume 93.4 fl (81-99); Mean Platelet Volume 9.8 fl (7.4-10.4); Monocytes # 0.7 K/mm3 (0.1-1.0); Monocytes % 6.4 % (1.7-9.3); Neutrophils # 7.5 K/mm3 (1.8-7.8); Neutrophils % 67.6 % (37.0-80.0); Platelet Count 242 K/mm3 (142-424); Red Blood Count 4.55 M/mm3 (4.20-5.40); Red Cell Distribution Width 14.7 % (11.5-17.5)
--- NOTE | 2021-09-30 23:08 | HMH.EDWEAK ---
ED Disposition Clinical Impression: Weakness Disposition: Home, Self-Care Condition on Discharge: Good Instructions: DI for Muscle Weakness Additional Instructions: fluids and see pcp for follow up Referrals: Matt Malave MD [Primary Care Provider] - - Critical Care Critical Care Time: No Attestation: On 09/30/21, the high probability of a clinically significant, sudden or life threatening deterioration of the following system(s) required my full and direct attention, intervention and personal management. The time I documented below is in addition to time spent performing reported procedures but includes the following listed in this critical care notation. Medical Decision Making - Medical Records Medical records reviewed: Yes: I reviewed the patient's medical records. - Davide Inquiry Pt receiving controlled substance: No Vital Signs: 09/30/21 20:59 09/30/21 21:16 09/30/21 21:17 Temperature 97.6 F Temperature Source Oral Pulse Rate 88 87 Pulse Rate [Apical] 70 Respiratory Rate 18 Blood Pressure [Right Arm] 106/58 L Blood Pressure Mean [Right Arm] 74 Blood Pressure Source [Right Arm] Automatic Cuff Blood Pressure Position [Right Arm] Sitting 02 Sat by Pulse Oximetry 98 Oxygen Delivery Method Nasal Cannula Oxygen Flow Rate (LPM) 2 - Lab Data Lab results reviewed: Yes: I reviewed the patient's lab results. Lab Results 09/30/21 21:00: WBC 11.0 H, RBC 4.55, Hgb 13.7, Hct 42.5, MCV 93.4, MCH 30.0, MCHC 32.2, RDW 14.7, Plt Count 242 D, MPV 9.8, Neut % (Auto) 67.6, Lymph % (Auto) 24.4, [place] % (Auto) 6.4, Eos % (Auto) 0.7, Baso % (Auto) 0.8, Neut # (Auto) 7.5, Lymph # (Auto) 2.7, [place] # (Auto) 0.7, Eos # (Auto) 0.1, Baso # (Auto) 0.1, ESR 40 H 09/30/21 21:00: Sodium 133 L, Potassium 3.8, Chloride 99, Carbon Dioxide 29, Anion Gap 8.8, BUN 35 H D, Creatinine 1.20 H, Estimated Creat Clear 55, Estimated GFR 45 L, Est GFR ( Amer) 54 L, Glucose 108 H, Calcium 8.0 L, Troponin I < 0.01, C-Reactive Protein 1.7, Procalcitonin 0.072, TSH 1.26, Thyroxine (T4) 7.3 09/30/21 21:00: SARS-CoV-2 (PCR) Not detected, Influenza A Untype (PCR) Not detected, Influenza Type B (PCR) Not detected Result diagrams: 09/30/21 21:00 09/30/21 21:00 Orders (Tests/Meds): ED MEDICATIONS Discontinued Medications Generic Name Dose Route Start Last Admin Trade Name Freq PRN Reason Stop Dose Admin Albuterol/Ipratropium 3 ml 09/30/21 21:07 09/30/21 21:16 Ipratropium/Albuterol 3 Ml Neb IH 09/30/21 21:08 3 ml ONCE ONE Administration ORDERS Category Date Time Status Troponin I Q3H Lab 10/01/21 00:15 Ordered Troponin I Q3H Lab 10/01/21 03:15 Ordered - Radiology Data #1 Image(s): Chest Image Reviewed: Yes I have reviewed radiologist's interpretation Preliminary Findings: Normal/NAD - ECG Data Tracing #1 Arrhythmias present: afib Ischemic changes: non-specific ST-T wave changes - ANKIT Score for Non-Stemi Age of Patient: 60-69 years old Heart Rate: 70-89 bpm Systolic Blood Pressure: 100-119 mmHg Serum Creatinine: 1.20-1.59 mg/dl CHF Killip Class: I-No CHF Other Risk Factors: None Non-Stemi Risk Score: 120 Medical Decision Narrative: stable exam and labs with stable vital signs - will ask to see card and pcp as op Weakness HPI - General Chief complaint: Weakness Stated complaint: weakness/dizzy Time Seen by Provider: 09/30/21 23:08 Mode of Arrival: EMS Source of Information: Patient, EMS, Medical Record Limitations: No Limitations Description of Symptoms (Recalled from ER Triage Doc. by RN): Pt c/o hypotension, states that her son took her bp earlier and it was low but she doesnt know what it was. States that she began a new blood pressure pill 2 days ago and since then she has been weak and had hypotension. Also states that yesterday she was soa and is some today as well. Does have copd and smokes and wears 2l of oxygen at home as needed. - History
--- NOTE | 2021-09-30 23:15 | PC.NURSE ---
PC from son requesting information on patient, patient gave verbal permission to give into to son when I picked up the phone the patients son was no longer on the line
[2021-10-01 00:04] VITALS: BP 105/62; PULSE 81; RESP 16; TEMP 36.8; O2SAT 98
== END 2021-10-01 00:08 | disposition home or self-care (01) ==
PROVIDERS: Emergency Provider Emergency Medicine; PCP Family Medicine
DX: R53.1 Weakness (principal); Z79.899 Other long term (current) drug therapy; Z88.2 Allergy status to sulfonamides; I25.10 Atherosclerotic heart disease of native coronary artery without angina pectoris; I11.0 Hypertensive heart disease with heart failure; E11.9 Type 2 diabetes mellitus without complications; I50.9 Heart failure, unspecified; I48.91 Unspecified atrial fibrillation; M19.90 Unspecified osteoarthritis, unspecified site; N28.9 Disorder of kidney and ureter, unspecified; I49.9 Cardiac arrhythmia, unspecified; Z85.118 Personal history of other malignant neoplasm of bronchus and lung; Z72.0 Tobacco use
CPT/HCPCS: 71045; 80048; 84145; 84436; 84443; 84484; 85025; 85651; 86140; 93005; 94640; 99283; C9803; U0003; U0005

== ENCOUNTER 2021-10-05 14:45 | Emergency (ER) | payer MEDICARE, MEDICAID, SELFPAY ==
[2021-10-05] VITALS (8 sets, daily range): BP systolic 76–107; BP diastolic 44–60; PULSE 61–74; RESP 14–17; TEMP 36.4–36.5; O2SAT 98–100; BMI 27.4
--- NOTE | 2021-10-05 14:46 | PC.NURSE ---
1446 AWARE OF HYPOTENSION, ORDERS FOR IVF BOLUS R/V
--- NOTE | 2021-10-05 14:46 | PC.NURSE ---
1443 ED MD AT BEDSIDE FOR EVALUATION
--- NOTE | 2021-10-05 14:48 | HMH.EDOD ---
ED Disposition Clinical Impression: Opiate or related narcotic overdose Qualifiers: Encounter type: initial encounter Injury intent: accidental or unintentional Qualified Code(s): T40.601A - Poisoning by unspecified narcotics, accidental (unintentional), initial encounter Disposition: Home, Self-Care Condition on Discharge: Fair Instructions: DI for Drug Overdose in Adults Additional Instructions: Take your medications only as prescribed. Follow-up with your primary care doctor in about 3 to 4 days if you do not feel better. Return to the emergency department immediately if you feel worse in any way. Referrals: Matt Malave MD [Primary Care Provider] - - Critical Care Critical Care Time: No Attestation: On , the high probability of a clinically significant, sudden or life threatening deterioration of the following system(s) required my full and direct attention, intervention and personal management. The time I documented below is in addition to time spent performing reported procedures but includes the following listed in this critical care notation. Medical Decision Making - Medical Records Medical records reviewed: Yes: I reviewed the patient's medical records. - Davide Inquiry Pt receiving controlled substance: No Vital Signs: 10/05/21 14:46 10/05/21 15:26 10/05/21 15:30 Temperature 97.7 F Temperature Source Oral Pulse Rate 61 64 Pulse Rate [Brachial] 70 Respiratory Rate 14 15 16 Blood Pressure 82/44 L 87/49 L Blood Pressure [Right Arm] 76/53 L Blood Pressure Mean 56 63 Blood Pressure Mean [Right Arm] 60 Blood Pressure Source [Right Arm] Automatic Cuff Blood Pressure Position [Right Arm] Sitting 02 Sat by Pulse Oximetry 99 100 100 Oxygen Delivery Method Nasal Cannula Nasal Cannula Nasal Cannula Oxygen Flow Rate (LPM) 2 2 2 10/05/21 15:45 10/05/21 16:00 Temperature Temperature Source Pulse Rate 64 64 Pulse Rate [Brachial] Respiratory Rate 15 16 Blood Pressure 102/47 L 102/55 L Blood Pressure [Right Arm] Blood Pressure Mean 57 65 Blood Pressure Mean [Right Arm] Blood Pressure Source [Right Arm] Blood Pressure Position [Right Arm] 02 Sat by Pulse Oximetry 100 100 Oxygen Delivery Method Nasal Cannula Nasal Cannula Oxygen Flow Rate (LPM) 2 2 - Lab Data Lab Results 10/05/21 14:50: WBC 10.8, RBC 4.76, Hgb 13.7, Hct 44.0, MCV 92.5, MCH 28.9, MCHC 31.2 L, RDW 14.7, Plt Count 261, MPV 9.6, Neut % (Auto) 72.4, Lymph % (Auto) 19.0, Carroll % (Auto) 6.6, Eos % (Auto) 0.6, Baso % (Auto) 1.3, Neut # (Auto) 7.8, Lymph # (Auto) 2.0, Carroll # (Auto) 0.7, Eos # (Auto) 0.1, Baso # (Auto) 0.1 10/05/21 14:50: Sodium 133 L, Potassium 3.5, Chloride 92 L, Carbon Dioxide 36 H, Anion Gap 8.5, BUN 25 H, Creatinine 1.60 H, Estimated Creat Clear 41, Estimated GFR 32 L, Est GFR ( Amer) 39 L, Glucose 140 H, Calcium 9.2, Troponin I < 0.01 Result diagrams: 10/05/21 14:50 10/05/21 14:50 Orders (Tests/Meds): ED MEDICATIONS Generic Name Dose Route Start Last Admin Trade Name Freq PRN Reason Stop Dose Admin Sodium Chloride 10 ml 10/05/21 15:00 Sodium Chloride 0.9% 10ml Flush Syringe IV 11/04/21 14:59 NEEDED PRN Maintain IV Site Discontinued Medications Generic Name Dose Route Start Last Admin Trade Name Freq PRN Reason Stop Dose Admin Sodium Chloride 1,000 mls @ 999 mls/hr 10/05/21 15:00 10/05/21 14:59 Sod Chlor 0.9% 1000ml Bag IV 10/05/21 16:00 999 mls/hr .Q1H1M CARLO Administration ORDERS Category Date Time Status Drug Screen,Urine Stat Lab 10/05/21 15:00 Ordered Troponin I Q3H Lab 10/05/21 18:15 Ordered Troponin I Q3H Lab 10/05/21 21:15 Ordered Urinalysis and Microscopic Stat Lab 10/05/21 15:00 Ordered - ECG Data Tracing #1 I reviewed this ECG and interpreted as documented below: The patient is ECG was performed at 1514 p.m. It shows atrial fibrillation with a ventricular rate of 61 bpm. Otherwise the ECG is normal
--- NOTE | 2021-10-05 15:00 | XR_ITS ---
FINAL REPORT CLINICAL HISTORY: GENERAL WEAKNESS FINDINGS: SINGLE VIEW CHEST There is moderate cardiomegaly. The mediastinum is unremarkable. There are chronic changes in both lungs. There is no pneumothorax. There are surgical clips in the right hilum. IMPRESSION: No acute process. Reviewed, Interpreted and Dictated by Kike Dietz MD Transcribed by Guillermina Roca Authenticated and [facility]
--- NOTE | 2021-10-05 15:13 | ECG_ITS ---
APPROVED REPORT Exam: Resting ECG HR:61 bpm ECG Measurements Heart Rate 61 AXES QRSd 80 QRS 76 QT 433 T 72 QTc 437 Conclusion ATRIAL FIBRILLATION ABNORMAL RHYTHM ECG UNCONFIRMED REPORT Electronically signed by : Dashawn Cedillo MD 10/07/2021 16:29:03
[2021-10-05 15:34] LABS: Basophils # 0.1 K/mm3 (0-0.2); Basophils % 1.3 % (0.1-2.0); Eosinophils # 0.1 K/mm3 (0.0-0.4); Eosinophils % 0.6 % (0.1-12.0); Hemoglobin 13.7 g/dL (12.2-16.2); Mean Corpuscular HGB Conc 31.2 g/dL (31.8-35.4); Mean Corpuscular Hemoglobin 28.9 pg (27.0-31.2); Mean Corpuscular Volume 92.5 fl (81-99); Mean Platelet Volume 9.6 fl (7.4-10.4); Monocytes # 0.7 K/mm3 (0.1-1.0); Monocytes % 6.6 % (1.7-9.3); Neutrophils # 7.8 K/mm3 (1.8-7.8); Neutrophils % 72.4 % (37.0-80.0); Platelet Count 261 K/mm3 (142-424); Red Blood Count 4.76 M/mm3 (4.20-5.40); Red Cell Distribution Width 14.7 % (11.5-17.5); White Blood Count 10.8 K/mm3 (4.8-10.8)
[2021-10-05 15:35] LABS: Chloride 92 mmol/L (98-107); Potassium 3.5 mmoL/L (3.5-5.1); Sodium 133 mmol/L (136-145)
[2021-10-05 15:38] LABS: Anion Gap 8.5 mEq/L (5-15); Blood Urea Nitrogen 25 mg/dl (7-17); Carbon Dioxide 36 mmol/L (22.0-30.0); Creatinine Clearance Estimated 41 mL/min (50-200); Estimated Glomerular Filt Rate 32 ml/min (>60); GFR (African American) 39 ML/MIN (>60)
[2021-10-05 15:39] LABS: Calcium 9.2 mg/dl (8.4-10.2); Glucose 140 mg/dl (74-100)
[2021-10-05 15:53] LABS: Troponin I < 0.01 ng/ml (0.00-0.034)
--- NOTE | 2021-10-05 15:53 | PC.NURSE ---
Went in to help patient up to bedside commode. Patient sat on commode and could not use the toilet. Patient was put back in bed.
--- NOTE | 2021-10-05 16:37 | PC.NURSE ---
checked on pt at this time pt resting in bed. Call light within reach. Pt reports unable to urinate at this time, pt decline in/out catheter to obtain specimen.
== END 2021-10-05 18:20 | disposition home or self-care (01) ==
PROVIDERS: Emergency Provider Emergency Medicine; PCP Family Medicine
DX: T40.601A Poisoning by unspecified narcotics, accidental (unintentional), initial encounter (principal); N28.9 Disorder of kidney and ureter, unspecified; E11.65 Type 2 diabetes mellitus with hyperglycemia; Z91.19 Patient's noncompliance with other medical treatment and regimen; Z85.118 Personal history of other malignant neoplasm of bronchus and lung; I48.91 Unspecified atrial fibrillation; I25.10 Atherosclerotic heart disease of native coronary artery without angina pectoris; I11.0 Hypertensive heart disease with heart failure; I50.9 Heart failure, unspecified; F41.9 Anxiety disorder, unspecified; F32.A Depression, unspecified; M19.90 Unspecified osteoarthritis, unspecified site
CPT/HCPCS: 71045; 80048; 84484; 85025; 93005; 96365; 99284

== ENCOUNTER 2021-10-06 13:05 | Emergency (ER) | payer MEDICARE, MEDICAID, SELFPAY ==
[2021-10-06] VITALS (7 sets, daily range): BP systolic 121–141; BP diastolic 69–93; PULSE 68–91; RESP 12–22; TEMP 36.6–36.7; O2SAT 87–100; BMI 31.1
--- NOTE | 2021-10-06 13:12 | HMH.EDGENADL ---
ED Disposition Clinical Impression: Weakness, Renal insufficiency, Low TSH level, Hypomagnesemia Fall Qualifiers: Encounter type: initial encounter Qualified Code(s): W19.XXXA - Unspecified fall, initial encounter Scalp contusion Qualifiers: Encounter type: initial encounter Qualified Code(s): S00.03XA - Contusion of scalp, initial encounter Cervical strain Qualifiers: Encounter type: initial encounter Qualified Code(s): S16.1XXA - Strain of muscle, fascia and tendon at neck level, initial encounter Disposition: Home, Self-Care Condition on Discharge: Good Instructions: DI for Muscle Weakness, How to Prevent Falls, DI for Closed Head Injury, DI for Hypomagnesemia Additional Instructions: Do not take your dose of Lasix tomorrow. See Dr. Malave on Friday as scheduled. Have Dr. Malave review your labs from your emergency department visit today and make adjustments to your medications. Magnesium oxide as prescribed. Prescriptions: Magnesium Oxide 400 mg PO DAILY #7 tab Transmission Status: Pending to [facility] Referrals: Matt Malave MD [Primary Care Provider] - - Critical Care Critical Care Time: No Attestation: On , the high probability of a clinically significant, sudden or life threatening deterioration of the following system(s) required my full and direct attention, intervention and personal management. The time I documented below is in addition to time spent performing reported procedures but includes the following listed in this critical care notation. Medical Decision Making - Medical Records Medical records reviewed: Yes: I reviewed the patient's medical records. MR Comment: Reviewed ED note form 10/06/21, dx opiate OD. EMS was called for altered mental status and patient reportedly responded to Narcan. She did not provide a urine sample in the emergency department, there is no toxicology result. - Davide Inquiry Pt receiving controlled substance: No Vital Signs: 10/06/21 13:06 10/06/21 13:24 10/06/21 14:10 Temperature 98.1 F Temperature Source Oral Pulse Rate 83 Pulse Rate [Radial] 91 H Respiratory Rate 22 17 Blood Pressure 132/84 Blood Pressure [Right Arm] 141/73 H Blood Pressure Mean 103 Blood Pressure Mean [Right Arm] 95 Blood Pressure Position [Right Arm] Sitting 02 Sat by Pulse Oximetry 87 L 98 100 Oxygen Delivery Method Room Air Nasal Cannula Nasal Cannula Oxygen Flow Rate (LPM) 3 3 10/06/21 14:13 10/06/21 14:42 Temperature Temperature Source Pulse Rate 87 90 Pulse Rate [Radial] Respiratory Rate 12 17 Blood Pressure 129/88 126/93 H Blood Pressure [Right Arm] Blood Pressure Mean 113 107 Blood Pressure Mean [Right Arm] Blood Pressure Position [Right Arm] 02 Sat by Pulse Oximetry 100 99 Oxygen Delivery Method Nasal Cannula Nasal Cannula Oxygen Flow Rate (LPM) 3 3 - Lab Data Lab Results 10/06/21 13:29: Specimen Source Left radial, O2 % 3 lpm nc, ABG pH 7.36, ABG pCO2 52.3 H, ABG pO2 103.6 H, ABG HCO3 28.8 H, ABG Total CO2 30.4 H, ABG O2 Saturation 98, ABG Base Excess 3.4 H, Freddie Test Acceptable 10/06/21 13:40: WBC 11.9 H, RBC 4.66, Hgb 13.9, Hct 42.7, MCV 91.7, MCH 29.7, MCHC 32.4, RDW 14.6, Plt Count 259, MPV 10.3, Neut % (Auto) 76.6, Lymph % (Auto) 15.8, Hunt % (Auto) 5.2, Eos % (Auto) 1.4, Baso % (Auto) 1.0, Neut # (Auto) 9.1 H, Lymph # (Auto) 1.9, Hunt # (Auto) 0.6, Eos # (Auto) 0.2, Baso # (Auto) 0.1 10/06/21 13:40: Sodium 134 L, Potassium 3.7, Chloride 95 L, Carbon Dioxide 33 H, Anion Gap 9.7, BUN 32 H D, Creatinine 1.70 H, Estimated Creat Clear 39, Estimated GFR 30 L, Est GFR ( Amer) 36 L, Glucose 133 H, Calcium 9.1, Magnesium 1.3 L, Total Bilirubin 0.4, AST 32, ALT 17, Alkaline Phosphatase 115, Total Creatine Kinase 43, CK-MB (CK-2) 1.0 D, CK-MB (CK-2) Rel Index 2.3, Troponin I < 0.01, Total Protein 6.3, Albumin 3.6, Globulin 2.7, Albumin/Globulin Ratio 1.3 10/06/21 13:40: NT-Pro-B Natriuret Pep 1080 H, TSH 0.19
--- NOTE | 2021-10-06 13:27 | CT_ITS ---
PROCEDURE INFORMATION: Exam: CT Head Without Contrast Exam date and time: 10/06/2021 1:47 PM Age: 70 years old Clinical indication: Injury or trauma; Fall; Blunt trauma (contusions or hematomas); Without loss of consciousness; Additional info: Fall hit back of head and neck TECHNIQUE: Imaging protocol: Computed tomography of the head without contrast. Radiation optimization: All CT scans at this facility use at least one of these dose optimization techniques: automated exposure control; mA and/or kV adjustment per patient size (includes targeted exams where dose is matched to clinical indication); or iterative reconstruction. COMPARISON: CT HEAD/BRAIN WO CON 09/10/2019 9:28 AM FINDINGS: Brain: Normal. No hemorrhage. Unremarkable white matter. No mass effect. Cerebral ventricles: No ventriculomegaly. Paranasal sinuses: Visualized sinuses are unremarkable. No fluid levels. Mastoid air cells: Visualized mastoid air cells are well aerated. Bones/joints: Unremarkable. No acute fracture. Soft tissues: Unremarkable. IMPRESSION: No acute intracranial changes.
--- NOTE | 2021-10-06 13:27 | CT_ITS ---
PROCEDURE INFORMATION: Exam: CT Cervical Spine Without Contrast Exam date and time: 10/06/2021 1:50 PM Age: 70 years old Clinical indication: Injury or trauma; Fall TECHNIQUE: Imaging protocol: Computed tomography of the cervical spine without contrast. Radiation optimization: All CT scans at this facility use at least one of these dose optimization techniques: automated exposure control; mA and/or kV adjustment per patient size (includes targeted exams where dose is matched to clinical indication); or iterative reconstruction. COMPARISON: NECKWWO CT SOFT TISS.NECK W/WO CONT 05/19/2015 1:21 PM FINDINGS: Bones/joints: No acute fracture. Normal alignment. Mild hypertrophy and degeneration of some of the facet joints. Discs/Spinal canal/Neural foramina: No significant disc protrusion. No severe spinal canal stenosis. No significant neural foraminal narrowing. Lungs: Lung apices are normal. Soft tissues: Unremarkable. IMPRESSION: 1. No fractures or dislocations. 2. Minimal to mild facet joint degeneration.
--- NOTE | 2021-10-06 13:28 | XR_ITS ---
PROCEDURE INFORMATION: Exam: XR Chest Exam date and time: 10/06/2021 1:38 PM Age: 70 years old Clinical indication: Shortness of breath and other: Weakness; Additional info: Weak and SOB TECHNIQUE: Imaging protocol: Radiologic exam of the chest. Views: 2 views. COMPARISON: CR XR CHEST PORTABLE 10/05/2021 3:18 PM FINDINGS: Lungs: Chronic operative change demonstrated in the right lung. Pleural spaces: Unremarkable. No pleural effusion. No pneumothorax. Heart/Mediastinum: Unremarkable. No cardiomegaly. Bones/joints: Unremarkable. IMPRESSION: No evidence of acute cardiopulmonary disease.
[2021-10-06 13:53] LABS: Coronavirus 19, PCR Not Detected (NotDetected); Influenza A, PCR Not Detected (NotDetected); Influenza B, PCR Not Detected (NotDetected)
[2021-10-06 14:05] LABS: Basophils # 0.1 K/mm3 (0-0.2); Eosinophils # 0.2 K/mm3 (0.0-0.4); Eosinophils % 1.4 % (0.1-12.0); Hematocrit 42.7 % (37.0-47.0); Hemoglobin 13.9 g/dL (12.2-16.2); Lymphocytes # 1.9 K/mm3 (0.7-4.5); Lymphocytes % 15.8 % (10-50); Mean Corpuscular HGB Conc 32.4 g/dL (31.8-35.4); Mean Corpuscular Hemoglobin 29.7 pg (27.0-31.2); Mean Corpuscular Volume 91.7 fl (81-99); Mean Platelet Volume 10.3 fl (7.4-10.4); Monocytes # 0.6 K/mm3 (0.1-1.0); Monocytes % 5.2 % (1.7-9.3); Neutrophils # 9.1 K/mm3 (1.8-7.8); Neutrophils % 76.6 % (37.0-80.0); Platelet Count 259 K/mm3 (142-424); Red Blood Count 4.66 M/mm3 (4.20-5.40); Red Cell Distribution Width 14.6 % (11.5-17.5); White Blood Count 11.9 K/mm3 (4.8-10.8)
--- NOTE | 2021-10-06 14:06 | ECG_ITS ---
APPROVED REPORT Exam: Resting ECG HR:89 bpm ECG Measurements Heart Rate 89 AXES QRSd 81 QRS 46 QT 335 T 53 QTc 382 Conclusion ATRIAL FIBRILLATION ABNORMAL RHYTHM ECG UNCONFIRMED REPORT Electronically signed by : Dashawn Cedillo MD 10/07/2021 16:25:04
[2021-10-06 14:21] LABS: Microscopic, Urine URINE MICROSCOPIC (MICROSCOPIC)
[2021-10-06 14:23] LABS: ABG Base Excess 3.4 mmol/L (-2.4-2.3); ABG HCO3 28.8 mmhg (22.0-26.0); ABG Oxygen Saturation 98 % (90-100); ABG PH 7.36 mmol/L (7.35-7.45); ABG PO2 103.6 mmhg (80-100); ABG TCO2 30.4 mmhg (23-27)
[2021-10-06 14:25] LABS: Allen's Test Acceptable; Source Left Radial
[2021-10-06 14:25] LABS: Appearance,Urine CLEAR (Clear); Bilirubin,Urine Negative (Negative); Blood, Urine Negative (Negative); Color,Urine YELLOW (Yellow); Glucose,Urine (UA) Negative (Negative); Ketones,Urine Negative (Negative); Leukocyte Esterase,Urine Negative (Negative); Nitrate,Urine Negative (Negative); PH,Urine 5.5 (5.0-8.5); Protein,Urine TRACE (Negative); Specific Gravity, Urine 1.025 (1.005-1.030); Urobilinogen,Urine 0.2 EU/dl (0.2)
[2021-10-06 14:26] LABS: Chloride 95 mmol/L (98-107)
[2021-10-06 14:27] LABS: Sodium 134 mmol/L (136-145)
[2021-10-06 14:28] LABS: ABG PCO2 52.3 mmhg (35.0-45.0)
[2021-10-06 14:29] LABS: Alanine Aminotransferase 17 U/L (12-78); Alkaline Phosphatase 115 U/L (38-126); Aspartate Amino Transferase 32 U/L (14-36); Bilirubin,Total 0.4 mg/dl (0.2-1.3); Blood Urea Nitrogen 32 mg/dl (7-17); Calcium 9.1 mg/dl (8.4-10.2); Carbon Dioxide 33 mmol/L (22.0-30.0); Creatine Kinase 43 U/L (30-135); Creatinine Clearance Estimated 39 mL/min (50-200); Estimated Glomerular Filt Rate 30 ml/min (>60); GFR (African American) 36 ML/MIN (>60); Glucose 133 mg/dl (74-100)
[2021-10-06 14:35] LABS: Bacteria,Urine Trace /lpf; Squamous Epithelial Cell,Urine Occasional #/hpf (0-5)
[2021-10-06 14:37] LABS: Amphetamine/Metha Screen,Urine Negative ng/ml (<1000); Benzodiazepines Screen,Urine Negative ng/ml (<200)
[2021-10-06 14:38] LABS: Barbiturates Screen,Urine Negative ng/ml (<200)
[2021-10-06 14:38] LABS: CKMB Relative Index 2.3 U/L (0-4.0)
[2021-10-06 14:39] LABS: Cannabinoid Screen,Urine Negative ng/ml (<50); Cocaine Screen,Urine Negative ng/ml (<300)
[2021-10-06 14:40] LABS: NT Pro Brain Natriuretic Pep. 1080 pg/mL (0-125)
[2021-10-06 14:40] LABS: Methadone Screen,Urine Negative ng/ml (<300)
[2021-10-06 14:41] LABS: Opiate Screen,Urine Negative ng/ml (<300); Phencyclidine Screen,Urine Negative ng/ml (<25)
--- NOTE | 2021-10-06 14:49 | PC.NURSE ---
Pt resting on stretcher. Son at bedside, sleeping in w/c.
[2021-10-06 14:52] LABS: Troponin I < 0.01 ng/ml (0.00-0.034)
[2021-10-06 14:56] LABS: Albumin Level 3.6 g/dl (3.5-5.0); Albumin/Globulin Ratio 1.3 (1.1-1.8); Anion Gap 9.7 mEq/L (5-15); Globulin 2.7 g/dL (1.3-3.2); Magnesium 1.3 mg/dl (1.6-2.3); Potassium 3.7 mmoL/L (3.5-5.1); Total Protein,Serum 6.3 g/dl (6.3-8.2)
[2021-10-06 15:01] LABS: Thyroid Stimulating Hormone 0.19 uIU/mL (0.465-4.68)
--- NOTE | 2021-10-06 15:07 | PC.NURSE ---
MD at bedside, updating pt on test results.
== END 2021-10-06 15:27 | disposition home or self-care (01) ==
PROVIDERS: Emergency Provider Emergency Medicine; PCP Family Medicine
DX: R53.1 Weakness (principal); E03.9 Hypothyroidism, unspecified; E83.42 Hypomagnesemia; I48.91 Unspecified atrial fibrillation; I13.0 Hypertensive heart and chronic kidney disease with heart failure and stage 1 through stage 4 chronic kidney disease, or unspecified chronic kidney disease; I50.9 Heart failure, unspecified; N18.9 Chronic kidney disease, unspecified; E11.22 Type 2 diabetes mellitus with diabetic chronic kidney disease; S00.03XA Contusion of scalp, initial encounter; S16.1XXA Strain of muscle, fascia and tendon at neck level, initial encounter; W19.XXXA Unspecified fall, initial encounter; R09.02 Hypoxemia; Z99.81 Dependence on supplemental oxygen; Z91.19 Patient's noncompliance with other medical treatment and regimen
CPT/HCPCS: 70450; 71046; 72125; 80053; 80305; 81001; 82550; 82553; 82803; 83735; 83880; 84443; 84484; 85025; 93005; 99285; C9803; U0003; U0005